=== PATIENT | female | born 1960 | race Caucasian/White ===

== ENCOUNTER 2016-02-22 19:58 | Emergency (ER) | payer MEDICARE, OTHER ==
[~2016-02-22] VITALS: Ht 165.1 cm; Wt 59.0 kg
[~2016-02-22 19:58] MED LIST: ALPR2TAB7 PO; HYDR-3652 PO; PARO30TA74 PO; RISP4TAB17 PO
[2016-02-23] MEDS ORDERED: FLUCONAZOLE (100 MG) 100 MG TABLET ONE ×2 (00:55→00:56)
[2016-02-23] MEDS: FLUCONAZOLE (100 MG) 100 MG TABLET PO ONE (01:10)
[2016-02-23 02:24] VITALS: BP 111/70
== END 2016-02-23 03:12 | disposition home or self-care (01) ==
LOC: ER 20:00
DX: F10.129 Alcohol abuse with intoxication, unspecified (principal); B37.89 Other sites of candidiasis; Z93.3 Colostomy status
CPT/HCPCS: A4362

== ENCOUNTER 2016-02-25 18:44 | Emergency (ER) | payer MEDICARE, OTHER ==
[~2016-02-25] VITALS: Ht 167.6 cm; Wt 65.8 kg
[2016-02-25] MEDS ORDERED: LORAZEPAM INJ 2 MG/ML VIAL ONE (19:19)
[2016-02-25] MEDS ORDERED: HALOPERIDOL LACTATE INJ 5 MG/ML VIAL ONE (19:19)
[2016-02-25] MEDS ORDERED: diphenhydrAMINE HCL 50 MG/ML VIAL ONE ×2 (19:19→19:20)
[2016-02-25] MEDS ORDERED: HALOPERIDOL LACTATE INJ 5 MG/ML VIAL IM ONE (19:30)
[2016-02-25] MEDS ORDERED: diphenhydrAMINE HCL 50 MG/ML VIAL IM ONE (19:30)
[2016-02-25] MEDS ORDERED: LORAZEPAM INJ 2 MG/ML VIAL IM ONE (19:30)
[2016-02-25 19:39] LABS: BASOPHILS # (AUTO) 0.1 /CMM (0.0-0.2); BASOPHILS % (AUTO) 0.9 % (0.0-2.0); DIFF TOTAL % 100 %; EOSINOPHILS % (AUTO) 0.3 % (0.0-6.0); HEMATOCRIT 40 % (33-45); LYMPHOCYTES # (AUTO) 2.6 /CMM (0.8-4.8); LYMPHOCYTES % (AUTO) 46.5 % (20.0-44.0); MEAN CORPUSCULAR HEMOGLOBIN 29 PG (26.0-33.0); MEAN CORPUSCULAR HGB CONC 32 g/dl (31.0-36.0); MEAN CORPUSCULAR VOLUME 89 fL (82-100); MONOCYTES # (AUTO) 0.5 /CMM (0.1-1.30); MONOCYTES % (AUTO) 8.2 % (2.0-12.0); NEUTROPHILS # (AUTO) 2.5 /CMM (1.8-8.9); NEUTROPHILS % (AUTO) 44.1 % (43.0-81.0); PLATELET COUNT (AUTO) 125 /CMM (150-450); RED BLOOD CELL COUNT(AUTO) 4.51 MIL/uL (4.0-5.2); WHITE BLOOD COUNT (AUTO) 5.7 K/uL (4.3-11.0)
[2016-02-25 19:46] LABS: ANION GAP 11 (5-14); CALCIUM, SERUM 8.1 mg/dL (8.5-10.1); CARBON DIOXIDE 29 mmol/L (21-32); CHLORIDE 102 mmol/L (98-107); CREATININE 0.6 mg/dL (0.6-1.3); GFR 104 mL/min (>60); GLUCOSE 104 mg/dL (74-106); SODIUM SERUM 138 mmol/L (136-145); UREA NITROGEN, BLOOD 7 mg/dL (7-18)
[2016-02-25 20:05] LABS: ACETAMINOPHEN < 1 ug/ml (10-30); SALICYLATE < 1.0 mg/dL (2.8-20.0)
[2016-02-26 06:07] VITALS: BP 136/66
== END 2016-02-26 06:08 | disposition home or self-care (01) ==
LOC: ER 18:55
DX: F10.129 Alcohol abuse with intoxication, unspecified (principal); R51 Headache; F29 Unspecified psychosis not due to a substance or known physiological condition; Z91.011 Allergy to milk products; Z93.3 Colostomy status
CPT/HCPCS: 36415; 70450; 80048; 85025; 96372 ×3; 99285; A4606; G0480; G0481; G0482; J1200 ×2; J1630; J2060; G6038-TC; G6039-TC; G6040-TC; Z7610

== ENCOUNTER 2016-02-27 09:45 | Emergency (ER) | payer MEDICARE, OTHER ==
[~2016-02-27] VITALS: Ht 167.6 cm; Wt 74.8 kg
[2016-02-27 09:54] VITALS: BP 133/81
== END 2016-02-27 11:36 | disposition home or self-care (01) ==
LOC: ER 09:47
DX: Z93.3 Colostomy status (principal); F29 Unspecified psychosis not due to a substance or known physiological condition; Z91.011 Allergy to milk products
CPT/HCPCS: 99284; A4606; Z7610

== ENCOUNTER → 2016-03-03 | Emergency (ER) | payer MEDICARE, OTHER ==
[~2016-03-03] VITALS: Ht 165.1 cm; Wt 54.4 kg
[2016-03-03 06:42] VITALS: BP 114/69
== END | disposition home or self-care (01) ==
LOC: ER 03:00
DX: F10.129 Alcohol abuse with intoxication, unspecified (principal); F29 Unspecified psychosis not due to a substance or known physiological condition; Z93.3 Colostomy status
CPT/HCPCS: 71020; 82962; 99284; A4606; Z7610

== ENCOUNTER 2016-03-05 10:55 | Emergency (ER) | payer MEDICARE, OTHER ==
[~2016-03-05] VITALS: Ht 160 cm; Wt 65.8 kg
[2016-03-05 18:49] VITALS: BP 141/84
== END 2016-03-05 18:52 | disposition home or self-care (01) ==
LOC: ER 11:05
DX: F10.129 Alcohol abuse with intoxication, unspecified (principal); Z93.3 Colostomy status; Z91.011 Allergy to milk products
CPT/HCPCS: A4606; Z7610

== ENCOUNTER 2016-03-06 19:42 | Emergency (ER) | payer MEDICARE, OTHER ==
[~2016-03-06] VITALS: Ht 160 cm; Wt 65.8 kg
[2016-03-06 20:29] VITALS: BP 122/84
== END 2016-03-06 20:30 | disposition home or self-care (01) ==
LOC: ER 19:43
DX: F10.129 Alcohol abuse with intoxication, unspecified (principal); F29 Unspecified psychosis not due to a substance or known physiological condition; Z93.3 Colostomy status; Z91.011 Allergy to milk products
CPT/HCPCS: 99283; A4606; Z7610

== ENCOUNTER 2016-03-11 22:43 | Emergency (ER) | payer MEDICARE, OTHER ==
[~2016-03-11] VITALS: Ht 165.1 cm; Wt 59.9 kg
[2016-03-12 05:51] VITALS: BP 141/76
== END 2016-03-12 05:53 | disposition home or self-care (01) ==
LOC: ER 22:44
DX: F10.129 Alcohol abuse with intoxication, unspecified (principal); F29 Unspecified psychosis not due to a substance or known physiological condition; Z93.3 Colostomy status; Z91.011 Allergy to milk products
CPT/HCPCS: 99283; A4606; Z7610

== ENCOUNTER 2016-03-13 14:28 | Emergency (ER) | payer MEDICARE, OTHER ==
[~2016-03-13] VITALS: Ht 165.1 cm; Wt 61.2 kg
[2016-03-13 14:28] VITALS: BP 128/75
== END 2016-03-13 14:49 | disposition home or self-care (01) ==
LOC: ER 14:30
DX: K94.03 Colostomy malfunction (principal); F10.10 Alcohol abuse, uncomplicated; Z93.3 Colostomy status; Z91.011 Allergy to milk products
CPT/HCPCS: 99284; A4606; Z7610

== ENCOUNTER 2016-03-13 23:06 | Emergency (ER) | payer MEDICARE, OTHER ==
[~2016-03-13] VITALS: Ht 167.6 cm; Wt 61.2 kg
[2016-03-14 07:12] VITALS: BP 112/72
== END 2016-03-14 07:12 | disposition home or self-care (01) ==
LOC: ER 23:08
DX: F10.129 Alcohol abuse with intoxication, unspecified (principal); R79.89 Other specified abnormal findings of blood chemistry; Z93.3 Colostomy status; Z91.011 Allergy to milk products
CPT/HCPCS: 82962-TC; A4606; Z7610

== ENCOUNTER 2016-03-14 16:53 | Emergency (ER) | payer MEDICARE, OTHER ==
[~2016-03-14] VITALS: Ht 167.6 cm; Wt 59.0 kg
[2016-03-14 16:56] VITALS: BP 128/69
== END 2016-03-14 17:08 | disposition left against medical advice (07) ==
LOC: ER 16:56
DX: Z53.21 Procedure and treatment not carried out due to patient leaving prior to being seen by health care provider (principal)
CPT/HCPCS: A4606; Z7610

== ENCOUNTER 2016-03-15 19:10 | Emergency (ER) | payer MEDICARE, OTHER ==
[~2016-03-15] VITALS: Ht 165.1 cm; Wt 59.0 kg
[2016-03-15 19:14] VITALS: BP 145/78
== END 2016-03-15 21:04 | disposition left against medical advice (07) ==
LOC: EDUNIT# 19:10 → ER 19:18
DX: Z53.21 Procedure and treatment not carried out due to patient leaving prior to being seen by health care provider (principal)
CPT/HCPCS: A4606; Z7610

== ENCOUNTER 2016-03-16 08:26 | Emergency (ER) | payer MEDICARE, OTHER ==
[~2016-03-16] VITALS: Ht 162.6 cm; Wt 59.0 kg
[2016-03-16 08:28] VITALS: BP 134/77
== END 2016-03-16 08:32 | disposition home or self-care (01) ==
LOC: ER 08:28
DX: F10.10 Alcohol abuse, uncomplicated (principal); K94.03 Colostomy malfunction; Z59.0 Homelessness; Z93.3 Colostomy status; Z91.011 Allergy to milk products
CPT/HCPCS: 99284; A4606; Z7610

== ENCOUNTER 2016-03-16 09:27 | Emergency (ER) | payer MEDICARE, OTHER ==
[~2016-03-16] VITALS: Ht 162.6 cm; Wt 61.2 kg
[2016-03-16 09:30] VITALS: BP 136/71
== END 2016-03-16 09:52 | disposition home or self-care (01) ==
LOC: ER 09:31
DX: F10.10 Alcohol abuse, uncomplicated (principal); K94.03 Colostomy malfunction; Z93.3 Colostomy status; Z91.011 Allergy to milk products
CPT/HCPCS: 99284; A4606; Z7610

== ENCOUNTER 2016-03-19 19:26 | Emergency (ER) | payer MEDICARE, OTHER ==
[~2016-03-19] VITALS: Ht 162.6 cm; Wt 61.2 kg
[2016-03-19 19:29] VITALS: BP 137/73
== END 2016-03-19 20:55 | disposition left against medical advice (07) ==
LOC: ER 19:31
DX: Z53.21 Procedure and treatment not carried out due to patient leaving prior to being seen by health care provider (principal)
CPT/HCPCS: A4362; A4606; Z7610

== ENCOUNTER 2016-03-20 08:13 | Emergency (ER) | payer MEDICARE, OTHER ==
[~2016-03-20] VITALS: Ht 167.6 cm; Wt 60.8 kg
[2016-03-20 08:21] VITALS: BP 116/71
== END 2016-03-20 08:51 | disposition home or self-care (01) ==
LOC: ER 08:16
DX: F10.129 Alcohol abuse with intoxication, unspecified (principal); F29 Unspecified psychosis not due to a substance or known physiological condition; Z93.3 Colostomy status; Z91.011 Allergy to milk products
CPT/HCPCS: 99283; A4606; Z7610

== ENCOUNTER 2016-03-20 23:37 | Emergency (ER) | payer MEDICARE, OTHER ==
[~2016-03-20] VITALS: Ht 165.1 cm; Wt 59.0 kg
[2016-03-20 23:40] VITALS: BP 139/72
== END 2016-03-21 00:42 | disposition home or self-care (01) ==
LOC: ER 23:39
DX: F10.129 Alcohol abuse with intoxication, unspecified (principal); Z93.3 Colostomy status; Z91.011 Allergy to milk products
CPT/HCPCS: 99284; A4362; A4606; Z7610

== ENCOUNTER → 2016-03-20 | Emergency (ER) | payer MEDICARE, OTHER ==
[~2016-03-20] VITALS: Ht 167.6 cm; Wt 74.8 kg
[2016-03-20 09:58] VITALS: BP 126/71
== END | disposition home or self-care (01) ==
LOC: ER 09:55
DX: F10.129 Alcohol abuse with intoxication, unspecified (principal); F29 Unspecified psychosis not due to a substance or known physiological condition; Z91.011 Allergy to milk products
CPT/HCPCS: 99283; A4606; Z7610

== ENCOUNTER → 2016-03-20 | Emergency (ER) | payer MEDICARE, OTHER ==
[~2016-03-20] VITALS: Ht 167.6 cm; Wt 72.6 kg
[2016-03-20 10:55] VITALS: BP 126/71
== END | disposition home or self-care (01) ==
LOC: ER 10:51
DX: F10.129 Alcohol abuse with intoxication, unspecified (principal); Z91.011 Allergy to milk products; Z59.0 Homelessness
CPT/HCPCS: 99283; A4606; Z7610

== ENCOUNTER 2016-03-21 12:45 | Emergency (ER) | payer MEDICARE, OTHER ==
[~2016-03-21] VITALS: Ht 167.6 cm; Wt 70.3 kg
[2016-03-21 13:03] VITALS: BP 133/81
== END 2016-03-21 16:30 | disposition home or self-care (01) ==
LOC: ER 12:51
DX: F10.129 Alcohol abuse with intoxication, unspecified (principal); Z93.3 Colostomy status; Z91.011 Allergy to milk products
CPT/HCPCS: 99284; A4606; Z7610

== ENCOUNTER 2016-03-25 16:33 | Emergency (ER) | payer MEDICARE, OTHER ==
[~2016-03-25] VITALS: Ht 160 cm; Wt 63.5 kg
[2016-03-25 17:14] LABS: BASOPHILS % (AUTO) 0.4 % (0.0-2.0); DIFF TOTAL % 100 %; EOSINOPHILS % (AUTO) 0.5 % (0.0-6.0); HEMATOCRIT 33 % (33-45); HEMOGLOBIN 11.4 g/dL (11.5-14.8); LYMPHOCYTES # (AUTO) 2.9 /CMM (0.8-4.8); LYMPHOCYTES % (AUTO) 41.4 % (20.0-44.0); MEAN CORPUSCULAR HEMOGLOBIN 31 PG (26.0-33.0); MEAN CORPUSCULAR HGB CONC 34 g/dl (31.0-36.0); MEAN CORPUSCULAR VOLUME 90 fL (82-100); MONOCYTES # (AUTO) 0.8 /CMM (0.1-1.30); MONOCYTES % (AUTO) 11.8 % (2.0-12.0); NEUTROPHILS # (AUTO) 3.2 /CMM (1.8-8.9); NEUTROPHILS % (AUTO) 45.9 % (43.0-81.0); PLATELET COUNT (AUTO) 143 /CMM (150-450); RED BLOOD CELL COUNT(AUTO) 3.69 MIL/uL (4.0-5.2)
[2016-03-25 17:17] LABS: INR 1.09 (0.87-1.13); PROTHROMBIN TIME 11.4 SECS (9.5-12.7)
[2016-03-25 17:20] LABS: CALCIUM, SERUM 8.5 mg/dL (8.5-10.1); CREATININE 0.6 mg/dL (0.6-1.3); POTASSIUM 3.1 mmol/L (3.5-5.1)
[2016-03-25 17:25] LABS: ALBUMIN 3.6 g/dL (3.4-5.0); BILIRUBIN,DIRECT 0.1 mg/dL (0.0-0.2); BILIRUBIN,TOTAL 0.5 mg/dL (0.2-1.0); TOTAL PROTEIN, SERUM 7.8 g/dL (6.4-8.2)
[2016-03-25 17:31] LABS: INDIRECT BILIRUBIN 0.4 mg/dL (0.0-1.1)
[2016-03-25 23:43] VITALS: BP 125/76
== END 2016-03-25 23:44 | disposition home or self-care (01) ==
LOC: ER 16:35
DX: F10.129 Alcohol abuse with intoxication, unspecified (principal); K70.10 Alcoholic hepatitis without ascites; Z93.3 Colostomy status; Z91.011 Allergy to milk products
CPT/HCPCS: 36415; 80048-TC; 80076-TC; 85025-TC; 85730-TC; A4606; G6040-TC; Z7610

== ENCOUNTER 2016-06-30 20:24 | Emergency (ER) | payer MEDICARE, OTHER | END 2016-06-30 21:23 | disposition left against medical advice (07) | LOC: ER 20:26 | DX: Z53.21 Procedure and treatment not carried out due to patient leaving prior to being seen by health care provider (principal) ==

== ENCOUNTER 2016-07-11 22:21 | Emergency (ER) | payer MEDICARE, OTHER ==
[~2016-07-11] VITALS: Ht 157.5 cm; Wt 54.4 kg
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
--- NOTE | 2016-07-12 05:15 | NUR ---
COLOSTOMY SITE CLEANED AND BAG CHANGED.
--- NOTE | 2016-07-12 05:45 | NUR ---
PT OK TO DISCHARGE PER DR MARINA. Patient discharged to home in stable condition. Written and verbal after care instructions given. Patient verbalizes understanding of instruction.Patient is awake and alert to self, day, and place. PT ambulatory with a steady gait
[2016-07-12 06:20] VITALS: BP 124/72
== END 2016-07-12 06:21 | disposition home or self-care (01) ==
LOC: ER 22:22
DX: F10.129 Alcohol abuse with intoxication, unspecified (principal); M54.2 Cervicalgia; Z93.3 Colostomy status
CPT/HCPCS: 82962; 99284; A4606; Z7610

== ENCOUNTER → 2016-07-15 | Emergency (ER) | payer MEDICARE, OTHER | END | disposition left against medical advice (07) | LOC: ER 03:59 | DX: Z53.21 Procedure and treatment not carried out due to patient leaving prior to being seen by health care provider (principal) ==

== ENCOUNTER 2016-08-22 22:28 | Emergency (ER) | payer MEDICARE, OTHER ==
[~2016-08-22] VITALS: Ht 165.1 cm; Wt 59.0 kg
[2016-08-23 08:16] VITALS: BP 112/70
== END 2016-08-23 08:17 | disposition home or self-care (01) ==
LOC: ER 22:29
DX: F10.129 Alcohol abuse with intoxication, unspecified (principal); R79.89 Other specified abnormal findings of blood chemistry; Z93.3 Colostomy status; Z91.011 Allergy to milk products
CPT/HCPCS: 82962-TC; A4606; Z7610

== ENCOUNTER 2016-09-19 12:29 | Emergency (ER) | payer MEDICARE, OTHER ==
[~2016-09-19] VITALS: Ht 162.6 cm; Wt 59.0 kg
--- NOTE | 2016-09-19 12:38 | NUR ---
HE RAINEY FROM STREET WITH ETOH NOTED ON BREATH. GOWNED PT . PLACED ON MONITOR . AWAITING MD ORDER
[2016-09-19] MEDS ORDERED: OLANZAPINE 10 MG VIAL IM ONE ×2 (12:43→13:00)
--- NOTE | 2016-09-19 13:33 | NUR ---
VERBAL ORDER FROM DR CAMILO TO GIVE ZYPREXA IM FOR AGITATION.
--- NOTE | 2016-09-19 15:15 | NUR ---
PT SLEEPING AROUSABLE TO CALL OF NAME GOES BACK TO SLEEP
[2016-09-19 20:17] VITALS: BP 120/75
--- NOTE | 2016-09-19 20:17 | NUR ---
Patient discharged to home in stable condition. Written and verbal after care instructions given. Patient verbalizes understanding of instruction.
== END 2016-09-19 20:17 | disposition home or self-care (01) ==
LOC: ER 12:30
DX: F10.129 Alcohol abuse with intoxication, unspecified (principal); Z93.3 Colostomy status; Z91.011 Allergy to milk products
CPT/HCPCS: A4606; J3490; Z7610

== ENCOUNTER 2016-09-23 20:49 | Emergency (ER) | payer MEDICARE, OTHER ==
[~2016-09-23] VITALS: Ht 165.1 cm; Wt 59.0 kg
--- NOTE | 2016-09-23 20:49 | NUR ---
BB RA78 FROM PARKING LOT. BYSTANDER CALLED 911 FOR PT SLEEPING BY CAR. PER EMS REPORT, PT FOUND W02/20 EMPTY BOTTLE OF VODKA. ETOH ODOR NOTED. PLACED ON MONITOR. AWAITING MD ORDER
--- NOTE | 2016-09-23 23:29 | NUR ---
GAVE REPORT TO FRANCES FOR SANTANA
--- NOTE | 2016-09-24 04:28 | NUR ---
patient sleeping comfortably at this time. nad noted. breathing even and unlabored. safety measures maintained.
[2016-09-24 05:56] VITALS: BP 132/74
--- NOTE | 2016-09-24 05:56 | NUR ---
Patient discharged to home in stable condition. Written and verbal after care instructions given. Patient verbalizes understanding of instruction. Patient is ambulatory with steady gait, no further complaints.
== END 2016-09-24 05:57 | disposition home or self-care (01) ==
LOC: ER 20:49
DX: F10.129 Alcohol abuse with intoxication, unspecified (principal); F17.200 Nicotine dependence, unspecified, uncomplicated; Z93.3 Colostomy status; Z91.011 Allergy to milk products
CPT/HCPCS: A4606; Z7610

== ENCOUNTER 2016-09-28 21:12 | Emergency (ER) | payer MEDICARE, OTHER ==
[~2016-09-28] VITALS: Ht 165.1 cm; Wt 65.8 kg
[2016-09-28 21:17] VITALS: BP 128/86
--- NOTE | 2016-09-28 22:17 | NUR ---
pt is medically cleared for booking. provided w/ new colostomy bag. d/c to pd in stable condition.
== END 2016-09-28 22:21 ==
LOC: ER 21:15
DX: Z00.8 Encounter for other general examination (principal); F19.10 Other psychoactive substance abuse, uncomplicated; F17.200 Nicotine dependence, unspecified, uncomplicated; Z93.3 Colostomy status; Z91.011 Allergy to milk products
CPT/HCPCS: 99283; A4606; Z7610

== ENCOUNTER 2016-10-04 21:10 | Emergency (ER) | payer MEDICARE, OTHER ==
[~2016-10-04] VITALS: Ht 165.1 cm; Wt 61.2 kg
[2016-10-04 21:22] VITALS: BP 121/75
--- NOTE | 2016-10-04 21:22 | NUR ---
pt ivana streets for etoh intoxication. ambulatory w/ steady gait to bed w/ resp even & unlabored, denies any pain, no sob, refusing to answer any questions w/ no acute distress noted. pt on continuous monitoring, bed low to ground side rails up for safety.
--- NOTE | 2016-10-04 22:08 | NUR ---
pt seen walking out of ER, ambulatory w/ steady gait, refusing to wait for any discharge instructions. pt eloped fr ER. notified.
== END 2016-10-04 22:08 | disposition left against medical advice (07) ==
LOC: ER 21:12
DX: Z53.21 Procedure and treatment not carried out due to patient leaving prior to being seen by health care provider (principal)
CPT/HCPCS: A4606; Z7610

== ENCOUNTER 2016-10-10 23:53 | Emergency (ER) | payer MEDICARE, OTHER ==
[~2016-10-10] VITALS: Ht 165.1 cm; Wt 61.2 kg
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
[2016-10-11] MEDS ORDERED: LORAZEPAM INJ 2 MG/ML VIAL ONE ×2 (00:14→00:46)
[2016-10-11] MEDS ORDERED: LORAZEPAM INJ 2 MG/ML VIAL IM ONE ×2 (00:30→01:00)
--- NOTE | 2016-10-11 01:22 | NUR ---
STILL YELLING AND USING AGGRESSIVE LANGUAGE. STRIPPED CLOTHES OFF AND WALKING AROUND NAKED. REDIRECTED AND PLACED BACK IN BED.
--- NOTE | 2016-10-11 02:40 | NUR ---
QUIET AND INTERMITTENTLY CLOSING EYES. ON MONITOR. NAD NOTED. RESP EVEN AND UNLABORED.
--- NOTE | 2016-10-11 03:10 | NUR ---
RESTING ON LT SIDE WITH EYES CLOSED BUT AROUSABLE. NO S/S OF DISTRESS NOTED. RESP EVEN AND UNLABORED. STILL ON MONITOR.
--- NOTE | 2016-10-11 04:44 | NUR ---
REMAINS RESTIGN WITH NO S/S OF DISTRESS. RESP EVEN AND UNLABORED.
--- NOTE | 2016-10-11 05:16 | NUR ---
RESTING ON RT SIDE WITH NO S/S OF DISTRESS. RESP EVEN AND UNLABORED. STILL ON MONITOR.
--- NOTE | 2016-10-11 06:56 | NUR ---
Patient discharged to home in stable condition. Written and verbal after care instructions given. Patient verbalizes understanding of instruction. Ambulatory with a steady gait
[2016-10-11 06:57] VITALS: BP 121/68
== END 2016-10-11 06:57 | disposition home or self-care (01) ==
LOC: ER 23:54
DX: F10.129 Alcohol abuse with intoxication, unspecified (principal); R45.1 Restlessness and agitation; F19.10 Other psychoactive substance abuse, uncomplicated; F17.200 Nicotine dependence, unspecified, uncomplicated; Z93.3 Colostomy status; Z91.011 Allergy to milk products
CPT/HCPCS: A4606; J2060; Z7610

== ENCOUNTER → 2016-10-10 | Emergency (ER) | payer MEDICARE, OTHER ==
[~2016-10-10] VITALS: Ht 165.1 cm; Wt 61.2 kg
--- NOTE | 2016-10-10 13:00 | NUR ---
PATIENT'S WANTS STO LEAVE ED. VERBALIZED UNDERSTANDING OF PLAN OF CARE. AWARE
== END | disposition left against medical advice (07) ==
LOC: ER 11:58
DX: Z53.21 Procedure and treatment not carried out due to patient leaving prior to being seen by health care provider (principal)
CPT/HCPCS: A4606; Z7610

== ENCOUNTER 2016-10-14 16:52 | Emergency (ER) | payer MEDICARE, OTHER ==
[~2016-10-14] VITALS: Ht 165.1 cm; Wt 65.8 kg
--- NOTE | 2016-10-14 18:15 | NUR ---
Patient is resting comfortably in bed with eyes closed. Easily aroused. VSS.
--- NOTE | 2016-10-14 19:30 | NUR ---
Patient is resting comfortably in bed with eyes closed. Easily aroused. VSS
--- NOTE | 2016-10-14 20:30 | NUR ---
PATIENT ATE [place]. CARMEN
--- NOTE | 2016-10-14 21:30 | NUR ---
Patient is resting comfortably in bed with eyes closed. Easily aroused. VSS
[2016-10-14 22:32] VITALS: BP 138/82
--- NOTE | 2016-10-14 22:32 | NUR ---
Patient is resting comfortably in bed with eyes closed. Easily aroused. VSS
--- NOTE | 2016-10-15 06:52 | NUR ---
pt ok to discharge per dr masterson. Patient discharged to home in stable condition. Written and verbal after care instructions given. Patient verbalizes understanding of instruction.Patient is awake and alert to self, day, and place. pt ambulatory with a steady gait
== END 2016-10-15 07:14 | disposition home or self-care (01) ==
LOC: ER 16:55
DX: F10.129 Alcohol abuse with intoxication, unspecified (principal); R41.82 Altered mental status, unspecified; Z93.3 Colostomy status; F17.200 Nicotine dependence, unspecified, uncomplicated
CPT/HCPCS: 99283; A4606 ×2; Z7610

== ENCOUNTER 2016-10-16 14:07 | Emergency (ER) | payer MEDICARE, OTHER ==
[~2016-10-16] VITALS: Ht 167.6 cm; Wt 65.8 kg
--- NOTE | 2016-10-16 14:14 | NUR ---
BBRA FROM STREETS: ETOH. PATIENT IS AWAKE AND ALERT. VSS
--- NOTE | 2016-10-16 14:50 | NUR ---
SHIRA TO ED FOR POSSIBLE PLACEMENT DISCUSSION
--- NOTE | 2016-10-16 15:27 | NUR ---
Social service consult for homelessness and placement. Pt. is a 56 year old female who was brought to ED for alcohol intoxication. SINDY is familiar with pt. from previous admissions. SINDY and pillowcase maker Cindy met with pt. bedside. Pt. is alert and oriented x2. Pt. has slurred speech and is intoxicated. SW offered pt. retirement placement, however pt. declined. SINDY gave pt. the following resources: Homeless [employer] Directory of resources which include emergency housing, hot meals and showers, transitional housing resources, sack lunches, health resources such as [facility], [facility], [facility]. SINDY also gave pt. list of substance abuse resources which include [facility] .
--- NOTE | 2016-10-16 15:40 | NUR ---
SINDY contacted Taylor Mcdonald at [facility] Whole Person Care-Intensive Service Recipient to inquire if she could provide any assistance to pt. Taylor informed SW she will look into it and follow up with SINDY.
--- NOTE | 2016-10-16 16:20 | NUR ---
Patient is resting comfortably in bed with eyes closed. Easily aroused. VSS
--- NOTE | 2016-10-16 17:00 | NUR ---
Patient is resting comfortably in bed with eyes closed. Easily aroused. VSS
[2016-10-16 19:27] VITALS: BP 122/78
--- NOTE | 2016-10-16 19:27 | NUR ---
Patient discharged to home in stable condition. Written and verbal after care instructions given. Patient verbalizes understanding of instruction.
--- NOTE | 2016-10-17 10:35 | NUR ---
SINDY received [facility] [address] Mobile Triage Referral form from Taylor CALLAHAN completed form and faxed to [facility] at .
== END 2016-10-16 19:28 | disposition home or self-care (01) ==
LOC: ER 14:13
DX: F10.10 Alcohol abuse, uncomplicated (principal); Z93.3 Colostomy status; Z91.011 Allergy to milk products; F17.200 Nicotine dependence, unspecified, uncomplicated
CPT/HCPCS: 99284; A4606; Z7610

== ENCOUNTER 2016-10-17 15:52 | Emergency (ER) | payer MEDICARE, OTHER ==
[~2016-10-17] VITALS: Ht 165.1 cm; Wt 65.8 kg
--- NOTE | 2016-10-17 15:57 | NUR ---
PT HAKAN FROM THE STREETS TO ER BED 12. HERE FOR ETOH. NO OBVIOUS TRAUMA NOTED. GOWNED AND PLACED ON MONITOR. NAD NOTED. AWAITING MD SALEH.
[2016-10-17 17:10] VITALS: BP 136/82
--- NOTE | 2016-10-17 17:10 | NUR ---
PT IS ROAD TESTED. AMBULATES W/ STEADY GAIT. LUANNE EASON AWARE.
--- NOTE | 2016-10-17 17:24 | NUR ---
Patient discharged to waiting room in stable condition. Written and verbal after care instructions given. Patient verbalizes understanding of instruction. Ambulatory,steady gait.
== END 2016-10-17 17:27 | disposition home or self-care (01) ==
LOC: ER 15:55
DX: F10.20 Alcohol dependence, uncomplicated (principal); F17.200 Nicotine dependence, unspecified, uncomplicated; Z91.040 Latex allergy status; Z93.3 Colostomy status
CPT/HCPCS: A4606; Z7610

== ENCOUNTER 2016-10-17 20:57 | Emergency (ER) | payer MEDICARE, OTHER ==
[~2016-10-17] VITALS: Ht 162.6 cm; Wt 54.4 kg
--- NOTE | 2016-10-17 21:00 | NUR ---
PT TO ER BB FROM STREET FOR ETOH. NO IMMEDIATE SIGNS OF DISTRESS NOTED UPON ARRIVAL. PT A/OX2. ADMITS TO DRINKING ALCOHOL. PT VITAL SIGNS NORMAL. PT CHANGED INTO GOWN AND CONNECTED TO MONITOR. WILL CONT TO MONITOR PT.
--- NOTE | 2016-10-18 00:10 | NUR ---
PT RESTING IN GURNEY. NO SIGNS OF DISTRESS NOTED. PT EASILY AROUSABLE. WILL CONT TO MONITOR PT.
--- NOTE | 2016-10-18 06:25 | NUR ---
PT OK TO DISCHARGE HOME PER DR PEACOCK. Patient discharged to home in stable condition. Written and verbal after care instructions given. Patient verbalizes understanding of instruction.Patient is awake and alert to self, day, and place. PT ambulatory with a steady gait
[2016-10-18 06:28] VITALS: BP 117/84
== END 2016-10-18 06:29 | disposition home or self-care (01) ==
LOC: ER 20:58
DX: F10.129 Alcohol abuse with intoxication, unspecified (principal); Z59.0 Homelessness; Z91.011 Allergy to milk products; F17.200 Nicotine dependence, unspecified, uncomplicated
CPT/HCPCS: 99284; A4606; Z7610

== ENCOUNTER 2016-10-18 10:40 | Emergency (ER) | payer MEDICARE, OTHER ==
[~2016-10-18] VITALS: Ht 170.2 cm; Wt 65.8 kg
[2016-10-18 10:44] VITALS: BP 133/75
--- NOTE | 2016-10-18 11:05 | NUR ---
PT BIBA FOR ETOH. NOTED AGITATED. REFUSED TO HAVE VS TAKE. SEEN BY MD FOR EVAL. SAFETY AND COMFORT MEASURES PROVIDED. WILL MONITOR.
--- NOTE | 2016-10-18 11:20 | NUR ---
PT WALKED NAKED IN THE HALLWAY, NOTED WITH STEADY GAIT. ASSISTED SAFELY TO THE BATHROOM TO SHOWER. PROVIDED, TOWELS, CLEAN TOP AND PANTS AND NEW COLOSTOMY BAG.
--- NOTE | 2016-10-18 11:30 | NUR ---
PT WANTS TO GO HOME. MD MADE AWARE. Patient discharged to home in stable condition. Written and verbal after care instructions given. Patient verbalizes understanding of instruction. Pt ambulatory with a steady gait. Provided with extra set of colostomy bag as requested.
== END 2016-10-18 12:02 | disposition home or self-care (01) ==
LOC: ER 10:43
DX: F10.129 Alcohol abuse with intoxication, unspecified (principal); Z93.3 Colostomy status; Z91.011 Allergy to milk products; F17.200 Nicotine dependence, unspecified, uncomplicated
CPT/HCPCS: 99284; A4606; Z7610

== ENCOUNTER 2016-10-18 12:43 | Emergency (ER) | payer MEDICARE, OTHER ==
[~2016-10-18] VITALS: Ht 170.2 cm; Wt 65.8 kg
--- NOTE | 2016-10-18 12:54 | NUR ---
HAKAN FROM STREET FOR ETOH. PATIENT RECEIVED AGITATED,. AGGRESSIVE, SCREAMING, YELLING AND CURSING TOWARDS STAFF. PATIENT IS AAAO4. AWARE
[2016-10-18] MEDS ORDERED: HALOPERIDOL LACTATE INJ 5 MG/ML VIAL ONE (12:59)
[2016-10-18] MEDS ORDERED: HALOPERIDOL LACTATE INJ 5 MG/ML VIAL IM ONE (13:00)
[2016-10-18] MEDS ORDERED: diphenhydrAMINE HCL 50 MG/ML VIAL IM ONE (13:30)
[2016-10-18] MEDS ORDERED: diphenhydrAMINE HCL 50 MG/ML VIAL ONE (13:33)
[2016-10-18 18:23] VITALS: BP 130/75
--- NOTE | 2016-10-18 18:23 | NUR ---
Patient discharged to home in stable condition. Written and verbal after care instructions given. Patient verbalizes understanding of instruction.
== END 2016-10-18 18:24 | disposition home or self-care (01) ==
LOC: ER 12:44
DX: F10.129 Alcohol abuse with intoxication, unspecified (principal); Z98.890 Other specified postprocedural states; Z91.011 Allergy to milk products; F17.200 Nicotine dependence, unspecified, uncomplicated
CPT/HCPCS: A4606; J1200; J1630; Z7610

== ENCOUNTER 2016-10-18 18:32 | Emergency (ER) | payer MEDICARE, OTHER ==
[~2016-10-18] VITALS: Ht 170.2 cm; Wt 65.8 kg
[2016-10-18 18:39] VITALS: BP 143/75
[2016-10-18] MEDS ORDERED: diphenhydrAMINE HCL 50 MG/ML VIAL IM ONE (19:30)
[2016-10-18] MEDS ORDERED: HALOPERIDOL LACTATE INJ 5 MG/ML VIAL IM ONE (19:30)
[2016-10-18] MEDS ORDERED: diphenhydrAMINE HCL 50 MG/ML VIAL ONE (19:38)
[2016-10-18] MEDS ORDERED: HALOPERIDOL LACTATE INJ 5 MG/ML VIAL ONE (19:38)
[2016-10-18] MEDS ORDERED: LORAZEPAM INJ 2 MG/ML VIAL ONE ×2 (20:44→21:37)
[2016-10-18] MEDS: LORAZEPAM INJ 2 MG/ML VIAL IM ONE ×2 (20:47→21:40)
--- NOTE | 2016-10-18 20:47 | NUR ---
ativan 2mg im l deltoid as ordered by dr vazquez
== END 2016-10-18 21:48 | disposition home or self-care (01) ==
LOC: ER 18:33
DX: F10.129 Alcohol abuse with intoxication, unspecified (principal); Z93.3 Colostomy status; Z91.011 Allergy to milk products; F17.200 Nicotine dependence, unspecified, uncomplicated
CPT/HCPCS: 96372 ×3; 99284; A4606; J1200; J1630; J2060 ×2; Z7610

== ENCOUNTER 2016-10-19 00:37 | Emergency (ER) | payer MEDICARE, OTHER ==
[~2016-10-19] VITALS: Ht 167.6 cm; Wt 54.4 kg
--- NOTE | 2016-10-19 00:46 | NUR ---
pt to er bb ra from street for etoh. pt sleeping upon arrival however arousable to painful stimuli. heavy smell of alcohol on pts breath. pt to er bed, changed into gown and connected to monitor. pt vital signs normal. breaths equal and unlabored. will cont to monitor pt.
--- NOTE | 2016-10-19 06:10 | NUR ---
pt ok to discharge per dr rich. Patient discharged to home in stable condition. Written and verbal after care instructions given. Patient verbalizes understanding of instruction.Patient is awake and alert to self, day, and place. pt ambulatory with a steady gait
[2016-10-19 06:30] VITALS: BP 128/74
--- NOTE | 2016-10-19 08:08 | NUR ---
SINDY received a call from Aroldo from [facility] [address] Mobile Triage team referral unit stating he received SINDY's referral and inquired where the pt. usually hangs out. SINDY informed him that pt. is usually around the [facility] area in [place]. Aroldo informed SINDY he will send a unit out to find pt. around the [facility].
== END 2016-10-19 06:31 | disposition home or self-care (01) ==
LOC: ER 00:39
DX: F10.129 Alcohol abuse with intoxication, unspecified (principal); Z93.3 Colostomy status; F17.200 Nicotine dependence, unspecified, uncomplicated; Z91.011 Allergy to milk products
CPT/HCPCS: 82962; 99283; A4606; Z7610

== ENCOUNTER → 2016-10-30 | Emergency (ER) | payer MEDICARE, OTHER | END | disposition home or self-care (01) | LOC: ER 18:49 | DX: F10.129 Alcohol abuse with intoxication, unspecified (principal); Z76.5 Malingerer [conscious simulation]; Z93.3 Colostomy status; Z91.011 Allergy to milk products ==

== ENCOUNTER 2016-11-13 09:01 | Emergency (ER) | payer MEDICARE, OTHER ==
[~2016-11-13] VITALS: Ht 157.5 cm; Wt 54.4 kg
--- NOTE | 2016-11-13 09:05 | NUR ---
HAKAN FROM STREET-- ETOH- FOUND VODKA ON HER LAP. PATIENT RECEIVED AAO3 WITH VSS.
--- NOTE | 2016-11-13 10:44 | NUR ---
SINDY contacted Dedrick Hill at [facility] informing him that pt. is currently in ED for intoxication. Dedrick informed SINDY he is on his way to [facility] ED to assess pt. for services. Addendum: 11/13/16 at 1046 by SHIRA CALLAHAN SINDY informed DANIE Tse from [facility]- Homeless Outreach coming to assess pt.
[2016-11-13 13:46] VITALS: BP 124/80
--- NOTE | 2016-11-13 13:47 | NUR ---
Patient discharged to home in stable condition. Written and verbal after care instructions given. Patient verbalizes understanding of instruction.
--- NOTE | 2016-11-13 14:16 | NUR ---
SINDY met with Dedrick from [facility] program and pt. bedside. Dedrick inquired with pt. if she wanted to go to detox and pt. stated "yes". Dedrick informed SINDY to refer patient to [facility] program and speak with Renuka Alejandro in intake. SINDY contacted Renuka Alejandro at [facility] who informed SW to fax clinicals to her at . SINDY faxed clinicals to Renuka at [facility]. Renuka informed SINDY that they do accept pt's with colostomy and will follow up with their nursing felt finishing supervisor.
== END 2016-11-13 13:48 | disposition home or self-care (01) ==
LOC: ER 09:02
DX: F10.229 Alcohol dependence with intoxication, unspecified (principal); F17.200 Nicotine dependence, unspecified, uncomplicated; Z93.3 Colostomy status; Z91.011 Allergy to milk products
CPT/HCPCS: 99283; A4606; Z7610

== ENCOUNTER 2016-11-18 23:38 | Emergency (ER) | payer MEDICARE, OTHER ==
[~2016-11-18] VITALS: Ht 157.5 cm; Wt 55.8 kg
--- NOTE | 2016-11-19 04:37 | NUR ---
Patient discharged in stable condition. Written and verbal after care instructions given. Patient verbalizes understanding of instruction. Refused to long-term placement at this time. Refused to receive a list of long-term around the area.
[2016-11-19 04:38] VITALS: BP 129/76
== END 2016-11-19 04:39 | disposition home or self-care (01) ==
LOC: ER 23:41
DX: F10.129 Alcohol abuse with intoxication, unspecified (principal); Z91.011 Allergy to milk products; Z93.3 Colostomy status; R41.82 Altered mental status, unspecified
CPT/HCPCS: 70450-TC; A4606; Z7610

== ENCOUNTER 2016-11-19 12:04 | Emergency (ER) | payer MEDICARE, OTHER ==
[~2016-11-19] VITALS: Ht 170.2 cm; Wt 65.8 kg
--- NOTE | 2016-11-19 12:06 | NUR ---
PT HAKAN FROM THE STREETS TO ER BED 16. HERE FOR ETOH. MULTIPLE ER VISITS FOR SAME REASON. NO OBVIOUS TRAUMA NOTED. AWAITING MD SALEH.
--- NOTE | 2016-11-19 12:17 | NUR ---
MATILDA EASON AT BEDSIDE FOR EVAL.
--- NOTE | 2016-11-19 22:20 | NUR ---
PT AWAKE, AMBULATORY W/ STEADY GAIT. PROVIDED W/ NEW COLOSTOMY BAG. D/C IN STABLE CONDITION.
[2016-11-19 22:29] VITALS: BP 128/64
== END 2016-11-19 22:30 | disposition home or self-care (01) ==
LOC: ER 12:07
DX: F10.129 Alcohol abuse with intoxication, unspecified (principal); Z98.890 Other specified postprocedural states; Z72.821 Inadequate sleep hygiene; R73.09 Other abnormal glucose; F17.200 Nicotine dependence, unspecified, uncomplicated
CPT/HCPCS: 82962; 99283; A4606; Z7610

== ENCOUNTER 2016-11-21 20:09 | Emergency (ER) | payer MEDICARE, OTHER ==
[~2016-11-21] VITALS: Ht 170.2 cm; Wt 65.8 kg
--- NOTE | 2016-11-21 20:10 | NUR ---
MICHAEL RA78 FROM [employer]. ETOH INTOXICATION PER EMS REPORT, BYSTANDER CALLED 911 DUE TO PT "PLAYING WITH COLOSTOMY." NAD NOTED, VSS, RESP EVEN AND UNLABORED, WAITING FOR MD SALEH.
--- NOTE | 2016-11-21 23:04 | NUR ---
Patient is resting comfortably in bed with eyes closed. Easily aroused. VSS
[2016-11-22 00:51] LABS: BASOPHILS % (AUTO) 0.6 % (0.0-2.0); EOSINOPHILS # (AUTO) 0.1 /CMM (0.0-0.7); EOSINOPHILS % (AUTO) 1.3 % (0.0-6.0); HEMATOCRIT 37 % (33-45); HEMOGLOBIN 12.5 g/dL (11.5-14.8); LYMPHOCYTES # (AUTO) 3.5 /CMM (0.8-4.8); LYMPHOCYTES % (AUTO) 69.5 % (20.0-44.0); MEAN CORPUSCULAR HEMOGLOBIN 33 PG (26.0-33.0); MEAN CORPUSCULAR HGB CONC 34 g/dl (31.0-36.0); MEAN CORPUSCULAR VOLUME 96 fL (82-100); MONOCYTES # (AUTO) 0.4 /CMM (0.1-1.30); MONOCYTES % (AUTO) 8.8 % (2.0-12.0); NEUTROPHILS % (AUTO) 19.8 % (43.0-81.0); PLATELET COUNT (AUTO) 147 /CMM (150-450); RDW COEFFICIENT OF VARIATION 14.2 (11.5-15.0); RED BLOOD CELL COUNT(AUTO) 3.82 MIL/uL (4.0-5.2)
--- NOTE | 2016-11-22 00:51 | NUR ---
PT REFUSED IV. RISK AND BENEFITS EXPLAINED X3. PT STRONGLY REFUSED.
--- NOTE | 2016-11-22 00:55 | NUR ---
PT TO CT.
[2016-11-22 00:59] LABS: CALCIUM, SERUM 8.2 mg/dL (8.5-10.1); CREATININE 0.7 mg/dL (0.6-1.3); POTASSIUM 3.6 mmol/L (3.5-5.1)
--- NOTE | 2016-11-22 01:00 | NUR ---
RETURNED FROM CT.
[2016-11-22 01:06] LABS: ALBUMIN 3.3 g/dL (3.4-5.0); BILIRUBIN,DIRECT 0.1 mg/dL (0.0-0.2); BILIRUBIN,TOTAL 0.2 mg/dL (0.2-1.0); SALICYLATE 0.6 mg/dL (2.8-20.0)
[2016-11-22 01:13] LABS: EOSINOPHILS % (MANUAL) 1 % (0-4); LYMPHOCYTES % (MANUAL) 69 % (16-48); MONOCYTES % (MANUAL) 7 % (0-11.0); NEUTROPHILS % (MANUAL) 23 (42-76)
--- NOTE | 2016-11-22 05:43 | NUR ---
Patient discharged to home in stable condition. Written and verbal after care instructions given. Patient verbalizes understanding of instruction. ambulatory with a steady gait. pt instructed not to drive. verbalize understanding.
[2016-11-22 05:48] VITALS: BP 126/55
== END 2016-11-22 06:01 | disposition home or self-care (01) ==
LOC: ER 20:11
DX: F10.229 Alcohol dependence with intoxication, unspecified (principal); R41.82 Altered mental status, unspecified
CPT/HCPCS: 36415; 70450; 71010; 72125; 80048; 80076; 80329; 85025; 93005; 99285; A4606; G0480 ×2; Z7610

== ENCOUNTER 2016-11-25 16:32 | Emergency (ER) | payer MEDICARE, OTHER ==
[~2016-11-25] VITALS: Ht 162.6 cm; Wt 65.8 kg
[2016-11-25 16:38] VITALS: BP 135/75
== END 2016-11-25 17:03 | disposition left against medical advice (07) ==
LOC: ER 16:34
DX: Z53.21 Procedure and treatment not carried out due to patient leaving prior to being seen by health care provider (principal)
CPT/HCPCS: A4606; Z7610

== ENCOUNTER 2016-11-26 21:10 | Emergency (ER) | payer MEDICARE, OTHER ==
[~2016-11-26] VITALS: Ht 157.5 cm; Wt 55.8 kg
--- NOTE | 2016-11-26 21:10 | NUR ---
PT HAKAN FROM THE STREETS TO ER BED 15. FOUND NAKED. ETOH. PT C/O R SHOULDER PAIN. VERBALLY RESPONSIVE, COOPERATIVE TO STAFF. NAD NOTED. AWAITING MD SALEH.
--- NOTE | 2016-11-26 23:29 | NUR ---
REPORT TO CHARGE NURSE LATRICE FOR SANTANA.
[2016-11-27 06:40] VITALS: BP 115/70
--- NOTE | 2016-11-27 06:42 | NUR ---
Patient discharged to home in stable condition. Written and verbal after care instructions given. Patient verbalizes understanding of instruction. pt ambulatory with a steady gait VITAL SIGNS WITHIN NORMAL LIMITS.
== END 2016-11-27 06:41 | disposition home or self-care (01) ==
LOC: ER 21:11
DX: F10.129 Alcohol abuse with intoxication, unspecified (principal); F17.200 Nicotine dependence, unspecified, uncomplicated; Z93.3 Colostomy status; Z91.040 Latex allergy status
CPT/HCPCS: 99283; A4606; Z7610

== ENCOUNTER 2016-12-28 14:47 | Emergency (ER) | payer MEDICARE, OTHER ==
[~2016-12-28] VITALS: Ht 165.1 cm; Wt 59.0 kg
[2016-12-28 14:47] VITALS: BP 132/71
== END 2016-12-28 14:56 | disposition home or self-care (01) ==
LOC: ER 14:48
DX: Z00.8 Encounter for other general examination (principal); Z93.3 Colostomy status; Z91.040 Latex allergy status; F17.200 Nicotine dependence, unspecified, uncomplicated; F10.10 Alcohol abuse, uncomplicated
CPT/HCPCS: A4362; A4606; Z7610

== ENCOUNTER 2016-12-28 18:08 | Emergency (ER) | payer MEDICARE, OTHER ==
[~2016-12-28] VITALS: Ht 167.6 cm; Wt 68.0 kg
[2016-12-28 18:08] VITALS: BP 130/75
--- NOTE | 2016-12-28 18:37 | NUR ---
Patient eloped from facility. ER notified. ANY WHEELER
== END 2016-12-28 18:39 | disposition left against medical advice (07) ==
LOC: ER 18:17
DX: F10.129 Alcohol abuse with intoxication, unspecified (principal); F10.10 Alcohol abuse, uncomplicated; F17.200 Nicotine dependence, unspecified, uncomplicated; K50.90 Crohn's disease, unspecified, without complications; Z59.0 Homelessness; Z93.3 Colostomy status; Z91.011 Allergy to milk products
CPT/HCPCS: A4606; Z7610

== ENCOUNTER 2016-12-30 16:17 | Emergency (ER) | payer MEDICARE, OTHER ==
[~2016-12-30] VITALS: Ht 162.6 cm; Wt 65.8 kg
--- NOTE | 2016-12-30 16:22 | NUR ---
PT BIBRA TO ER BED 15. HERE FOR ETOH. GOWNED AND PLACED ON MONITOR. STABLE VITALS. NAD NOTED AWAITING MD SALEH.
--- NOTE | 2016-12-30 17:46 | NUR ---
PT WANTS TO LEAVE ED. AMBULATORY W/ STEADY GAIT. D/C IN STABLE CONDITION.
[2016-12-30 17:48] VITALS: BP 132/70
== END 2016-12-30 17:49 | disposition home or self-care (01) ==
LOC: ER 16:21
DX: F10.129 Alcohol abuse with intoxication, unspecified (principal); F17.200 Nicotine dependence, unspecified, uncomplicated; Z93.3 Colostomy status; Z91.011 Allergy to milk products
CPT/HCPCS: 99283; A4606; Z7610

== ENCOUNTER 2016-12-30 19:03 | Emergency (ER) | payer MEDICARE, OTHER ==
[~2016-12-30] VITALS: Ht 162.6 cm; Wt 54.4 kg
--- NOTE | 2016-12-30 19:06 | NUR ---
PT BIBRA FROM THE STREETS TO ER BED 15. FOUND LYING IN THE STREETS. HERE FOR ETOH. HEHRE MULTIPLE TIMES FOR ETOH. PLACED ON MONITOR. NAD NOTED. AWAITING MD SALEH.
--- NOTE | 2016-12-30 19:46 | NUR ---
ECHO ODONNELL AT BEDSIDE FOR EVAL.
--- NOTE | 2016-12-30 23:00 | NUR ---
AMBULATORY W/ STEADY GAIT. D/C IN STABLE CONDITION
[2016-12-30 23:01] VITALS: BP 122/64
== END 2016-12-30 23:02 | disposition home or self-care (01) ==
LOC: ER 19:05
DX: F10.129 Alcohol abuse with intoxication, unspecified (principal); F17.200 Nicotine dependence, unspecified, uncomplicated; R79.9 Abnormal finding of blood chemistry, unspecified; Z91.011 Allergy to milk products; Z93.3 Colostomy status
CPT/HCPCS: 82962; 99283; A4606; Z7610

== ENCOUNTER 2017-01-01 13:00 | Emergency (ER) | payer MEDICARE, OTHER ==
[~2017-01-01] VITALS: Ht 157.5 cm; Wt 58.1 kg
[2017-01-01 16:45] VITALS: BP 127/71
== END 2017-01-01 17:06 | disposition home or self-care (01) ==
LOC: ER 13:02
DX: Z93.3 Colostomy status (principal); F10.10 Alcohol abuse, uncomplicated; F17.200 Nicotine dependence, unspecified, uncomplicated; Z91.040 Latex allergy status
CPT/HCPCS: 99284; A4606; Z7610

== ENCOUNTER 2017-01-05 10:50 | Emergency (ER) | payer MEDICARE, OTHER ==
[~2017-01-05] VITALS: Ht 167.6 cm; Wt 68.0 kg
--- NOTE | 2017-01-05 11:15 | NUR ---
BB ENGINE [address] ETOH INTOXICATION, NAD NOTED, VSS, RESP EVEN AND UNLABORED, AAO X2, WAITING FOR MD SALEH.
--- NOTE | 2017-01-05 14:05 | NUR ---
Patient is resting comfortably in bed with eyes closed. Easily aroused. VSS
[2017-01-05 17:07] VITALS: BP 127/85
--- NOTE | 2017-01-05 17:07 | NUR ---
Patient discharged to home in stable condition. Written and verbal after care instructions given. Patient verbalizes understanding of instruction.
== END 2017-01-05 17:08 | disposition home or self-care (01) ==
LOC: ER 10:51
DX: Z93.3 Colostomy status (principal); F10.129 Alcohol abuse with intoxication, unspecified; F17.200 Nicotine dependence, unspecified, uncomplicated; Z91.011 Allergy to milk products
CPT/HCPCS: 99284; A4606; Z7610

== ENCOUNTER 2017-01-06 14:03 | Emergency (ER) | payer MEDICARE, OTHER ==
[~2017-01-06] VITALS: Ht 162.6 cm; Wt 63.5 kg
--- NOTE | 2017-01-06 14:10 | NUR ---
BBRA [address] :ETOH INTOXICATION, NAD NOTED, VSS, RESP EVEN AND UNLABORED, WAITING FOR MD SALEH.
--- NOTE | 2017-01-06 15:11 | NUR ---
Patient is resting comfortably in bed with eyes closed. Easily aroused. VSS
--- NOTE | 2017-01-06 15:16 | NUR ---
ACCUCHECK DONE BS- 130mg/dl
--- NOTE | 2017-01-06 17:08 | NUR ---
Patient is resting comfortably in bed with eyes closed. Easily aroused. VSS
[2017-01-06 19:41] VITALS: BP 113/75
== END 2017-01-06 19:42 | disposition home or self-care (01) ==
LOC: ER 14:06
DX: F10.129 Alcohol abuse with intoxication, unspecified (principal); G93.40 Encephalopathy, unspecified; F17.200 Nicotine dependence, unspecified, uncomplicated; Z93.3 Colostomy status; Z91.011 Allergy to milk products; R73.09 Other abnormal glucose
CPT/HCPCS: 82962; 99283; A4362; A4606; Z7610

== ENCOUNTER 2017-01-07 02:18 | Emergency (ER) | payer MEDICARE, OTHER ==
[~2017-01-07] VITALS: Ht 165.1 cm; Wt 56.7 kg
--- NOTE | 2017-01-07 02:28 | NUR ---
HAKAN 878 FROM [facility] FOR ETOH. PT AOX3 RR EVEN AND UNLABORED. NO SOB NOTED. NAD NOTED. NO NVD. PT NOT DIAPHORETIC. PT PLACED ON MONITOR WAITING FOR MD SALEH. COLOSTOMY BAG INTACT.
--- NOTE | 2017-01-07 02:31 | NUR ---
ACCUCHECK = 139, DR. MARINA AWARE
--- NOTE | 2017-01-07 05:35 | NUR ---
DR. MARINA SPOKE TO PT REGARDING RESULTS
--- NOTE | 2017-01-07 05:41 | NUR ---
Patient discharged to home in stable condition. Written and verbal after care instructions given. pt refused to sign d/c paper. pt with steady gait
[2017-01-07 05:45] VITALS: BP 118/78
== END 2017-01-07 05:47 | disposition home or self-care (01) ==
LOC: ER 02:25
DX: F10.129 Alcohol abuse with intoxication, unspecified (principal); F17.200 Nicotine dependence, unspecified, uncomplicated; Z93.3 Colostomy status; Z91.011 Allergy to milk products; R73.09 Other abnormal glucose
CPT/HCPCS: 82962; 99283; A4606; Z7610

== ENCOUNTER 2017-01-08 12:24 | Emergency (ER) | payer MEDICARE, OTHER ==
[~2017-01-08] VITALS: Ht 162.6 cm; Wt 54.4 kg
--- NOTE | 2017-01-08 12:40 | NUR ---
BIB FROM STREET FOR POSSIBLE ETOH. PATIENT IS AWAKE AND ALERT. VSS
[2017-01-08 13:09] VITALS: BP 132/80
--- NOTE | 2017-01-08 13:09 | NUR ---
Patient discharged to home in stable condition. Written and verbal after care instructions given. Patient verbalizes understanding of instruction.
== END 2017-01-08 13:14 | disposition home or self-care (01) ==
LOC: ER 12:27
DX: F10.129 Alcohol abuse with intoxication, unspecified (principal); F17.200 Nicotine dependence, unspecified, uncomplicated; Z91.011 Allergy to milk products; Z93.3 Colostomy status
CPT/HCPCS: 99283; A4606; Z7610

== ENCOUNTER 2017-01-09 16:55 | Emergency (ER) | payer MEDICARE, OTHER ==
[~2017-01-09] VITALS: Ht 162.6 cm; Wt 56.7 kg
--- NOTE | 2017-01-09 16:55 | NUR ---
Patient was rustam RA from the street for etoh, pt is requesting colostomy bag change. Pt was seen here in the ER multipe times for same complaints. Pt denies any other complaints. Ambulatory to bed. vss nad rr even and unlabored. pending er md evaluation Addendum: 01/09/17 at 1739 by KATHIE patient is a/jennifer
--- NOTE | 2017-01-09 17:15 | NUR ---
pt provided w/ colostomy bag. on monitor. will cont to monitor.
--- NOTE | 2017-01-09 20:53 | NUR ---
sleeping in bed. on monitor. stable vitals. will ciont to monitor.
--- NOTE | 2017-01-09 21:44 | NUR ---
pt is aaox3. ambulatory w/ steady gait. wants to leave ed. d/c in stable condition.
[2017-01-09 21:46] VITALS: BP 125/65
== END 2017-01-09 21:48 | disposition home or self-care (01) ==
LOC: ER 16:58
DX: F10.129 Alcohol abuse with intoxication, unspecified (principal); Z43.3 Encounter for attention to colostomy; F17.200 Nicotine dependence, unspecified, uncomplicated; Z91.011 Allergy to milk products
CPT/HCPCS: 99284; A4606; Z7610

== ENCOUNTER 2017-01-10 23:12 | Emergency (ER) | payer MEDICARE, OTHER ==
[~2017-01-10] VITALS: Ht 165.1 cm; Wt 56.7 kg
--- NOTE | 2017-01-10 23:44 | NUR ---
ALEKSANDRA FROM THE [facility] FOR ETOH. PT AOX3 RR EVEN AND UNLABORED. NO SOB NOTED. NAD NOTE.D NO NVD AT THIS TIME. PT NOT DIAPHORETIC. PT PLACED ON MONITOR WAITING FOR MD SALEH.
--- NOTE | 2017-01-11 01:23 | NUR ---
PT SLEEPING IN BED IN NAD, PT ON MONITOR, MD LAURI MADE AWARE WILL CONTINUE TO MONITOR.
--- NOTE | 2017-01-11 04:53 | NUR ---
Patient given written and verbal discharge instructions. Patient verbalizes understanding of instructions. Patient is ambulatory with steady gait. Refuses offer of custodial placement. Patient given list of available shelters in surrounding area.
[2017-01-11 04:55] VITALS: BP 115/71
== END 2017-01-11 04:55 | disposition home or self-care (01) ==
LOC: ER 23:13
DX: F10.129 Alcohol abuse with intoxication, unspecified (principal); F17.200 Nicotine dependence, unspecified, uncomplicated; Z93.3 Colostomy status; Z91.011 Allergy to milk products; R73.09 Other abnormal glucose
CPT/HCPCS: 82962; 99283; A4606; Z7610

== ENCOUNTER 2017-01-11 10:41 | Emergency (ER) | payer MEDICARE, OTHER ==
[~2017-01-11] VITALS: Ht 167.6 cm; Wt 65.8 kg
[2017-01-11 10:46] VITALS: BP 136/88
== END 2017-01-11 11:45 | disposition home or self-care (01) ==
LOC: ER 10:43
DX: Z43.3 Encounter for attention to colostomy (principal); F17.200 Nicotine dependence, unspecified, uncomplicated; F10.10 Alcohol abuse, uncomplicated
CPT/HCPCS: 99284; A4606; Z7610

== ENCOUNTER 2017-01-26 09:52 | Emergency (ER) | payer MEDICARE, OTHER ==
[~2017-01-26] VITALS: Ht 165.1 cm; Wt 55.8 kg
--- NOTE | 2017-01-26 10:00 | NUR ---
BIB FROM STREET FOR POSSIBLE ETOH. NO APPARENT DISTRESS. AFEBRILE. VSS. CONNECTED PT TO TELE MONITOR. PENDING MD SALEH
[2017-01-26 11:15] LABS: BASOPHILS % (AUTO) 0.7 % (0.0-2.0); HEMATOCRIT 49 % (33-45); HEMOGLOBIN 15.9 g/dL (11.5-14.8); LYMPHOCYTES % (AUTO) 57.3 % (20.0-44.0); MEAN CORPUSCULAR HEMOGLOBIN 32 PG (26.0-33.0); MEAN CORPUSCULAR HGB CONC 33 g/dl (31.0-36.0); MEAN CORPUSCULAR VOLUME 96 fL (82-100); MONOCYTES # (AUTO) 0.3 /CMM (0.1-1.30); NEUTROPHILS # (AUTO) 2.6 /CMM (1.8-8.9); PLATELET COUNT (AUTO) 210 /CMM (150-450); RED BLOOD CELL COUNT(AUTO) 5.05 MIL/uL (4.0-5.2); WHITE BLOOD COUNT (AUTO) 6.9 K/uL (4.3-11.0)
--- NOTE | 2017-01-26 11:20 | NUR ---
PROVIDED BED BATH AT AND CHANGED THE COLOSTOMY BAG. PATIENT TOLERATED THE PROCEDURE.
--- NOTE | 2017-01-26 11:24 | NUR ---
PROVIDED WATER AND WARM BLANKET FOR COMFORT.
[2017-01-26 11:26] LABS: CALCIUM, SERUM 9.1 mg/dL (8.5-10.1); CARBON DIOXIDE 15 mmol/L (21-32); CHLORIDE 98 mmol/L (98-107); CREATININE 0.6 mg/dL (0.6-1.3); GLUCOSE 62 mg/dL (74-106); POTASSIUM 3.6 mmol/L (3.5-5.1); SODIUM SERUM 138 mmol/L (136-145); UREA NITROGEN, BLOOD 13 mg/dL (7-18)
[2017-01-26 11:34] LABS: ALANINE AMINOTRANSFERASE 313 U/L (12-78); ALBUMIN 4.3 g/dL (3.4-5.0); ALCOHOL, BLOOD 347 mg/dL (0-0); ALKALINE PHOSPHATASE 156 U/L (46-116); ASPARTATE AMINOTRANSFERASE 643 U/L (15-37); BILIRUBIN,DIRECT 0.4 mg/dL (0.0-0.2); BILIRUBIN,TOTAL 0.8 mg/dL (0.2-1.0); TOTAL PROTEIN, SERUM 9.1 g/dL (6.4-8.2)
[2017-01-26 11:36] LABS: ACETAMINOPHEN < 10 ug/ml (10-30); SALICYLATE 1.3 mg/dL (2.8-20.0)
[2017-01-26 11:36] LABS: APPEARANCE,URINE Slightly Cloudy (CLEAR); BILIRUBIN,URINE SMALL (NEGATIVE); BLOOD, URINE Moderate Ery/uL (NEGATIVE); COLOR,URINE Yellow (YELLOW); KETONES,URINE 15 (NEGATIVE); LEUKOCYTE ESTERASE ,URINE Negative (NEGATIVE); NITRITE, URINE Negative (NEGATIVE); PH,URINE 5.5 (5.0-8.0); PROTEIN,URINE 100 mg/dl (NEGATIVE); UGLUCOSE Negative (NEGATIVE); UROBILINOGEN,URINE 0.2 EU/dL (0.2)
[2017-01-26 11:53] LABS: BACTERIA,URINE 3+ /HPF (None Seen); HYALINE CASTS, URINE Moderate /LPF (None Seen); SQUAMOUS EPITHELIAL CELL,UR Rare /HPF (None Seen)
--- NOTE | 2017-01-26 14:15 | NUR ---
WEAVING TEACHER AT TALKING TO PATIENT.
--- NOTE | 2017-01-26 14:20 | NUR ---
Social Work Consult requested due to substance use and homelessness. call worker person met with the patient beside. Patient is alert and oriented x3. Per report, patient presented as intoxicated, covered with stool, found walking around the [employer] parking lot half clothed. Patient reports that she does not remember how she came to the emergency room. She notes that she has been living on the streets for some time now (over one year). She states that she gets SSI ($900/month) that is enough for her to make ends meet. She does admit to ETOH abuse and states "I drink too frequently, everyday." She denies drug use. Patient states she does not have an emergency contact. SW talked to the patient about her ETOH use and patient admitted to drinking everyday and feeling like she has an ETOH problem. Patient denied placement in a substance abuse treatment program at this time. SW talked to the patient about [facility] programs and she reported that she was interested in this. SW informed her that there are currently pear picker locations that will take her to the correction. Patient agreed to go to [address] [address] with pickup location located at [address] [place] [address]. Nursing Assistant Store Manager Operations to provide a bus token for the patient. Patient states she is okay with a bus token being provided. She was given bus directions from this social media marketer and patient stated that she understood the directions and is agreeing to go to the pickup location. SW informed patient that pickup times are every hour starting at 5:30PM to 8:30PM. Patient signed homeless patient waiver form and original was placed in the patient's chart. Patient was also given homeless resources (food [place], alternative correction information, low cost/free medical resources, substance abuse treatment information) and patient appreciated the information given to her. ER charge nurse Jeremy and her nurse Junior were informed of the plan to discharge patient to the pickup location ([address] [place] [address]) with a bus token. call worker person provided patient with pants and a t-shirt. Patient will be provided with shoes prior to her departure. Addendum: 01/26/17 at 1545 by AYAH CALLAHAN Per nursing last model department supervisor, patient will be given a taxi voucher. Informed that patient must be at pickup location at least 30-45 mins prior as pickup times are 5:30pm, 6:30Pm, 7:30PM, 8:30PM
--- NOTE | 2017-01-26 14:41 | NUR ---
Patient is resting comfortably in bed with eyes closed. Easily aroused. VSS
--- NOTE | 2017-01-26 16:10 | NUR ---
Patient discharged to home in stable condition. Written and verbal after care instructions given. Patient verbalizes understanding of instruction.
[2017-01-26 16:11] VITALS: BP 123/78
== END 2017-01-26 16:13 | disposition home or self-care (01) ==
LOC: ER 09:54
DX: F10.129 Alcohol abuse with intoxication, unspecified (principal); F17.200 Nicotine dependence, unspecified, uncomplicated; Z91.011 Allergy to milk products
CPT/HCPCS: 36415; 80048; 80076; 80305; 80329; 81001; 85025; 87086; 99284; A4362; A4606; G0480 ×2; 81000-TC; Z7610

== ENCOUNTER 2017-02-13 16:50 | Emergency (ER) | payer MEDICARE, OTHER ==
[~2017-02-13] VITALS: Ht 170.2 cm; Wt 61.2 kg
--- NOTE | 2017-02-13 17:05 | NUR ---
NO ACUTE DISTRESS; THE PATIENT WAS PLACED ON ER 15
--- NOTE | 2017-02-13 17:13 | NUR ---
COLOSTOMY BAG - CHANGED BY AYUSH FAY AND JIGAR EMT
--- NOTE | 2017-02-13 17:52 | NUR ---
THE PATIENT WALKED 30 FEET TOLEATED WELL - THE PATIENT REQUEST'S THAT SHE STAYS AND SLEEP BECUASE " ITS COLD OUTSIDE".
--- NOTE | 2017-02-13 18:00 | NUR ---
Patient discharged to home in stable condition. Written and verbal after care instructions given. Patient verbalizes understanding of instruction.
[2017-02-13 19:22] VITALS: BP 138/80
== END 2017-02-13 18:00 | disposition home or self-care (01) ==
LOC: ER 16:53
DX: F10.129 Alcohol abuse with intoxication, unspecified (principal); F17.200 Nicotine dependence, unspecified, uncomplicated; Z93.3 Colostomy status; Z91.011 Allergy to milk products
CPT/HCPCS: 99284; A4606; Z7610

== ENCOUNTER 2017-03-05 12:55 | Emergency (ER) | payer MEDICARE, OTHER ==
[~2017-03-05] VITALS: Ht 177.8 cm; Wt 68.0 kg
[~2017-03-05 12:55] MED LIST changes: -HYDR-3652 PO; +HYDR-3972 PO
[2017-03-05 12:58] VITALS: BP 134/77
== END 2017-03-08 13:15 | disposition home or self-care (01) ==
LOC: ER 12:58
DX: F10.129 Alcohol abuse with intoxication, unspecified (principal); Z93.3 Colostomy status; Z91.011 Allergy to milk products
CPT/HCPCS: A4606; Z7610

== ENCOUNTER 2017-03-08 12:52 | Emergency (ER) | payer MEDICARE, OTHER ==
[~2017-03-08] VITALS: Ht 162.6 cm; Wt 65.8 kg
[~2017-03-08 12:52] MED LIST changes: +HYDR-3652 PO; -HYDR-3972 PO
[2017-03-08 13:30] LABS: BASOPHILS % (AUTO) 0.5 % (0.0-2.0); EOSINOPHILS % (AUTO) 0.4 % (0.0-6.0); HEMATOCRIT 39 % (33-45); HEMOGLOBIN 13.2 g/dL (11.5-14.8); LYMPHOCYTES # (AUTO) 2.4 /CMM (0.8-4.8); LYMPHOCYTES % (AUTO) 43.6 % (20.0-44.0); MEAN CORPUSCULAR HEMOGLOBIN 32 PG (26.0-33.0); MEAN CORPUSCULAR HGB CONC 34 g/dl (31.0-36.0); MEAN CORPUSCULAR VOLUME 95 fL (82-100); MONOCYTES # (AUTO) 0.4 /CMM (0.1-1.30); MONOCYTES % (AUTO) 6.8 % (2.0-12.0); NEUTROPHILS # (AUTO) 2.8 /CMM (1.8-8.9); NEUTROPHILS % (AUTO) 48.7 % (43.0-81.0); PLATELET COUNT (AUTO) 114 /CMM (150-450); RDW COEFFICIENT OF VARIATION 12.4 (11.5-15.0); RED BLOOD CELL COUNT(AUTO) 4.09 MIL/uL (4.0-5.2); WHITE BLOOD COUNT (AUTO) 5.6 K/uL (4.3-11.0)
[2017-03-08 13:56] LABS: CALCIUM, SERUM 8.6 mg/dL (8.5-10.1); CREATININE 0.5 mg/dL (0.6-1.3); POTASSIUM 2.9 mmol/L (3.5-5.1)
[2017-03-08 14:04] LABS: BILIRUBIN,DIRECT 0.2 mg/dL (0.0-0.2); BILIRUBIN,TOTAL 0.7 mg/dL (0.2-1.0); TOTAL PROTEIN, SERUM 8.1 g/dL (6.4-8.2)
[2017-03-08 14:05] LABS: SALICYLATE 0.2 mg/dL (2.8-20.0)
--- NOTE | 2017-03-08 14:25 | NUR ---
56 yo female bb ra from [employer]. patient is a/o x 3, admits to ETOH drinking. patient assisted to er bed, skin warm and dry, resp even and unlabored.awaiting orders from provider, will continue to monitor
[2017-03-08] MEDS ORDERED: IV PREMIX 0.45% NS + KCL 1,000 ML IV ONE (14:36)
--- NOTE | 2017-03-08 14:54 | NUR ---
22G RIGHT WRIST IV STARTED. MEDICATED PT ORDERED. CALLED PHARMACY FOR 1/2NS WITH 20 MEQ K IN 1000ML.
[2017-03-08] MEDS ORDERED: IV NS 0.9% 1,000 ML BAG IV ONE (15:00)
[2017-03-08 18:56] VITALS: BP 121/68
--- NOTE | 2017-03-08 18:57 | NUR ---
Patient discharged to home in stable condition. Written and verbal after care instructions given. Patient verbalizes understanding of instruction.IV removed. Catheter intact and site benign. Pressure and 4x4 applied to site. No bleeding noted. pt ambulatory with a steady gait
== END 2017-03-08 18:58 | disposition home or self-care (01) ==
LOC: ER 12:57
DX: F10.129 Alcohol abuse with intoxication, unspecified (principal); F17.200 Nicotine dependence, unspecified, uncomplicated; Z93.3 Colostomy status; Z91.011 Allergy to milk products
CPT/HCPCS: 36415; 80048; 80076; 80329; 85025; 96360; 96361; 99285; A4606; G0480 ×2; Z7610

== ENCOUNTER 2017-03-12 23:45 | Emergency (ER) | payer MEDICARE, OTHER ==
[~2017-03-12] VITALS: Ht 162.6 cm; Wt 59.0 kg
--- NOTE | 2017-03-12 23:55 | NUR ---
BB RA78 FROM STORE. PER EMS "ETOH UNABLE TO LEAVE STORE" DUE TO UNSTEADY GAIT. PT IS AAOX3 WITH WARM AND PINK SKIN. RESP ARE EVEN AND UNLABORED. PT HAS BEEN GIVEN WARM BLANKETS AND SLEEPING. AWAITING MD SALEH.
--- NOTE | 2017-03-13 01:33 | NUR ---
PT APPEARS TO BE RESTING COMFORTABLY WITH NO S/S OF PAIN OR DISTRESS. RESP EVEN AND UNLABORED. WILL CONTINUE TO MONITOR THE PT.
--- NOTE | 2017-03-13 03:08 | NUR ---
Patient is resting comfortably in bed with eyes closed. Easily aroused. VSS
--- NOTE | 2017-03-13 04:45 | NUR ---
Patient is resting comfortably in bed with eyes closed. Easily aroused. VSS
--- NOTE | 2017-03-13 05:41 | NUR ---
Patient discharged to home in stable condition. Pt ambulated with steady gait. Written and verbal after care instructions given. Patient verbalizes understanding of instruction. VSS
[2017-03-13 05:43] VITALS: BP 116/86
== END 2017-03-13 05:44 | disposition home or self-care (01) ==
LOC: ER 23:46
DX: F10.129 Alcohol abuse with intoxication, unspecified (principal); F17.200 Nicotine dependence, unspecified, uncomplicated; Z93.3 Colostomy status; Z91.011 Allergy to milk products
CPT/HCPCS: 82962-TC; A4606; Z7610

== ENCOUNTER 2017-03-13 12:29 | Emergency (ER) | payer MEDICARE, OTHER ==
[~2017-03-13] VITALS: Ht 162.6 cm; Wt 54.4 kg
[2017-03-13 12:29] VITALS: BP 106/64
--- NOTE | 2017-03-13 12:44 | NUR ---
COLOSTOMY BAG PROVIDED.
--- NOTE | 2017-03-13 12:44 | NUR ---
MEAL TRAY AT
== END 2017-03-13 15:09 | disposition home or self-care (01) ==
LOC: ER 12:32
DX: F10.129 Alcohol abuse with intoxication, unspecified (principal); F17.200 Nicotine dependence, unspecified, uncomplicated; Z93.3 Colostomy status; Z91.011 Allergy to milk products
CPT/HCPCS: A4606; Z7610

== ENCOUNTER 2017-03-13 19:32 | Emergency (ER) | payer MEDICARE, OTHER ==
[~2017-03-13] VITALS: Ht 165.1 cm; Wt 59.0 kg
--- NOTE | 2017-03-13 19:55 | NUR ---
BB RA; ALCOHOL INTOXICATION, NAD NOTED, VSS, RESP EVEN AND UNLABORED. PT PUT ON MONITOR. WAITING FOR MD.
--- NOTE | 2017-03-13 21:54 | NUR ---
Patient is resting comfortably in bed with eyes closed. Easily aroused. VSS
--- NOTE | 2017-03-13 23:36 | NUR ---
PT WAS PUT ON MONITOR, ENDORSED TO THE CHARGE NURSE.
--- NOTE | 2017-03-13 23:37 | NUR ---
Patient is resting comfortably in bed with eyes closed. Easily aroused. VSS
[2017-03-14 00:42] VITALS: BP 110/72
== END 2017-03-14 00:43 | disposition home or self-care (01) ==
LOC: ER 19:34
DX: F10.129 Alcohol abuse with intoxication, unspecified (principal); F17.200 Nicotine dependence, unspecified, uncomplicated; Z91.011 Allergy to milk products; Z93.3 Colostomy status
CPT/HCPCS: A4606; Z7610

== ENCOUNTER 2017-03-14 08:37 | Emergency (ER) | payer MEDICARE, OTHER ==
[~2017-03-14] VITALS: Ht 162.6 cm; Wt 65.8 kg
--- NOTE | 2017-03-14 12:00 | NUR ---
Patient is resting comfortably in bed with eyes closed. Easily aroused. VSS
[2017-03-14 13:40] VITALS: BP 108/51
--- NOTE | 2017-03-14 14:24 | NUR ---
Pt ambulatory with a steady gait.
--- NOTE | 2017-03-14 14:28 | NUR ---
Patient discharged to home in stable condition. Written and verbal after care instructions given. Patient verbalizes understanding of instruction. Pt walked out in a steady gait.
== END 2017-03-14 15:27 | disposition left against medical advice (07) ==
LOC: ER 08:37
DX: F10.129 Alcohol abuse with intoxication, unspecified (principal); R40.4 Transient alteration of awareness; F17.200 Nicotine dependence, unspecified, uncomplicated; Z93.3 Colostomy status; Z98.890 Other specified postprocedural states; Z91.011 Allergy to milk products
CPT/HCPCS: A4606; Z7610

== ENCOUNTER 2017-03-14 20:06 | Emergency (ER) | payer MEDICARE, OTHER ==
[~2017-03-14] VITALS: Ht 157.5 cm; Wt 59.0 kg
[2017-03-14 20:06] VITALS: BP 148/89
--- NOTE | 2017-03-14 20:30 | NUR ---
PT PROVIDED WITH NEW COLOSTOMY BAG, TOWELS, [place] TO WIPE HERSLEF WIT AND PANTS REQUESTED.
--- NOTE | 2017-03-15 03:18 | NUR ---
PT ELOPED FROM FACILITY.
== END 2017-03-15 03:20 | disposition left against medical advice (07) ==
LOC: ER 20:08
DX: Z00.8 Encounter for other general examination (principal); F10.20 Alcohol dependence, uncomplicated; F17.200 Nicotine dependence, unspecified, uncomplicated; Z93.3 Colostomy status; Z91.011 Allergy to milk products
CPT/HCPCS: A4606; Z7610

== ENCOUNTER 2017-04-04 22:31 | Emergency (ER) | payer MEDICARE, OTHER ==
[~2017-04-04] VITALS: Ht 157.5 cm; Wt 59.0 kg
[2017-04-04 22:31] VITALS: BP 142/96
[~2017-04-04 22:31] MED LIST changes: -HYDR-3652 PO; +HYDR-3972 PO
--- NOTE | 2017-04-05 00:39 | NUR ---
STATED "GIVE ME A SANDWICH, BLANKET AND COLOSTOMY BAG AND I WILL LEAVE HERE". DENEIS ANY MEDICAL OR PSYCH PROBLEMS. NON DIAPHROETIC. RESP EVEN AND UNLABORED. DR. GAMBOA NOTIFIED
== END 2017-04-05 00:41 | disposition home or self-care (01) ==
LOC: ER 22:37
DX: Z53.21 Procedure and treatment not carried out due to patient leaving prior to being seen by health care provider (principal)
CPT/HCPCS: A4606; Z7610

== ENCOUNTER 2017-04-08 23:32 | Emergency (ER) | payer MEDICARE, OTHER ==
[~2017-04-08] VITALS: Ht 162.6 cm; Wt 59.0 kg
[2017-04-08 23:32] VITALS: BP 130/76
[2017-04-09 00:08] LABS: BASOPHILS % (AUTO) 0.4 % (0.0-2.0); EOSINOPHILS # (AUTO) 0.1 /CMM (0.0-0.7); HEMATOCRIT 36 % (33-45); HEMOGLOBIN 12.5 g/dL (11.5-14.8); LYMPHOCYTES # (AUTO) 2.6 /CMM (0.8-4.8); LYMPHOCYTES % (AUTO) 41.2 % (20.0-44.0); MEAN CORPUSCULAR HEMOGLOBIN 33 PG (26.0-33.0); MEAN CORPUSCULAR HGB CONC 35 g/dl (31.0-36.0); MEAN CORPUSCULAR VOLUME 93 fL (82-100); MONOCYTES # (AUTO) 0.5 /CMM (0.1-1.30); MONOCYTES % (AUTO) 8.2 % (2.0-12.0); NEUTROPHILS # (AUTO) 3.2 /CMM (1.8-8.9); NEUTROPHILS % (AUTO) 49.2 % (43.0-81.0); PLATELET COUNT (AUTO) 116 /CMM (150-450); RDW COEFFICIENT OF VARIATION 12.9 (11.5-15.0); RED BLOOD CELL COUNT(AUTO) 3.83 MIL/uL (4.0-5.2); WHITE BLOOD COUNT (AUTO) 6.4 K/uL (4.3-11.0)
[2017-04-09 00:38] LABS: CALCIUM, SERUM 8.6 mg/dL (8.5-10.1); CREATININE 0.5 mg/dL (0.6-1.3)
[2017-04-09 00:39] LABS: ALBUMIN 3.8 g/dL (3.4-5.0); BILIRUBIN,DIRECT 0.4 mg/dL (0.0-0.2); BILIRUBIN,TOTAL 1.1 mg/dL (0.2-1.0); TOTAL PROTEIN, SERUM 7.9 g/dL (6.4-8.2)
== END 2017-04-09 01:15 | disposition home or self-care (01) ==
LOC: ER 23:33
DX: F10.129 Alcohol abuse with intoxication, unspecified (principal); F17.200 Nicotine dependence, unspecified, uncomplicated; Z59.0 Homelessness; Z76.5 Malingerer [conscious simulation]; Z93.3 Colostomy status; Z91.011 Allergy to milk products
CPT/HCPCS: 36415 ×2; 80048; 80076; 83690; 85025; 99284; A4606; G0480; Z7610

== ENCOUNTER 2017-04-13 12:36 | Emergency (ER) | payer MEDICARE, OTHER ==
[~2017-04-13] VITALS: Ht 162.6 cm; Wt 65.8 kg
--- NOTE | 2017-04-13 19:49 | NUR ---
PT OK TO DISCHARGE PER DR RINALDI. Patient discharged to home in stable condition. Written and verbal after care instructions given. Patient verbalizes understanding of instruction.Patient is awake and alert to self, day, and place. PT ambulatory with a steady gait
[2017-04-13 19:52] VITALS: BP 142/80
== END 2017-04-13 19:53 | disposition home or self-care (01) ==
LOC: ER 12:37
DX: F10.129 Alcohol abuse with intoxication, unspecified (principal); R51 Headache; F17.200 Nicotine dependence, unspecified, uncomplicated; Z91.011 Allergy to milk products; Z93.3 Colostomy status; Z98.890 Other specified postprocedural states
CPT/HCPCS: 70450; 99284; A4362; A4606; Z7610

== ENCOUNTER 2017-04-20 07:13 | Emergency (ER) | payer MEDICARE, OTHER ==
[~2017-04-20] VITALS: Ht 162.6 cm; Wt 65.8 kg
[2017-04-20 07:19] VITALS: BP 143/75
== END 2017-04-20 12:45 | disposition home or self-care (01) ==
LOC: ER 07:14
DX: Z93.3 Colostomy status (principal); Z59.0 Homelessness; F10.10 Alcohol abuse, uncomplicated; F17.200 Nicotine dependence, unspecified, uncomplicated
CPT/HCPCS: 99283; A4606 ×2; Z7610

== ENCOUNTER 2017-04-20 22:56 | Emergency (ER) | payer MEDICARE, OTHER ==
--- NOTE | 2017-04-20 23:05 | NUR ---
PT AWOLED FROM FLIGHT SERVICE SPECIALIST KRISTAL, PT WALKED OUT WITH A STEADY GAIT
== END 2017-04-20 23:07 | disposition left against medical advice (07) ==
LOC: ER 22:57
DX: Z53.21 Procedure and treatment not carried out due to patient leaving prior to being seen by health care provider (principal)

== ENCOUNTER 2017-04-23 18:58 | Emergency (ER) | payer MEDICARE, OTHER ==
[~2017-04-23] VITALS: Ht 167.6 cm; Wt 63.5 kg
[2017-04-23 19:00] VITALS: BP 124/84
--- NOTE | 2017-04-23 19:29 | NUR ---
ALCON FUENTES FROM DIRECTOR OF CASINO MARKETING KRISTAL
== END 2017-04-23 19:30 | disposition left against medical advice (07) ==
LOC: ER 19:04
DX: Z53.21 Procedure and treatment not carried out due to patient leaving prior to being seen by health care provider (principal)
CPT/HCPCS: A4606; Z7610

== ENCOUNTER 2017-05-04 04:28 | Emergency (ER) | payer MEDICARE, OTHER ==
[~2017-05-04] VITALS: Ht 157.5 cm; Wt 56.2 kg
[2017-05-04 04:30] VITALS: BP 158/73
== END 2017-05-04 04:39 | disposition home or self-care (01) ==
LOC: ER 04:36
DX: Z93.3 Colostomy status (principal); F10.10 Alcohol abuse, uncomplicated; F17.200 Nicotine dependence, unspecified, uncomplicated; Z91.011 Allergy to milk products
CPT/HCPCS: A4606; Z7610

== ENCOUNTER 2017-05-05 14:59 | Emergency (ER) | payer MEDICARE, OTHER ==
--- NOTE | 2017-05-05 15:39 | NUR ---
Patient left without being seen by ER Physician
== END 2017-05-05 15:41 | disposition left against medical advice (07) ==
LOC: ER 15:01
DX: Z53.21 Procedure and treatment not carried out due to patient leaving prior to being seen by health care provider (principal)

== ENCOUNTER 2017-05-19 19:51 | Emergency (ER) | payer MEDICARE, OTHER ==
[~2017-05-19] VITALS: Ht 165.1 cm; Wt 59.0 kg
[2017-05-19 19:55] VITALS: BP 122/86
--- NOTE | 2017-05-19 20:02 | NUR ---
57 YO FEMALE BB RA. PATIENT IS ALERT AND ORIENT X 3, C/O ABD DISCOMFORT AND COLONOSTOMY CHANGE. PATIENT AMBULATED TO ER BED WITH STEADY GAIT, SKIN WARM AND DRY, RESP EVEN AND UNLABORED. AWAITING ORDERS FROM PROVIDER, WILL CONTINUE TO MONITOR.
== END 2017-05-19 21:24 | disposition home or self-care (01) ==
LOC: ER 19:52
DX: Z43.3 Encounter for attention to colostomy (principal); F10.10 Alcohol abuse, uncomplicated; F17.290 Nicotine dependence, other tobacco product, uncomplicated; Z91.011 Allergy to milk products
CPT/HCPCS: A4606; Z7610

== ENCOUNTER 2017-06-07 18:38 | Emergency (ER) | payer MEDICARE, OTHER ==
[~2017-06-07] VITALS: Ht 170.2 cm; Wt 61.2 kg
[2017-06-07] MEDS ORDERED: IV NS 0.9% 1,000 ML BAG IV ONE (19:00)
[2017-06-07] MEDS ORDERED: ONDANSETRON HCL/PF 4 MG/2 ML VIAL IVP ONE (19:00)
--- NOTE | 2017-06-07 19:05 | NUR ---
TO BED 15 A 57 YO FEMALE BBRA [address]: ETOH. PATIENT IS ALERT AND RESPONSIVE. HX CHRONIC ETOH DRINKER. VSS. NAD NOTED. SKIN WARM AND DRY.
[2017-06-07] MEDS ORDERED: ONDANSETRON HCL/PF 4 MG/2 ML VIAL ONE (19:06)
[2017-06-07 19:07] LABS: BASOPHILS % (AUTO) 0.6 % (0.0-2.0); EOSINOPHILS % (AUTO) 0.7 % (0.0-6.0); HEMATOCRIT 40 % (33-45); HEMOGLOBIN 13.6 g/dL (11.5-14.8); LYMPHOCYTES # (AUTO) 3.4 /CMM (0.8-4.8); LYMPHOCYTES % (AUTO) 69.8 % (20.0-44.0); MEAN CORPUSCULAR HGB CONC 34 g/dl (31.0-36.0); MEAN CORPUSCULAR VOLUME 94 fL (82-100); MONOCYTES # (AUTO) 0.4 /CMM (0.1-1.30); MONOCYTES % (AUTO) 8.2 % (2.0-12.0); NEUTROPHILS % (AUTO) 20.7 % (43.0-81.0); PLATELET COUNT (AUTO) 157 /CMM (150-450); RED BLOOD CELL COUNT(AUTO) 4.29 MIL/uL (4.0-5.2); WHITE BLOOD COUNT (AUTO) 4.8 K/uL (4.3-11.0)
[2017-06-07 19:45] LABS: CALCIUM, SERUM 8.3 mg/dL (8.5-10.1); CREATININE 0.6 mg/dL (0.6-1.3); POTASSIUM 2.9 mmol/L (3.5-5.1)
[2017-06-07 20:10] LABS: BILIRUBIN,DIRECT 0.3 mg/dL (0.0-0.2); BILIRUBIN,TOTAL 0.4 mg/dL (0.2-1.0)
[2017-06-07 20:11] LABS: ALBUMIN 3.4 g/dL (3.4-5.0); SALICYLATE 0.6 mg/dL (2.8-20.0); TOTAL PROTEIN, SERUM 7.5 g/dL (6.4-8.2)
--- NOTE | 2017-06-07 23:23 | NUR ---
PATIENT IS AWAKE, SEEN WALKING TO THE BATHROOM WITH STEADY GAIT.
--- NOTE | 2017-06-08 00:20 | NUR ---
PROVIDED PATIENT WITH NEW COLOSTOMY BAG. PLACED COLOSTOMY BAG OVER STOMA.
--- NOTE | 2017-06-08 03:35 | NUR ---
PATIENT IS SLEEPING COMFORTABLY AT THIS TIME.
--- NOTE | 2017-06-08 05:57 | NUR ---
Patient discharged in stable condition. Written and verbal after care instructions given. Patient verbalizes understanding of instruction. Patient is ambulatory with steady gait, vss. nad noted. no further complaints.
[2017-06-08 05:58] VITALS: BP 127/78
== END 2017-06-08 05:59 | disposition home or self-care (01) ==
LOC: ER 18:44
DX: F10.129 Alcohol abuse with intoxication, unspecified (principal); F17.200 Nicotine dependence, unspecified, uncomplicated; Z93.3 Colostomy status; Z91.011 Allergy to milk products
CPT/HCPCS: 36415; 80048-TC; 80076-TC; 85025-TC; A4606; G0480; J2405; J7030; Z7610

== ENCOUNTER 2017-06-10 21:07 | Emergency (ER) | payer MEDICARE, OTHER ==
[~2017-06-10] VITALS: Ht 165.1 cm; Wt 56.7 kg
[2017-06-10 21:13] VITALS: BP 127/90
--- NOTE | 2017-06-10 21:13 | NUR ---
pt to er bb ra from street for etoh. no immediate signs of distress noted. pt vital signs stable. no signs of trauma noted. pt to er bed, changed into gown and connected to monitor.
--- NOTE | 2017-06-11 03:15 | NUR ---
pt began yelling throughout er, threw her colostomy bag at staff. colosomy site cleaned and new bag placed.
--- NOTE | 2017-06-11 03:18 | NUR ---
new clean clothes provided to pt,.
--- NOTE | 2017-06-11 03:20 | NUR ---
pt eloped from er
== END 2017-06-11 03:36 | disposition left against medical advice (07) ==
LOC: ER 21:08
DX: F10.129 Alcohol abuse with intoxication, unspecified (principal); F17.290 Nicotine dependence, other tobacco product, uncomplicated; Z91.011 Allergy to milk products
CPT/HCPCS: A4606; Z7610

== ENCOUNTER 2017-06-12 19:11 | Emergency (ER) | payer MEDICARE, OTHER ==
[~2017-06-12] VITALS: Ht 172.7 cm; Wt 64.9 kg
--- NOTE | 2017-06-12 19:15 | NUR ---
PT BIB RA WITH A C/O ETOH. PT APPEARS TO BE SLEEPING SOUNDLY. COLOSTOMY BAG IN PLACE. PT IS ON THE MONITOR AND CONTINUOUS PULSE OX. RESP EVEN AND UNLABORED. VSS.
--- NOTE | 2017-06-12 21:32 | NUR ---
PT APPEARS TO SLEEPING SOUNDLY WITH NO S/S OF PAIN OR DISTRESS.
--- NOTE | 2017-06-12 23:04 | NUR ---
PT APPEARS TO BE SLEEPING COMFORTABLY WITH NO S/S OF PAIN OR DISTRESS.
--- NOTE | 2017-06-13 01:00 | NUR ---
PT LEFT WITHOUT DISCHARGE PAPERWORK. Patient discharged to home in stable condition. Patient verbalizes understanding of instruction. PT AMBULATED OUT WITH A STEADY GAIT.
[2017-06-13 01:24] VITALS: BP 113/82
== END 2017-06-13 01:00 | disposition home or self-care (01) ==
LOC: ER 19:12
DX: F10.10 Alcohol abuse, uncomplicated (principal); Z93.3 Colostomy status; F17.200 Nicotine dependence, unspecified, uncomplicated; Z91.011 Allergy to milk products
CPT/HCPCS: 82962; 99283; A4606; Z7610

== ENCOUNTER 2017-06-13 13:24 | Emergency (ER) | payer MEDICARE, OTHER ==
[~2017-06-13] VITALS: Ht 165.1 cm; Wt 65.8 kg
[2017-06-13 13:25] VITALS: BP 143/75
== END 2017-06-13 15:06 | disposition left against medical advice (07) ==
LOC: ER 13:27
DX: F10.129 Alcohol abuse with intoxication, unspecified (principal); Z43.3 Encounter for attention to colostomy; Z91.011 Allergy to milk products; F17.210 Nicotine dependence, cigarettes, uncomplicated
CPT/HCPCS: A4606; Z7610

== ENCOUNTER 2017-06-14 05:01 | Emergency (ER) | payer MEDICARE, OTHER ==
[~2017-06-14] VITALS: Ht 167.6 cm; Wt 60.8 kg
--- NOTE | 2017-06-14 07:10 | NUR ---
Received patient in bed. asleep arousable to call of name. alert oriented goes back to sleep.
[2017-06-14 12:02] VITALS: BP 130/72
--- NOTE | 2017-06-14 12:02 | NUR ---
Patient discharged to home in stable condition. Written and verbal after care instructions given. Patient verbalizes understanding of instruction. Ambulatory in steady gait. Alert oriented .
== END 2017-06-14 12:05 | disposition home or self-care (01) ==
LOC: ER 05:04
DX: F10.129 Alcohol abuse with intoxication, unspecified (principal); F17.200 Nicotine dependence, unspecified, uncomplicated; Z93.3 Colostomy status; Z91.011 Allergy to milk products
CPT/HCPCS: A4606; Z7610

== ENCOUNTER 2017-06-15 21:39 | Emergency (ER) | payer MEDICARE, OTHER ==
[~2017-06-15] VITALS: Ht 167.6 cm; Wt 63.5 kg
[2017-06-15 21:47] VITALS: BP 132/88
== END 2017-06-15 22:27 | disposition left against medical advice (07) ==
LOC: ER 21:43
DX: Z93.3 Colostomy status (principal); F10.10 Alcohol abuse, uncomplicated; F17.200 Nicotine dependence, unspecified, uncomplicated; Z91.011 Allergy to milk products
CPT/HCPCS: A4606; Z7610

== ENCOUNTER 2017-06-22 15:49 | Emergency (ER) | payer MEDICARE, OTHER ==
[~2017-06-22] VITALS: Ht 162.6 cm; Wt 63.5 kg
[2017-06-22 16:06] VITALS: BP 134/77
--- NOTE | 2017-06-22 16:23 | NUR ---
PT PROVIDED WITH SHOWER, SOCKS, AND COLOSTOMY BAG
== END 2017-06-22 17:36 | disposition home or self-care (01) ==
LOC: ER 16:37
DX: Z43.5 Encounter for attention to cystostomy (principal); F10.10 Alcohol abuse, uncomplicated; Z91.011 Allergy to milk products; F17.200 Nicotine dependence, unspecified, uncomplicated
CPT/HCPCS: 99284; A4606; Z7610

== ENCOUNTER 2017-06-23 22:02 | Emergency (ER) | payer MEDICARE, OTHER ==
[~2017-06-23] VITALS: Ht 170.2 cm; Wt 62.6 kg
--- NOTE | 2017-06-23 22:15 | NUR ---
CA HAKAN FROM [facility] FOR COLOSTOMY BAG. PT AOX3 RR EVEN AND UNLABORED. NO SOB NOTED. NAD NOTED. NO NVD AT THIS TIME. PT GOWNED AND PLACED ON MONITOR WAITING FOR MD SALEH.
--- NOTE | 2017-06-23 23:00 | NUR ---
PT PROVIDED WITH NEW COLOSTOMY BAG.
--- NOTE | 2017-06-24 02:35 | NUR ---
PT REMOVED BP CUFF AND PULSE OX. RISK AND BENEFITS EXPLAINED X3. PT STRONGLY REFUSED AT THIS TIME.
--- NOTE | 2017-06-24 05:48 | NUR ---
Patient discharged to home in stable condition. Written and verbal after care instructions given. Patient verbalizes understanding of instruction. ambulatory with a steady gait.
[2017-06-24 05:49] VITALS: BP 114/78
== END 2017-06-24 05:50 | disposition home or self-care (01) ==
LOC: ER 22:06
DX: Z43.3 Encounter for attention to colostomy (principal); F17.200 Nicotine dependence, unspecified, uncomplicated; F10.10 Alcohol abuse, uncomplicated; Z59.0 Homelessness; Z91.011 Allergy to milk products
CPT/HCPCS: A4606; Z7610

== ENCOUNTER 2017-06-24 17:44 | Emergency (ER) | payer MEDICARE, OTHER ==
[~2017-06-24] VITALS: Ht 162.6 cm; Wt 61.2 kg
[2017-06-24 17:49] VITALS: BP 149/74
== END 2017-06-24 18:36 | disposition home or self-care (01) ==
LOC: ER 17:45
DX: Z00.8 Encounter for other general examination (principal); Z93.3 Colostomy status; F10.10 Alcohol abuse, uncomplicated; F17.200 Nicotine dependence, unspecified, uncomplicated; Z98.890 Other specified postprocedural states; Z91.011 Allergy to milk products
CPT/HCPCS: A4606; Z7610

== ENCOUNTER 2017-06-25 03:46 | Emergency (ER) | payer MEDICARE, OTHER ==
[~2017-06-25] VITALS: Ht 160 cm; Wt 56.7 kg
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
--- NOTE | 2017-06-25 05:59 | NUR ---
PT RESTING QUIETLY, AROUSES TO VOICE. VSS. RN TO CONTINUE MONITORING AND PROVIDING SAFETY/COMFORT MEASURES.
--- NOTE | 2017-06-25 07:00 | NUR ---
RECIEVED REPORT FROM DENISE FAY. PT IS SLEEPING IN BED. NAD. RR EVEN AND UNLABORED. WILL CONTINUE TO MONITOR.
--- NOTE | 2017-06-25 07:14 | NUR ---
ENDORSED TO SUMEET BECK FOR SANTANA.
--- NOTE | 2017-06-25 07:21 | NUR ---
Patient is resting comfortably in bed with eyes closed. Easily aroused. VSS
--- NOTE | 2017-06-25 08:35 | NUR ---
FOOD TRAY PROVIDED AT
--- NOTE | 2017-06-25 10:10 | NUR ---
CHANGED THE COLOSTOMY BAG.
--- NOTE | 2017-06-25 10:18 | NUR ---
PATIENT IS THROWING STUFF EVERYWHERE. DR JIANG MADE AWARE.
--- NOTE | 2017-06-25 10:24 | NUR ---
PROVIDED NEW SHIRT AND PANTS.
[2017-06-25 10:25] VITALS: BP 129/68
--- NOTE | 2017-06-25 10:25 | NUR ---
Patient discharged to home in stable condition. Written and verbal after care instructions given. Patient verbalizes understanding of instruction.
== END 2017-06-25 10:32 | disposition home or self-care (01) ==
LOC: ER 03:48
DX: F10.10 Alcohol abuse, uncomplicated (principal); R45.1 Restlessness and agitation; F17.200 Nicotine dependence, unspecified, uncomplicated; Z91.011 Allergy to milk products; Z98.890 Other specified postprocedural states; Z93.3 Colostomy status
CPT/HCPCS: A4606; Z7610

== ENCOUNTER 2017-06-25 19:27 | Emergency (ER) | payer MEDICARE, OTHER ==
--- NOTE | 2017-06-25 19:30 | NUR ---
REFUSED TO BE TRIAGED. STATES "I ONLY WANT A NEW BAG FOR MY STOMA. NOTIFIED
== END 2017-06-25 19:48 | disposition left against medical advice (07) ==
LOC: ER 19:28
DX: Z53.21 Procedure and treatment not carried out due to patient leaving prior to being seen by health care provider (principal)

== ENCOUNTER 2017-06-25 20:38 | Emergency (ER) | payer MEDICARE, OTHER ==
[~2017-06-25] VITALS: Ht 167.6 cm; Wt 56.7 kg
--- NOTE | 2017-06-25 21:14 | NUR ---
PT BIBRA "FOUND LYING DOWN AT [facility]"; NO TRAUMA NOTED. PT AOX3 RR EVEN AND UNLABORED. NAD NOTED. NO NVD AT THIS TIME. PT GOWNED AND PLACED ON MONITOR. PT NOTED WITH COLOSTOMY BAG INTACT.
--- NOTE | 2017-06-25 21:27 | NUR ---
Patient is resting comfortably in bed with eyes closed. Easily aroused.
--- NOTE | 2017-06-25 21:53 | NUR ---
LAB AT BEDSIDE FOR BLOOD DRAW
[2017-06-25 22:36] LABS: CALCIUM, SERUM 8.2 mg/dL (8.5-10.1); CREATININE 0.7 mg/dL (0.6-1.3); POTASSIUM 3.1 mmol/L (3.5-5.1)
[2017-06-25 22:42] LABS: ALBUMIN 3.2 g/dL (3.4-5.0); BILIRUBIN,DIRECT 0.2 mg/dL (0.0-0.2); BILIRUBIN,TOTAL 0.4 mg/dL (0.2-1.0)
[2017-06-25 23:01] LABS: BASOPHILS % (AUTO) 0.7 % (0.0-2.0); EOSINOPHILS % (AUTO) 0.8 % (0.0-6.0); HEMATOCRIT 33 % (33-45); HEMOGLOBIN 11.3 g/dL (11.5-14.8); LYMPHOCYTES # (AUTO) 2.5 /CMM (0.8-4.8); LYMPHOCYTES % (AUTO) 61.4 % (20.0-44.0); MEAN CORPUSCULAR HGB CONC 35 g/dl (31.0-36.0); MEAN CORPUSCULAR VOLUME 94 fL (82-100); MONOCYTES # (AUTO) 0.4 /CMM (0.1-1.30); MONOCYTES % (AUTO) 9.4 % (2.0-12.0); NEUTROPHILS # (AUTO) 1.1 /CMM (1.8-8.9); NEUTROPHILS % (AUTO) 27.7 % (43.0-81.0); PLATELET COUNT (AUTO) 83 /CMM (150-450); RDW COEFFICIENT OF VARIATION 13.6 (11.5-15.0); RED BLOOD CELL COUNT(AUTO) 3.47 MIL/uL (4.0-5.2); WHITE BLOOD COUNT (AUTO) 4.1 K/uL (4.3-11.0)
[2017-06-25 23:59] LABS: BAND % (MANUAL) 1 % (0.0-5.0); LYMPHOCYTES % (MANUAL) 64 % (16-48); MONOCYTES % (MANUAL) 7 % (0-11.0); NEUTROPHILS % (MANUAL) 28 (42-76)
[2017-06-26] MEDS ORDERED: POTASSIUM CHLORIDE 20 MEQ TAB.PRT.SR PO ONE ×2 (01:00→02:18)
--- NOTE | 2017-06-26 02:23 | NUR ---
PT REC'D A NEW COLOSTOMY BAG AND A NEW TOP.
[2017-06-26 02:25] VITALS: BP 137/89
--- NOTE | 2017-06-26 02:25 | NUR ---
Note marilyn in EDM - 06/26/17 at 0250 by NIRMALA Patient discharged to home in stable condition. Written and verbal after care instructions given. Patient verbalizes understanding of instruction. PT AMBULATED OUT WITH A STEADY GAIT. VSS.
--- NOTE | 2017-06-26 02:25 | NUR ---
Patient discharged to home in stable condition. Written and verbal after care instructions given. Patient verbalizes understanding of instruction. VSS. PT SIGNED ALL ACI, BUT REFUSED TO LEAVE. PT RETURNED TO BED #15. DR. PEACOCK NOTIFIED.
--- NOTE | 2017-06-26 02:51 | NUR ---
PT IS DRESSED AND AMBULATING OUT WITH A STEADY GAIT.
== END 2017-06-26 02:26 | disposition home or self-care (01) ==
LOC: ER 20:39
DX: F10.129 Alcohol abuse with intoxication, unspecified (principal); K70.10 Alcoholic hepatitis without ascites; E87.6 Hypokalemia; F17.200 Nicotine dependence, unspecified, uncomplicated; Z93.3 Colostomy status; Z91.011 Allergy to milk products
CPT/HCPCS: 36415; 80048-TC; 80076-TC; 85025-TC; A4606; Z7610

== ENCOUNTER 2017-06-27 14:46 | Emergency (ER) | payer MEDICARE, OTHER ==
[~2017-06-27] VITALS: Ht 160 cm; Wt 59.0 kg
[2017-06-27 15:08] VITALS: BP 145/87
--- NOTE | 2017-06-27 15:40 | NUR ---
Colostomy bag replaced
--- NOTE | 2017-06-27 15:43 | NUR ---
Pt ambulatory with steady gait
--- NOTE | 2017-06-27 15:43 | NUR ---
PT. VERBALIZED UNDERSTANDING OF AFTERCARE INSTRUCTIONS.Patient discharged to home in stable condition. Written and verbal after care instructions given. Patient verbalizes understanding of instruction.
== END 2017-06-27 15:52 | disposition home or self-care (01) ==
LOC: ER 14:47
DX: Z43.3 Encounter for attention to colostomy (principal); F10.129 Alcohol abuse with intoxication, unspecified; F17.200 Nicotine dependence, unspecified, uncomplicated; Z91.011 Allergy to milk products
CPT/HCPCS: A4606; Z7610

== ENCOUNTER 2017-06-27 18:06 | Emergency (ER) | payer MEDICARE, OTHER ==
[~2017-06-27] VITALS: Ht 170.2 cm; Wt 68.0 kg
--- NOTE | 2017-06-27 18:31 | NUR ---
BIB RA, PT WAS FOUND WALKING ON STREET, NAD NOTED, VSS, RESP EVEN AND UNLABORED, PT WAS PUT ON MONITOR, WAITING FOR MD SALEH.
[2017-06-27 21:28] VITALS: BP 127/79
--- NOTE | 2017-06-27 21:30 | NUR ---
Patient discharged to home in stable condition. Written and verbal after care instructions given. Patient verbalizes understanding of instruction.
== END 2017-06-27 21:29 | disposition home or self-care (01) ==
LOC: ER 18:08
DX: F10.129 Alcohol abuse with intoxication, unspecified (principal); R41.82 Altered mental status, unspecified; Z93.3 Colostomy status; Z91.011 Allergy to milk products; F17.200 Nicotine dependence, unspecified, uncomplicated
CPT/HCPCS: 99283; A4606; Z7610

== ENCOUNTER 2017-07-16 13:55 | Emergency (ER) | payer MEDICARE, OTHER ==
[~2017-07-16] VITALS: Ht 162.6 cm; Wt 59.4 kg
--- NOTE | 2017-07-16 13:55 | NUR ---
[id number] FROM [employer],FOUND ALTERED AND LYING IN THE FLOOR BY STAFF. NARCAN 4 GIVEN BY EMS W LITTLE RESPONSE. [id number]. PATIENT ALTERED AT THIS TIME, BUT RESPONDING VERBALLY. BREATHING EVEN AND UNLABORED. NOSE TRUMPET IN PLACE MATERIAL ASSISTANT. NO DISTRESS NOTED, SAFETY AND COMFORT MEASURES IN PLACE. AWAITING MD ORDERS.
[2017-07-16 14:20] LABS: BASOPHILS # (AUTO) 0.1 /CMM (0.0-0.2); BASOPHILS % (AUTO) 0.9 % (0.0-2.0); EOSINOPHILS % (AUTO) 1.2 % (0.0-6.0); HEMATOCRIT 39 % (33-45); HEMOGLOBIN 13.4 g/dL (11.5-14.8); LYMPHOCYTES # (AUTO) 5.6 /CMM (0.8-4.8); LYMPHOCYTES % (AUTO) 74.5 % (20.0-44.0); MEAN CORPUSCULAR HGB CONC 34 g/dl (31.0-36.0); MEAN CORPUSCULAR VOLUME 94 fL (82-100); MONOCYTES # (AUTO) 0.6 /CMM (0.1-1.30); NEUTROPHILS # (AUTO) 1.1 /CMM (1.8-8.9); NEUTROPHILS % (AUTO) 15.4 % (43.0-81.0); PLATELET COUNT (AUTO) 190 /CMM (150-450); RDW COEFFICIENT OF VARIATION 11.7 (11.5-15.0); RED BLOOD CELL COUNT(AUTO) 4.21 MIL/uL (4.0-5.2); WHITE BLOOD COUNT (AUTO) 7.5 K/uL (4.3-11.0)
--- NOTE | 2017-07-16 14:25 | NUR ---
PATIENT TAKEN TO CT VIA STRETCHER.
[2017-07-16 14:30] LABS: CALCIUM, SERUM 8.2 mg/dL (8.5-10.1); CREATININE 0.5 mg/dL (0.6-1.3); POTASSIUM 3.3 mmol/L (3.5-5.1)
[2017-07-16 14:36] LABS: ALBUMIN 3.8 g/dL (3.4-5.0); BILIRUBIN,DIRECT 0.2 mg/dL (0.0-0.2); BILIRUBIN,TOTAL 0.5 mg/dL (0.2-1.0); SALICYLATE 0.4 mg/dL (2.8-20.0)
--- NOTE | 2017-07-16 14:40 | NUR ---
PATIENT RETURNED FROM CT IN STABLE CONDITION.
--- NOTE | 2017-07-16 19:59 | NUR ---
PT ASLEEP, EASILY AROUSABLE. NO ACUTE DISTRES SNOTED, RESP EVEN AND UNLABORED. CALL LIGHT WIHTIN REACH. WILL CONTINUE TO MONITOR PT CLOSELY.
--- NOTE | 2017-07-16 22:04 | NUR ---
PT AAOX4 NO ACUTE DISTRESS NOTED, RESP EVEN AND UNLABORED. PT AMBULATORY WITH STEADY GAIT NOTED. Noted pt removed SL. Catheter intact and site benign. Pressure and 4x4 applied to site. No bleeding noted. Pt refuse to wait gfor ACI, pt left the department.
[2017-07-16 22:06] VITALS: BP 121/67
== END 2017-07-16 22:09 | disposition home or self-care (01) ==
LOC: ER 13:57
DX: F10.129 Alcohol abuse with intoxication, unspecified (principal); F17.200 Nicotine dependence, unspecified, uncomplicated; R40.4 Transient alteration of awareness; Z93.3 Colostomy status; Z91.011 Allergy to milk products
CPT/HCPCS: 36415; 70450-TC; 80048-TC; 80076-TC; 85025-TC; A4606; G0480; Z7610

== ENCOUNTER 2017-07-17 18:00 | Emergency (ER) | payer MEDICARE, OTHER ==
[~2017-07-17] VITALS: Ht 162.6 cm; Wt 70.8 kg
[2017-07-17 18:07] VITALS: BP 145/74
--- NOTE | 2017-07-17 19:00 | NUR ---
Patient discharged to home in stable condition. Written and verbal after care instructions given. Patient verbalizes understanding of instruction.
--- NOTE | 2017-07-17 19:01 | NUR ---
steady gait noted; dc back to the street;refused placement
== END 2017-07-17 19:02 | disposition home or self-care (01) ==
LOC: ER 18:03
DX: F10.129 Alcohol abuse with intoxication, unspecified (principal); R41.82 Altered mental status, unspecified; F17.200 Nicotine dependence, unspecified, uncomplicated; Z93.3 Colostomy status; Z91.011 Allergy to milk products
CPT/HCPCS: A4606; Z7610

== ENCOUNTER 2017-07-17 22:33 | Emergency (ER) | payer MEDICARE, OTHER ==
[~2017-07-17] VITALS: Ht 165.1 cm; Wt 59.0 kg
--- NOTE | 2017-07-17 22:40 | NUR ---
AT [facility]
--- NOTE | 2017-07-17 22:55 | NUR ---
NICKING MACHINE OPERATOR AT FOR BLOOD DRAW.
[2017-07-17 23:10] LABS: BASOPHILS # (AUTO) 0.1 /CMM (0.0-0.2); BASOPHILS % (AUTO) 0.8 % (0.0-2.0); EOSINOPHILS % (AUTO) 1.1 % (0.0-6.0); HEMATOCRIT 38 % (33-45); HEMOGLOBIN 13.1 g/dL (11.5-14.8); LYMPHOCYTES # (AUTO) 6.7 /CMM (0.8-4.8); MEAN CORPUSCULAR HGB CONC 35 g/dl (31.0-36.0); MEAN CORPUSCULAR VOLUME 94 fL (82-100); MONOCYTES # (AUTO) 0.8 /CMM (0.1-1.30); NEUTROPHILS # (AUTO) 1.3 /CMM (1.8-8.9); NEUTROPHILS % (AUTO) 14.1 % (43.0-81.0); PLATELET COUNT (AUTO) 200 /CMM (150-450); RDW COEFFICIENT OF VARIATION 11.8 (11.5-15.0); RED BLOOD CELL COUNT(AUTO) 4.03 MIL/uL (4.0-5.2)
--- NOTE | 2017-07-17 23:23 | NUR ---
PT CLEANED AND CHANGED PER MD ORDER. COLOSTOMY BAG CHANGED WELL.
--- NOTE | 2017-07-17 23:24 | NUR ---
PT TAKEN TO CT.
[2017-07-17 23:27] LABS: CALCIUM, SERUM 8.4 mg/dL (8.5-10.1); CREATININE 0.7 mg/dL (0.6-1.3); POTASSIUM 3.5 mmol/L (3.5-5.1)
[2017-07-17 23:36] LABS: ALBUMIN 3.8 g/dL (3.4-5.0); BILIRUBIN,DIRECT 0.1 mg/dL (0.0-0.2); BILIRUBIN,TOTAL 0.3 mg/dL (0.2-1.0); SALICYLATE 1.5 mg/dL (2.8-20.0); TOTAL PROTEIN, SERUM 7.9 g/dL (6.4-8.2)
--- NOTE | 2017-07-18 00:45 | NUR ---
RESTING WITH EYES CLOSED WITH NO S/S OF DISTRESS. RESP EVEN AND UNLABORED. LAYING SUPINE AND ON MONITOR.
--- NOTE | 2017-07-18 01:49 | NUR ---
REMAINS RESTING WITH NO S/S OF DISTRESS. STILL SUPINE AND MONITORED
--- NOTE | 2017-07-18 02:17 | NUR ---
REASSESSED AND IN NO S/S OF ANY DISTRESS. RESP EVEN AND UNLABORED.
--- NOTE | 2017-07-18 03:20 | NUR ---
PT CLEARED OF C SPINE PRECS BY DR. SOLITARIO.
--- NOTE | 2017-07-18 04:12 | NUR ---
REPOSITIONED FOR COMFORT. NO S/S OF DISTRESS NOTED. RESP EVEN AND UNLABORED.
--- NOTE | 2017-07-18 06:05 | NUR ---
AROUSABLE BUT STILL APPEARS SLEEPY.
--- NOTE | 2017-07-18 07:02 | NUR ---
REPORT GIVEN TO DIPTI/RN FOR SANTANA.
--- NOTE | 2017-07-18 07:13 | NUR ---
BREAKFAST TRAY ORDERED FROM [facility]
[2017-07-18 09:40] VITALS: BP 114/68
== END 2017-07-18 09:43 | disposition home or self-care (01) ==
LOC: ER 22:35
DX: F10.229 Alcohol dependence with intoxication, unspecified (principal); F17.200 Nicotine dependence, unspecified, uncomplicated; R40.4 Transient alteration of awareness; Z93.3 Colostomy status; Z91.040 Latex allergy status
CPT/HCPCS: 36415; 70450; 72125; 80048; 80076; 80329; 85025; 93005; 99285; A4606; G0480 ×2; L0172; Z7610

== ENCOUNTER 2017-07-20 21:21 | Emergency (ER) | payer MEDICARE, OTHER ==
[~2017-07-20] VITALS: Ht 170.2 cm; Wt 64.4 kg
[2017-07-20 21:28] VITALS: BP 140/68
== END 2017-07-21 06:36 | disposition home or self-care (01) ==
LOC: ER 21:24
DX: F10.129 Alcohol abuse with intoxication, unspecified (principal); F10.10 Alcohol abuse, uncomplicated; F17.200 Nicotine dependence, unspecified, uncomplicated; R79.89 Other specified abnormal findings of blood chemistry; Z93.3 Colostomy status; Z91.011 Allergy to milk products
CPT/HCPCS: 82962-TC; A4606; Z7610

== ENCOUNTER 2017-07-24 01:02 | Emergency (ER) | payer MEDICARE, OTHER ==
--- NOTE | 2017-07-24 01:05 | NUR ---
REFUSES TO BE TRIAGED OR SEE THE ER DOCTOR. STATES "I ONLY WANT A SANDWICH, JUICE AND A NEW COLOSTOMY BAG". DENIES ANY MEDICAL C/O AT THIS TIME.
== END 2017-07-24 01:34 | disposition left against medical advice (07) ==
LOC: ER 01:03
DX: F10.10 Alcohol abuse, uncomplicated (principal); F17.200 Nicotine dependence, unspecified, uncomplicated; Z93.3 Colostomy status; Z91.011 Allergy to milk products
CPT/HCPCS: A4606; Z7610

== ENCOUNTER 2017-07-24 08:41 | Emergency (ER) | payer MEDICARE, OTHER ==
[~2017-07-24] VITALS: Ht 162.6 cm; Wt 61.2 kg
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
[2017-07-24] MEDS ORDERED: KETOROLAC TROMETHAMINE INJ 60 MG/2 ML VIAL IM ONE (09:30)
[2017-07-24] MEDS ORDERED: KETOROLAC TROMETHAMINE INJ 30 MG/ML VIAL ONE (09:45)
[2017-07-24 10:05] VITALS: BP 122/71
--- NOTE | 2017-07-24 10:05 | NUR ---
Patient discharged to home in stable condition. Written and verbal after care instructions given. Patient verbalizes understanding of instruction.
== END 2017-07-24 10:10 | disposition home or self-care (01) ==
LOC: ER 08:43
DX: S90.32XA Contusion of left foot, initial encounter (principal); S90.31XA Contusion of right foot, initial encounter; F17.200 Nicotine dependence, unspecified, uncomplicated; F10.10 Alcohol abuse, uncomplicated; Z93.3 Colostomy status; V03.90XA Pedestrian on foot injured in collision with car, pick-up truck or van, unspecified whether traffic or nontraffic accident, initial encounter; Y93.89 Activity, other specified; Y92.413 State road as the place of occurrence of the external cause; Y99.8 Other external cause status
CPT/HCPCS: 96372; 99283; A4606; J1885; Z7610

== ENCOUNTER 2017-07-24 15:36 | Emergency (ER) | payer MEDICARE, OTHER ==
[~2017-07-24] VITALS: Ht 167.6 cm; Wt 61.2 kg
--- NOTE | 2017-07-24 19:20 | NUR ---
RECEIVED REPORT FROM SUMEET MOREL FOR SANTANA. PT LAYING IN BED WITH NO S/S OF DISTRESS NOTED. VSS
--- NOTE | 2017-07-24 20:16 | NUR ---
Patient discharged to home in stable condition. Written and verbal after care instructions given. Patient verbalizes understanding of instruction. VSS UPON DISCHARGE. PT AMBULATED WITH STEADY GAIT NOTED.
[2017-07-24 20:18] VITALS: BP 125/86
== END 2017-07-24 20:20 | disposition home or self-care (01) ==
LOC: ER 15:39
DX: F10.129 Alcohol abuse with intoxication, unspecified (principal); F17.200 Nicotine dependence, unspecified, uncomplicated; Z93.3 Colostomy status; Z91.011 Allergy to milk products
CPT/HCPCS: 99283; A4606; Z7610

== ENCOUNTER 2017-07-26 14:32 | Emergency (ER) | payer MEDICARE, OTHER ==
[~2017-07-26] VITALS: Ht 165.1 cm; Wt 65.8 kg
[2017-07-26 14:37] VITALS: BP 131/75
== END 2017-07-26 18:27 | disposition home or self-care (01) ==
LOC: ER 14:33
DX: F10.129 Alcohol abuse with intoxication, unspecified (principal); F17.200 Nicotine dependence, unspecified, uncomplicated; Z59.0 Homelessness; Z93.3 Colostomy status; Z91.011 Allergy to milk products
CPT/HCPCS: 99284; A4606; Z7610

== ENCOUNTER 2017-07-27 00:07 | Emergency (ER) | payer MEDICARE, OTHER ==
[~2017-07-27] VITALS: Ht 165.1 cm; Wt 65.8 kg
--- NOTE | 2017-07-27 00:25 | NUR ---
NO S/S OF ACUTE DISTRESS NOTED. PT SAFETY AND COMFORT MEASURES IN PLACE. PT PLACED ON JEWELRY SALES AND POX. PT SAFETY AND COMFORT MEASURES IN PLACE. MD BEDSIDE FOR EVAL. WILL CONTINUE TO MONITOR PT. PT NOTED TO BE AAOX3.
--- NOTE | 2017-07-27 01:55 | NUR ---
Patient is resting comfortably in bed with eyes closed. Easily aroused. VSS
--- NOTE | 2017-07-27 06:31 | NUR ---
Patient discharged to home in stable condition. Written and verbal after care instructions given. Patient verbalizes understanding of instruction. Ambulatory with a steady gait
[2017-07-27 06:32] VITALS: BP 122/70
== END 2017-07-27 06:33 | disposition home or self-care (01) ==
LOC: ER 00:10
DX: F10.129 Alcohol abuse with intoxication, unspecified (principal); R79.89 Other specified abnormal findings of blood chemistry; Z93.3 Colostomy status; Z91.011 Allergy to milk products
CPT/HCPCS: 82962-TC; A4606; Z7610

== ENCOUNTER 2017-07-27 10:18 | Emergency (ER) | payer MEDICARE, OTHER ==
[~2017-07-27] VITALS: Ht 165.1 cm; Wt 65.8 kg
[2017-07-27 10:18] VITALS: BP 139/80
--- NOTE | 2017-07-27 11:15 | NUR ---
COLOSTOMY BAG PROVIDED. COLOSTOMY BAG HOLE CUT TO FIT STOMA.
== END 2017-07-27 11:22 | disposition home or self-care (01) ==
LOC: ER 10:19
DX: Z59.0 Homelessness (principal); Z53.21 Procedure and treatment not carried out due to patient leaving prior to being seen by health care provider
CPT/HCPCS: A4606; Z7610

== ENCOUNTER 2017-07-28 23:27 | Emergency (ER) | payer MEDICARE, OTHER ==
[~2017-07-28] VITALS: Ht 170.2 cm; Wt 61.2 kg
--- NOTE | 2017-07-28 23:40 | NUR ---
PT FOUND AT [facility] [address], ETOH INTOXICATION, AOX3 NON COMPLIANT VS STABLE , AFEBRILE, LABS ORDERED
--- NOTE | 2017-07-29 00:07 | NUR ---
Patient eloped from facility. ER MD notified.
[2017-07-29 00:10] VITALS: BP 110/70
== END 2017-07-29 00:11 | disposition left against medical advice (07) ==
LOC: ER 23:33
DX: F10.10 Alcohol abuse, uncomplicated (principal); F17.200 Nicotine dependence, unspecified, uncomplicated; Z59.0 Homelessness; Z53.20 Procedure and treatment not carried out because of patient's decision for unspecified reasons; Z93.3 Colostomy status; Z91.011 Allergy to milk products; Z79.899 Other long term (current) drug therapy
CPT/HCPCS: 36415; A4606; G0480; Z7610

== ENCOUNTER 2017-07-29 17:49 | Emergency (ER) | payer MEDICARE, OTHER ==
[~2017-07-29] VITALS: Ht 160 cm; Wt 63.0 kg
--- NOTE | 2017-07-29 17:54 | NUR ---
DR FLORENCE AT BS FOR EVAL.
--- NOTE | 2017-07-29 17:56 | NUR ---
BIBRA FOUND INSIDE [facility] C/O ETOH, NO TRAUMA REPORTED. SKIN IS WARM AND DRY. RR IS EVEN AND UNLABORED WITH NAD NOTED. PLACED ON THE MONITOR. TE=274OH/DL. WILL CONTINUOUSLY MONITOR THE PATIENT.
--- NOTE | 2017-07-29 18:05 | NUR ---
REPLACED THE COLOSTOMY BAG.
--- NOTE | 2017-07-29 19:02 | NUR ---
REPORT GIVEN TO SUMEET BARBER FOR SANTANA.
--- NOTE | 2017-07-29 19:10 | NUR ---
PT APPEARS TO BE SLEEPING SOUNDLY WITH 2L O2 VIA NC ON. PT'S O2 SAT IS 100%. NO S/S OF PAIN OR DISTRESS.
--- NOTE | 2017-07-29 21:44 | NUR ---
PT APPEARS TO BE SLEEPING SOUNDLY WITH NO S/S OF PAIN OR DISTRESS.
--- NOTE | 2017-07-29 22:41 | NUR ---
Patient is resting comfortably in bed with eyes closed. Easily aroused. VSS
--- NOTE | 2017-07-29 23:02 | NUR ---
PT WOKE UP AND REQUESTED WATER. PT REC'D ICE WATER AND WARM BLANKETS. PT APPEARS TO BE RESTING COMFORTABLY.
--- NOTE | 2017-07-29 23:45 | NUR ---
PT AMBULATED TO THE BATHROOM AND URINATED ON HERSELF AND THE FLOOR. PT AMBULATED BACK TO BED.
--- NOTE | 2017-07-30 00:03 | NUR ---
PT APPEARS TO BE SLEEPING SOUNDLY WITH NO S/S OF PAIN OR DISTRESS.
--- NOTE | 2017-07-30 05:17 | NUR ---
PT WOKE UP AND WAS READY TO LEAVE. PT REC'D A PAIR OF PANTS, A SANDWICH, WATER, AND 2 COLOSTOMY BAGS. PT REC'D GRIPPER SOCKS. Patient discharged to home in stable condition. Written and verbal after care instructions given. Patient verbalizes understanding of instruction. PT AMBULATED OUT WITH A STEADY GAIT. VSS.
[2017-07-30 05:21] VITALS: BP 111/68
== END 2017-07-30 05:23 | disposition home or self-care (01) ==
LOC: ER 17:50
DX: F10.129 Alcohol abuse with intoxication, unspecified (principal); F17.200 Nicotine dependence, unspecified, uncomplicated; F10.10 Alcohol abuse, uncomplicated; Z98.890 Other specified postprocedural states; Z91.011 Allergy to milk products; Z93.3 Colostomy status
CPT/HCPCS: A4606; Z7610

== ENCOUNTER 2017-07-30 19:07 | Emergency (ER) | payer MEDICARE, OTHER ==
[~2017-07-30] VITALS: Ht 167.6 cm; Wt 59.9 kg
--- NOTE | 2017-07-30 19:45 | NUR ---
ASSUMED CARE OF PT AT THIS TIME. HERE FOR "ALCOHOL INTOXICATION". NO S/S OF TRAUMA NOTED. RESPONDS TO VOICE. PLACED ON MONITOR. RESP EVEN AND UNLABORED. WILL CONTINUE TO MONITOR PT.
--- NOTE | 2017-07-30 21:58 | NUR ---
REASSESSED AND IN NO DISTRESS AT THIS TIME. RESP EVEN AND UNLABORED. STILL MONITORED CLOSELY.
--- NOTE | 2017-07-30 22:24 | NUR ---
RESTING WITH NO S/S OF DISTRESS. RESP EVEN AND UNLABORED. ON O2 AT 2L/MIN BNC AND ON MONITOR.
--- NOTE | 2017-07-30 23:18 | NUR ---
STILL RESPONDS TO VOICE. GOES TO BACK TO SLEEP. NO S/S OF DISTRESS NOTED.
--- NOTE | 2017-07-31 00:55 | NUR ---
LYING SUPINE AT THIS TIME. NO S/S OF DISTRESS NOTED. RESP EVEN AND UNLABORED AND STILL MONITORED.
--- NOTE | 2017-07-31 01:53 | NUR ---
REMAINS RESTING WITH EYES CLOSED; SLOWLY AROUSABLE. RESP EVEN AND UNLABORED.
--- NOTE | 2017-07-31 03:13 | NUR ---
LYING RT SIDE AT THIS TIME WITH NO S/S OF DISTRESS. RESP EVEN AND UNLABORED.
--- NOTE | 2017-07-31 04:15 | NUR ---
REPOSITIONED FOR COMFORT. STILL ON OXYGEN AND PLACED BACK ON MONITOR AFTER LEADS NOTED OFF.
--- NOTE | 2017-07-31 05:15 | NUR ---
AWAKE WALKING AROUND IN DIFFERENT PT ROOMS SCREAMING "HELP ME AND CLEAN THIS SHIT OFF ME". CLEANED AND GIVEN 2 COLOSTOMY BAGS.
[2017-07-31 05:17] VITALS: BP 115/68
== END 2017-07-31 05:40 | disposition home or self-care (01) ==
LOC: ER 19:09
DX: F10.129 Alcohol abuse with intoxication, unspecified (principal); F17.200 Nicotine dependence, unspecified, uncomplicated; Z93.3 Colostomy status; Z91.011 Allergy to milk products
CPT/HCPCS: 99283; A4606; J7030; Z7610

== ENCOUNTER 2017-07-31 15:32 | Emergency (ER) | payer MEDICARE, OTHER ==
[~2017-07-31] VITALS: Ht 162.6 cm; Wt 63.0 kg
--- NOTE | 2017-07-31 15:43 | NUR ---
BBRA[address] FROM [address] STREET FOR ETOH INTOXICATION. VSS. NEG ACUTE DISTRESS. WILL CONTINUE TO MONITOR. SAFETY MEASURES IN PLACE. CALL LIGHT WITHIN REACH.
--- NOTE | 2017-07-31 17:25 | NUR ---
PT RESTING COMFORTABLY IN BED. NAD NOTED. WILL CONTINUE TO MONITOR.
--- NOTE | 2017-07-31 19:10 | NUR ---
ENDORSED PT TO HOV RN. PT STABLE CONDITION
[2017-08-01 05:46] VITALS: BP 119/70
== END 2017-08-01 05:46 | disposition home or self-care (01) ==
LOC: ER 15:33
DX: F10.229 Alcohol dependence with intoxication, unspecified (principal); F17.200 Nicotine dependence, unspecified, uncomplicated; Z91.011 Allergy to milk products; Z93.3 Colostomy status
CPT/HCPCS: 82962-TC; A4606; Z7610

== ENCOUNTER 2017-08-01 20:25 | Emergency (ER) | payer MEDICARE, OTHER ==
[~2017-08-01] VITALS: Ht 170.2 cm; Wt 70.8 kg
[2017-08-01 20:25] VITALS: BP 135/68
--- NOTE | 2017-08-01 20:35 | NUR ---
EPatient eloped from facility. AMELIE MERRITT notified.
== END 2017-08-01 20:37 | disposition left against medical advice (07) ==
LOC: ER 20:30
DX: Z53.21 Procedure and treatment not carried out due to patient leaving prior to being seen by health care provider (principal); F10.129 Alcohol abuse with intoxication, unspecified
CPT/HCPCS: A4606; Z7610

== ENCOUNTER 2017-08-02 08:28 | Emergency (ER) | payer MEDICARE, OTHER ==
[~2017-08-02] VITALS: Ht 162.6 cm; Wt 65.8 kg
[2017-08-02 08:34] VITALS: BP 119/70
== END 2017-08-02 13:13 | disposition home or self-care (01) ==
LOC: ER 08:30
DX: F10.129 Alcohol abuse with intoxication, unspecified (principal); F17.200 Nicotine dependence, unspecified, uncomplicated; Z98.890 Other specified postprocedural states; Z93.3 Colostomy status; Z91.011 Allergy to milk products
CPT/HCPCS: A4606; Z7610

== ENCOUNTER 2017-08-03 14:42 | Emergency (ER) | payer MEDICARE, OTHER ==
[~2017-08-03] VITALS: Ht 165.1 cm; Wt 54.4 kg
[2017-08-03 14:42] VITALS: BP 122/75
--- NOTE | 2017-08-03 14:58 | NUR ---
aaox3, bibra from the street c/o etoh. rr is even and unlabored with nad noted. spo2=92% on RA. placed on NC at 2L/min now spo2=97%. Placed on the monitor. Awaiting MD for eval.
== END 2017-08-03 15:39 | disposition left against medical advice (07) ==
LOC: ER 14:45
DX: F10.129 Alcohol abuse with intoxication, unspecified (principal); R79.89 Other specified abnormal findings of blood chemistry; F17.200 Nicotine dependence, unspecified, uncomplicated; Z93.3 Colostomy status; Z91.011 Allergy to milk products
CPT/HCPCS: 82962-TC; A4606; Z7610

== ENCOUNTER 2017-08-04 21:47 | Emergency (ER) | payer MEDICARE, OTHER ==
[~2017-08-04] VITALS: Ht 165.1 cm; Wt 61.2 kg
[2017-08-04 23:05] LABS: BILIRUBIN,DIRECT 0.1 mg/dL (0.0-0.2); BILIRUBIN,TOTAL 0.4 mg/dL (0.2-1.0); CALCIUM, SERUM 7.7 mg/dL (8.5-10.1); CREATININE 0.5 mg/dL (0.6-1.3); TOTAL PROTEIN, SERUM 7.5 g/dL (6.4-8.2)
[2017-08-04 23:13] LABS: SALICYLATE 0.3 mg/dL (2.8-20.0)
[2017-08-04 23:15] LABS: POTASSIUM 4.1 mmol/L (3.5-5.1)
[2017-08-04 23:30] LABS: ALBUMIN 3.3 g/dL (3.4-5.0)
[2017-08-04 23:39] LABS: BASOPHILS % (AUTO) 0.6 % (0.0-2.0); EOSINOPHILS % (AUTO) 0.8 % (0.0-6.0); HEMATOCRIT 39 % (33-45); HEMOGLOBIN 13.1 g/dL (11.5-14.8); LYMPHOCYTES # (AUTO) 5.1 /CMM (0.8-4.8); LYMPHOCYTES % (AUTO) 75.2 % (20.0-44.0); MEAN CORPUSCULAR HGB CONC 34 g/dl (31.0-36.0); MEAN CORPUSCULAR VOLUME 98 fL (82-100); MONOCYTES # (AUTO) 0.6 /CMM (0.1-1.30); MONOCYTES % (AUTO) 8.4 % (2.0-12.0); PLATELET COUNT (AUTO) 102 /CMM (150-450); RDW COEFFICIENT OF VARIATION 13.8 (11.5-15.0); WHITE BLOOD COUNT (AUTO) 6.8 K/uL (4.3-11.0)
[2017-08-05 05:05] LABS: TROPONIN I < 0.017 ng/mL (0.00-0.056)
[2017-08-05 05:10] LABS: B-TYPE NATRIURETIC PEPTIDE 138 PG/ML (0-125)
--- NOTE | 2017-08-05 08:42 | NUR ---
COLOSTOMY CARE PERFORMED, PT ENCOURAGED TO PARTICIPATE IN CARE ACTIVITY PT PROVIDED WITH CLOTHING AND SOCKS
--- NOTE | 2017-08-05 08:43 | NUR ---
PT. VERBALIZED UNDERSTANDING OF AFTERCARE INSTRUCTIONS.Patient discharged to STREET in stable condition. Written and verbal after care instructions given. Patient verbalizes understanding of instruction. Pt declines placement into homeless retirement or resources
[2017-08-05 08:51] VITALS: BP 121/68
== END 2017-08-05 08:54 | disposition home or self-care (01) ==
LOC: ER 21:49
DX: F10.129 Alcohol abuse with intoxication, unspecified (principal); F17.200 Nicotine dependence, unspecified, uncomplicated; Z93.3 Colostomy status; Z91.011 Allergy to milk products; R09.02 Hypoxemia; R41.82 Altered mental status, unspecified
CPT/HCPCS: 36415; 70450-TC; 71045-TC; 72125-TC; 80048-TC; 80076-TC; 82140-TC; 83880; 84484-TC; 85025-TC; A4606; G0480; Z7610

== ENCOUNTER 2017-08-05 16:52 | Emergency (ER) | payer MEDICARE, OTHER ==
[~2017-08-05] VITALS: Ht 162.6 cm; Wt 65.8 kg
--- NOTE | 2017-08-05 18:03 | NUR ---
Pt provided with colostomy care and new pants
--- NOTE | 2017-08-05 18:05 | NUR ---
(pt. ambulatory with a steady gait. PT. VERBALIZED UNDERSTANDING OF AFTERCARE INSTRUCTIONS.Patient discharged to street in stable condition. Written and verbal after care instructions given. Patient verbalizes understanding of instruction.
[2017-08-05 18:08] VITALS: BP 139/85
== END 2017-08-05 18:11 | disposition home or self-care (01) ==
LOC: ER 17:02
DX: F10.10 Alcohol abuse, uncomplicated (principal); F17.200 Nicotine dependence, unspecified, uncomplicated; Z93.3 Colostomy status; Z91.011 Allergy to milk products; Z98.890 Other specified postprocedural states
CPT/HCPCS: 99283; A4606; Z7610

== ENCOUNTER 2017-08-07 23:46 | Emergency (ER) | payer MEDICARE, OTHER ==
[~2017-08-07] VITALS: Ht 162.6 cm; Wt 59.0 kg
--- NOTE | 2017-08-08 00:05 | NUR ---
ASSUMED CARE OF PT AT THIS TIME. HERE FOR "ALCOHOL INTOXICATION". PT HEARD YELLING FOR WATER. GIVEN WATER REQUESTED. PLACED ON MONITOR. AAO X4. DENIES ANY SX'S AT THIS TIME. RESP EVEN AND UNLABORED. WILL CONTINUE TO MONITOR.
--- NOTE | 2017-08-08 01:12 | NUR ---
RESTING SUPINE WITH NO S/S OF DISTRESS. ERSP EVEN AND UNLABORED. STILL MONITORED.
--- NOTE | 2017-08-08 03:15 | NUR ---
REMAINS RESTING WITH NO S/S OF DISTRESS. LYING RT SIDE AT THIS TIME AND STILL ON MONITOR. RESP EVEN AND UNALBORED.
--- NOTE | 2017-08-08 04:27 | NUR ---
APPEARS RESTING COMFORTABLY WITH EYES CLOSED BUT SLOWLY AROUSABLE AND WITHOUT ANY S/S OF DISTRESS. RESP EVEN AND UNLABORED.
--- NOTE | 2017-08-08 05:32 | NUR ---
ATTEMPTED TO AWAKE PT BUT STILL APPEARS SLEEPY. PLACED BACK ON MONITOR AND WILL F/U. RESP EVEN AND UNLABORED.
--- NOTE | 2017-08-08 06:03 | NUR ---
LYING LT SIDE AT THIS TIME DELA CRUZ WELL. WILL REASSESS LATER.
--- NOTE | 2017-08-08 07:10 | NUR ---
Patient is resting comfortably in bed with eyes closed. Easily aroused. VSS
--- NOTE | 2017-08-08 07:10 | NUR ---
REPORT GIVEN TO VIVEK/CHG NURSE.
[2017-08-08 10:45] VITALS: BP 113/68
== END 2017-08-08 10:46 | disposition home or self-care (01) ==
LOC: ER 23:49
DX: F10.129 Alcohol abuse with intoxication, unspecified (principal); F17.200 Nicotine dependence, unspecified, uncomplicated; Z90.49 Acquired absence of other specified parts of digestive tract; Z91.011 Allergy to milk products
CPT/HCPCS: 82962; 99283; A4606; Z7610

== ENCOUNTER 2017-08-08 17:19 | Emergency (ER) | payer MEDICARE, OTHER ==
[~2017-08-08] VITALS: Ht 160 cm; Wt 56.7 kg
--- NOTE | 2017-08-08 17:20 | NUR ---
bibra 878 c/o chronic back pain, no recent fall or injury. Etoh intoxication, breathing even and unlabored. no sob, nad, vitals stable. safety and comfort measures in place. awaiting md orders.
[2017-08-08] MEDS ORDERED: IBUPROFEN 400 MG TABLET PO ONE (18:00)
[2017-08-08] MEDS ORDERED: IBUPROFEN 400 MG TABLET ONE (18:07)
--- NOTE | 2017-08-08 22:05 | NUR ---
ASSUMED CARE OF PT AT THIS TIME FROM PRIMARY NURSE ALISHA. PT RESTING WITH EYES CLOSED SNORING. PLACED ON MONITOR. RESP EVEN AND UNLABORED. NO S/S OF TRAUMA NOTED AT THIS TIME. WILL CONTINUE TO MONITOR PT.
--- NOTE | 2017-08-08 22:09 | NUR ---
FOOD STILL AT BEDSIDE. PT STATES "AM STILL SLEEPY AND WILL EAT LATER".
--- NOTE | 2017-08-08 23:57 | NUR ---
REPOSITIONED FOR COMFORT. NO S/S OF DISTRESS NOTED. RESP EVEN AND UNLABORED.
--- NOTE | 2017-08-09 01:18 | NUR ---
HEARD YELLING "HELP". GIVEN ICE WATER REQUESTED. DENIES ANY OTHER SX'S AT THIS TIME.
--- NOTE | 2017-08-09 02:55 | NUR ---
NO CHANGES FROM PREVIOUS ASSESSMENT. RESP EVEN AND UNLABORED.
--- NOTE | 2017-08-09 04:34 | NUR ---
AWAKE UPON ARRIVAL TO ROOM. DENIES ANY NEW OR WORSENING SX'S AT THIS TIME. STATES "GIVEN ME 30 MORE MINUTES AND I WILL BE OUT OF HERE". INFORMED OK.
[2017-08-09 05:11] VITALS: BP 126/72
--- NOTE | 2017-08-09 05:12 | NUR ---
Patient discharged to home in stable condition. Written and verbal after care instructions given. Patient verbalizes understanding of instruction. Ambulatory with a steady gait. Colostomy bag provided and a set of new clothes.
== END 2017-08-09 05:14 | disposition home or self-care (01) ==
LOC: ER 17:21
DX: F10.129 Alcohol abuse with intoxication, unspecified (principal); F17.200 Nicotine dependence, unspecified, uncomplicated; R52 Pain, unspecified; Z91.011 Allergy to milk products; Z90.49 Acquired absence of other specified parts of digestive tract; Y08.89XA Assault by other specified means, initial encounter; Y93.89 Activity, other specified; Y92.89 Other specified places as the place of occurrence of the external cause; Y99.8 Other external cause status
CPT/HCPCS: A4606; Z7610

== ENCOUNTER 2017-08-09 14:40 | Emergency (ER) | payer MEDICARE, OTHER ==
[~2017-08-09] VITALS: Ht 167.6 cm; Wt 61.2 kg
[2017-08-10 05:20] VITALS: BP 145/75
--- NOTE | 2017-08-10 05:21 | NUR ---
Patient discharged to home in stable condition. Written and verbal after care instructions given. Patient verbalizes understanding of instruction. PT ambulatory with a steady gait VITAL SIGNS WITHIN NORMAL LIMITS.
== END 2017-08-10 05:21 | disposition home or self-care (01) ==
LOC: ER 14:43
DX: G93.40 Encephalopathy, unspecified (principal); F10.10 Alcohol abuse, uncomplicated; Z93.3 Colostomy status; Z91.011 Allergy to milk products; F17.200 Nicotine dependence, unspecified, uncomplicated; Y90.9 Presence of alcohol in blood, level not specified
CPT/HCPCS: A4606; Z7610

== ENCOUNTER 2017-08-13 04:09 | Emergency (ER) | payer MEDICARE, OTHER ==
[~2017-08-13] VITALS: Ht 167.6 cm; Wt 65.8 kg
--- NOTE | 2017-08-13 04:20 | NUR ---
BIB [facility]. PT UNCOOPERATIVE. SMELLS OF ETOH. NEG ACUTE DISTRESS. VSS. STABLE CONDITION. SAFETY MEASURES IN PLACE.
--- NOTE | 2017-08-13 05:01 | NUR ---
ACCUCHECK 128, DR. PEACOCK MADE AWARE
--- NOTE | 2017-08-13 06:13 | NUR ---
CALLED [facility] 82; [phone]. LEFT, WAITING FOR CALL BACK.
--- NOTE | 2017-08-13 07:54 | NUR ---
PT REC'D BREAKFAST TRAY. PT APPEARS TO BE SLEEPING SOUNDLY. WILL LEAVE TRAY AT BEDSIDE FOR PT.
--- NOTE | 2017-08-13 09:04 | NUR ---
CALLED [facility] 82; [phone]. NOTIFIED THAT MARCELO IS IN OUR ED. INSTRUCTED TO CALL BACK @ 1100AM AND SPEAK TO LUKE GARCIA (ASSIGNED TO CHRISTIANOSydnie'S CASE).
--- NOTE | 2017-08-13 09:34 | NUR ---
PT. VERBALIZED UNDERSTANDING OF AFTERCARE INSTRUCTIONS.Patient discharged to street in stable condition. Written and verbal after care instructions given. Patient verbalizes understanding of instruction.
[2017-08-13 09:35] VITALS: BP 121/67
== END 2017-08-13 09:36 | disposition home or self-care (01) ==
LOC: ER 04:11
DX: F10.129 Alcohol abuse with intoxication, unspecified (principal); R79.89 Other specified abnormal findings of blood chemistry; F17.200 Nicotine dependence, unspecified, uncomplicated; Z93.3 Colostomy status; Z98.890 Other specified postprocedural states; Z91.011 Allergy to milk products; Y90.9 Presence of alcohol in blood, level not specified
CPT/HCPCS: 82962; 99283; A4606; Z7610

== ENCOUNTER 2018-01-13 12:17 | Emergency (ER) | payer MEDICARE, OTHER ==
[2018-01-13 12:40] VITALS: BP 112/65
--- NOTE | 2018-01-13 12:40 | NUR ---
ASSUME PT CARE. HAKAN FROM THE STREETS. HERE FOR ETOH W/ MULTIPLE ER VISITS FOR THE SAME REASON. PLACED ON MONITOR. STABLE VITALS. AWAITING MD SALEH.
== END 2018-01-13 13:44 | disposition left against medical advice (07) ==
LOC: ER 12:24
DX: F10.229 Alcohol dependence with intoxication, unspecified (principal); K50.90 Crohn's disease, unspecified, without complications; F17.200 Nicotine dependence, unspecified, uncomplicated; Y90.9 Presence of alcohol in blood, level not specified; Z93.3 Colostomy status; Z88.0 Allergy status to penicillin; Z88.2 Allergy status to sulfonamides; Z91.011 Allergy to milk products; Z59.0 Homelessness

== ENCOUNTER 2018-01-13 18:34 | Emergency (ER) | payer MEDICARE, OTHER ==
[~2018-01-13] VITALS: Ht 165.1 cm; Wt 56.7 kg
--- NOTE | 2018-01-13 20:00 | NUR ---
PT BIBRA ADMITTED FOR INTOXICATION, FOUND ON STREET ALTERED. VSS, RESP EVEN NON LABORED. WILL CONTINUE TO MONITOR
--- NOTE | 2018-01-14 02:03 | NUR ---
ASSUMED CARE OF PT AT THIS TIME ON BEHALF OF PRIMARY NURSE CHRISTIANO. PT AROUSABLE UPON NAME CALLING. DENIES ANY S/S OF DISTRESS AT THIS TIME. NON DIAPHOERTIC. RESP EVEN AND UNLABORED. LYING SUPINE. ON MONITOR. RESP EVEN AND UNLABORED. WILL CONTINUE TO MONITOR.
--- NOTE | 2018-01-14 03:16 | NUR ---
HEARD SCREAMIMG "HELP". WHEN APPROACHED PT'S EYES CLOSED. WOKE PT UP BUT STATES "AM OK".
--- NOTE | 2018-01-14 04:17 | NUR ---
AMBULATED TO RESTROOM WITH STEADY GAIT TO CLEAN UP HERSELF.
--- NOTE | 2018-01-14 05:41 | NUR ---
Patient discharged to home in stable condition. Written and verbal after care instructions given. Patient verbalizes understanding of instruction. Given clothes and shoes and sandwichjuice. Denies any medical/si c/o at this time.
[2018-01-14 05:42] VITALS: BP 112/64
== END 2018-01-14 05:43 | disposition home or self-care (01) ==
LOC: ER 18:36
DX: F10.229 Alcohol dependence with intoxication, unspecified (principal); K50.90 Crohn's disease, unspecified, without complications; F17.200 Nicotine dependence, unspecified, uncomplicated; Y90.9 Presence of alcohol in blood, level not specified; Z93.3 Colostomy status; Z88.0 Allergy status to penicillin; Z88.2 Allergy status to sulfonamides; Z91.011 Allergy to milk products; Z59.0 Homelessness
CPT/HCPCS: A4606; Z7610

== ENCOUNTER 2018-01-14 09:37 | Emergency (ER) | payer MEDICARE, OTHER ==
[~2018-01-14] VITALS: Ht 162.6 cm; Wt 56.7 kg
--- NOTE | 2018-01-14 10:43 | NUR ---
57 Y/O FEMALE PLACED IN BED 15 C/O EXCESS ALCOHOL CONSUMPTION.
[2018-01-14 10:57] VITALS: BP 116/74
--- NOTE | 2018-01-14 12:33 | NUR ---
PT RESTING COMFORTABLY WITH NO S/S OF DISTRESS.
--- NOTE | 2018-01-14 13:50 | NUR ---
SINDY received a call from Bronwyn in ED stating that pt. Karol is back in the ED and the doctor would like SINDY to see the pt. SINDY met with the pt. bedside. SINDY is very familiar with the pt. Pt. was recently admitted on 01/09 to [facility] and was scheduled to be discharged to [facility], however declined and decided to be discharged back to the streets. commercial finance manager Cindy was assisting pt. with the discharge plan when pt. was admitted. Pt. was lying down on the bed with her eyes closed. SINDY attempted to wake pt up. Pt. responded by saying, " go away, I don't want to talk right now." SINDY attempted again, however pt. refused to speak with the SW. SINDY informed Bronwyn and ED DANIE Cruz regarding pt. refusing to speak with the SW. SINDY to consult with social food service counter clerk Jessica Armenta.
[2018-01-14 14:01] LABS: BASOPHILS % (AUTO) 0.4 % (0.0-2.0); EOSINOPHILS % (AUTO) 0.1 % (0.0-6.0); HEMATOCRIT 45 % (33-45); HEMOGLOBIN 15.1 g/dL (11.5-14.8); LYMPHOCYTES # (AUTO) 3.5 /CMM (0.8-4.8); LYMPHOCYTES % (AUTO) 53.5 % (20.0-44.0); MEAN CORPUSCULAR HGB CONC 34 g/dl (31.0-36.0); MEAN CORPUSCULAR VOLUME 92 fL (82-100); MONOCYTES # (AUTO) 0.6 /CMM (0.1-1.30); MONOCYTES % (AUTO) 9.1 % (2.0-12.0); NEUTROPHILS # (AUTO) 2.4 /CMM (1.8-8.9); NEUTROPHILS % (AUTO) 36.9 % (43.0-81.0); PLATELET COUNT (AUTO) 134 /CMM (150-450); RED BLOOD CELL COUNT(AUTO) 4.86 MIL/uL (4.0-5.2); WHITE BLOOD COUNT (AUTO) 6.6 K/uL (4.3-11.0)
[2018-01-14 14:17] LABS: ALBUMIN 3.6 g/dL (3.4-5.0); BILIRUBIN,DIRECT 0.3 mg/dL (0.0-0.2); BILIRUBIN,TOTAL 0.3 mg/dL (0.2-1.0); TOTAL PROTEIN, SERUM 8.4 g/dL (6.4-8.2)
[2018-01-14 14:25] LABS: CALCIUM, SERUM 8.7 mg/dL (8.5-10.1); CREATININE 0.5 mg/dL (0.6-1.3); POTASSIUM 3.5 mmol/L (3.5-5.1)
--- NOTE | 2018-01-14 15:38 | NUR ---
ARRANGING PLACEMENT FOR PT IN A CUSTODIAL.
--- NOTE | 2018-01-14 15:45 | NUR ---
SINDY met with pt. again bedside with Bronwyn to discuss if she would be interested to going to a usp facility. Pt. stated, she will go and said, " It's better than being in the hospital." SINDY contacted mattress spring encaser Wanda who informed SINDY she will call [facility] and confirm that pt. can go to their facility. research manager Wanda contacted [phone] and spoke to [facility] who confirmed they will accept the pt. ER to arrange transportation to the facility. SINDY updated Social service center assistant Jessica Armenta and [facility] regarding pt's discharge plan.
--- NOTE | 2018-01-14 15:45 | NUR ---
PT TO BE TRANSFERRED [facility]. DR. NAVARRO ADMITTING PHYSICIAN. PT GOING TO THIS FACILITY FOR REHAB. ATTEMPTING TOBTAIN AMBULANCE TRANSPORT.
--- NOTE | 2018-01-14 15:47 | NUR ---
NUMBER TO CALL REPORT IS [phone].
--- NOTE | 2018-01-14 15:49 | NUR ---
CORRECTION: PT TO GO TO [facility] IN [place].
--- NOTE | 2018-01-14 16:01 | NUR ---
PT MELODY. NO NEED TO OBTAIN AN AMBULANCE.
--- NOTE | 2018-01-14 16:11 | NUR ---
SINDY contacted ER to see if pt. had left. SINDY was informed by Bronwyn that pt. eloped from the emergency exit in the back in ER.
== END 2018-01-14 16:05 | disposition left against medical advice (07) ==
LOC: ER 09:38
DX: F10.129 Alcohol abuse with intoxication, unspecified (principal); K50.90 Crohn's disease, unspecified, without complications; F17.200 Nicotine dependence, unspecified, uncomplicated; Y90.7 Blood alcohol level of 200-239 mg/100 ml; Z93.3 Colostomy status; Z90.49 Acquired absence of other specified parts of digestive tract; Z88.0 Allergy status to penicillin; Z88.2 Allergy status to sulfonamides; Z91.011 Allergy to milk products; Z59.0 Homelessness
CPT/HCPCS: 36415; 80048-TC; 80076-TC; 85025-TC; A4606; G0480; Z7610

== ENCOUNTER 2018-01-28 21:23 | Emergency (ER) | payer MEDICARE, OTHER ==
[~2018-01-28] VITALS: Ht 165.1 cm; Wt 54.4 kg
[2018-01-28 21:30] VITALS: BP 146/96
--- NOTE | 2018-01-28 21:35 | NUR ---
FOUND LOITERING AT [facility], STATED "I'VE ONLY HAD ONE BEER TODAY, I NEED MORE OR I WILL ". PT COVERED IN FECES, HAS COLOSTOMY BAG. AOX3, VSS, RESPIRATIONS EVEN AND UNLABORED. NO ACUTE DISTRESS NOTED. READY FOR EVAL.
--- NOTE | 2018-01-28 22:07 | NUR ---
PT GIVEN SANDWICH
[2018-01-28 22:09] LABS: BASOPHILS % (AUTO) 0.8 % (0.0-2.0); EOSINOPHILS % (AUTO) 0.6 % (0.0-6.0); HEMATOCRIT 36 % (33-45); HEMOGLOBIN 12.2 g/dL (11.5-14.8); LYMPHOCYTES # (AUTO) 3.6 /CMM (0.8-4.8); LYMPHOCYTES % (AUTO) 60.7 % (20.0-44.0); MEAN CORPUSCULAR HGB CONC 34 g/dl (31.0-36.0); MEAN CORPUSCULAR VOLUME 91 fL (82-100); MONOCYTES # (AUTO) 0.5 /CMM (0.1-1.30); MONOCYTES % (AUTO) 8.4 % (2.0-12.0); NEUTROPHILS # (AUTO) 1.7 /CMM (1.8-8.9); NEUTROPHILS % (AUTO) 29.5 % (43.0-81.0); PLATELET COUNT (AUTO) 180 /CMM (150-450); RED BLOOD CELL COUNT(AUTO) 3.92 MIL/uL (4.0-5.2); WHITE BLOOD COUNT (AUTO) 5.9 K/uL (4.3-11.0)
[2018-01-28 22:20] LABS: CALCIUM, SERUM 8.2 mg/dL (8.5-10.1); CARBON DIOXIDE 28 mmol/L (21-32); CHLORIDE 102 mmol/L (98-107); CREATININE 0.5 mg/dL (0.6-1.3); GLUCOSE 106 mg/dL (74-106); POTASSIUM 3.2 mmol/L (3.5-5.1); SODIUM SERUM 138 mmol/L (136-145); UREA NITROGEN, BLOOD 18 mg/dL (7-18)
[2018-01-28 22:26] LABS: ALANINE AMINOTRANSFERASE 91 U/L (12-78); ALBUMIN 3.3 g/dL (3.4-5.0); ALCOHOL, BLOOD 249 mg/dL (0-0); ALKALINE PHOSPHATASE 190 U/L (46-116); ASPARTATE AMINOTRANSFERASE 137 U/L (15-37); BILIRUBIN,DIRECT 0.1 mg/dL (0.0-0.2); BILIRUBIN,TOTAL 0.2 mg/dL (0.2-1.0); TOTAL PROTEIN, SERUM 7.2 g/dL (6.4-8.2)
[2018-01-28 22:31] LABS: ACETAMINOPHEN < 0 ug/ml (10-30); SALICYLATE 0.5 mg/dL (2.8-20.0)
--- NOTE | 2018-01-28 22:50 | NUR ---
PT PROVIDED WITH CLEAN CLOTHES
--- NOTE | 2018-01-28 23:14 | NUR ---
ALCON OLIVER. AWARE.
== END 2018-01-28 23:19 | disposition left against medical advice (07) ==
LOC: ER 21:30
DX: F10.129 Alcohol abuse with intoxication, unspecified (principal); E87.6 Hypokalemia; E83.42 Hypomagnesemia; K50.90 Crohn's disease, unspecified, without complications; F32.9 Major depressive disorder, single episode, unspecified; F17.200 Nicotine dependence, unspecified, uncomplicated; Y90.8 Blood alcohol level of 240 mg/100 ml or more; Z59.0 Homelessness; Z93.3 Colostomy status; Z88.0 Allergy status to penicillin; Z88.2 Allergy status to sulfonamides; Z91.011 Allergy to milk products; Z90.49 Acquired absence of other specified parts of digestive tract; Z86.19 Personal history of other infectious and parasitic diseases
CPT/HCPCS: 36415; 80048; 80076; 80329; 83735; 85025; 99283; A4606; G0480 ×2; Z7610

== ENCOUNTER 2018-01-29 02:28 | Emergency (ER) | payer MEDICARE, OTHER ==
[~2018-01-29] VITALS: Ht 165.1 cm; Wt 54.4 kg
--- NOTE | 2018-01-29 02:31 | NUR ---
pt bibra fr [facility], bystander called 911, pt was seen lying on street in front of [employer], was seen here in ER earlier last night for ETOH. pt requesting food and colostomy bag to be changed. pt resp even & unlabored, colostomy bag leaking brown liquid stool all over pt pants, llq abd stoma beefy red. Dr. Cabrera at bedside for further eval.
--- NOTE | 2018-01-29 02:48 | NUR ---
pt given sandwich and juice. pt sitting up in bed eating w/ no aspiration of food noted.
--- NOTE | 2018-01-29 02:57 | NUR ---
Pt asleep on lt side w/ resp even & unlabored, nad noted. side rails up w/ bed low to ground for safety.
--- NOTE | 2018-01-29 03:33 | NUR ---
pt cleaned w/ soap and water, perineal care provided, linens changed, colostomy bag changed, pt kept clean & dry.
--- NOTE | 2018-01-29 04:19 | NUR ---
pt continues to sleep in bed w/ resp even & unlabored, nad noted. bed low to ground w/ side rails up. Will continue to monitor.
[2018-01-29 06:34] VITALS: BP 140/86
--- NOTE | 2018-01-29 06:34 | NUR ---
pt ambulatory w/ steady gait, resp even & unlabored w/ nad noted. Patient discharged to home in stable condition. Written and verbal after care instructions given. Patient verbalizes understanding of instruction.
== END 2018-01-29 06:35 | disposition home or self-care (01) ==
LOC: ER 02:29
DX: Z76.5 Malingerer [conscious simulation] (principal); F10.129 Alcohol abuse with intoxication, unspecified; F17.200 Nicotine dependence, unspecified, uncomplicated; Y90.9 Presence of alcohol in blood, level not specified; Z93.3 Colostomy status; Z86.19 Personal history of other infectious and parasitic diseases; Z98.890 Other specified postprocedural states; Z88.0 Allergy status to penicillin; Z88.2 Allergy status to sulfonamides; Z91.011 Allergy to milk products
CPT/HCPCS: 99283; A4606; Z7610

== ENCOUNTER 2018-02-05 12:42 | Emergency (ER) | payer MEDICARE, OTHER ==
[~2018-02-05] VITALS: Ht 165.1 cm; Wt 57.2 kg
[2018-02-05 12:42] VITALS: BP 106/64
--- NOTE | 2018-02-05 13:08 | NUR ---
PT BIB RA FOR ETOH INTOX. PT SMELLS OF ETOH AND ADMITS TO DRINKING TODAY. PT CALM, COOPERATIVE, A/OX2 AT THIS TIME. NO ACUTE COMPLAINTS. RESP EVEN UNLABORED. IN ER BED 15.
[2018-02-05 13:35] LABS: BASOPHILS % (AUTO) 0.4 % (0.0-2.0); EOSINOPHILS % (AUTO) 0.9 % (0.0-6.0); HEMATOCRIT 37 % (33-45); HEMOGLOBIN 12.4 g/dL (11.5-14.8); LYMPHOCYTES # (AUTO) 3.2 /CMM (0.8-4.8); LYMPHOCYTES % (AUTO) 59.4 % (20.0-44.0); MEAN CORPUSCULAR HGB CONC 34 g/dl (31.0-36.0); MEAN CORPUSCULAR VOLUME 93 fL (82-100); MONOCYTES # (AUTO) 0.6 /CMM (0.1-1.30); MONOCYTES % (AUTO) 10.2 % (2.0-12.0); NEUTROPHILS # (AUTO) 1.6 /CMM (1.8-8.9); NEUTROPHILS % (AUTO) 29.1 % (43.0-81.0); PLATELET COUNT (AUTO) 100 /CMM (150-450); RED BLOOD CELL COUNT(AUTO) 3.96 MIL/uL (4.0-5.2); WHITE BLOOD COUNT (AUTO) 5.4 K/uL (4.3-11.0)
--- NOTE | 2018-02-05 13:44 | NUR ---
PT NOW A/OX3, DENIES COMPLAINTS. ALL NEEDS ATTENDED TO. Addendum: 02/05/18 at 1355 by HFOX AMBULATED TO RESTROOM WITH STEADY GAIT.
[2018-02-05 13:46] LABS: CALCIUM, SERUM 7.8 mg/dL (8.5-10.1); CARBON DIOXIDE 25 mmol/L (21-32); CHLORIDE 102 mmol/L (98-107); CREATININE 0.6 mg/dL (0.6-1.3); GLUCOSE 107 mg/dL (74-106); POTASSIUM 3.2 mmol/L (3.5-5.1); SODIUM SERUM 140 mmol/L (136-145); UREA NITROGEN, BLOOD 10 mg/dL (7-18)
--- NOTE | 2018-02-05 13:52 | NUR ---
PT ELOPED FROM FACILITY AT THIS TIME. CRISSY EASON NOTIFIED.
[2018-02-05 13:53] LABS: ALANINE AMINOTRANSFERASE 155 U/L (12-78); ALBUMIN 3.2 g/dL (3.4-5.0); ALCOHOL, BLOOD 324 mg/dL (0-0); ALKALINE PHOSPHATASE 127 U/L (46-116); ASPARTATE AMINOTRANSFERASE 221 U/L (15-37); BILIRUBIN,DIRECT 0.1 mg/dL (0.0-0.2); BILIRUBIN,TOTAL 0.3 mg/dL (0.2-1.0); SALICYLATE 0.4 mg/dL (2.8-20.0); TOTAL PROTEIN, SERUM 6.8 g/dL (6.4-8.2)
[2018-02-05 13:54] LABS: ACETAMINOPHEN 0 ug/ml (10-30)
[2018-02-05 14:07] LABS: BAND % (MANUAL) 2 % (0.0-5.0); EOSINOPHILS % (MANUAL) 1 % (0-4); LYMPHOCYTES % (MANUAL) 57 % (16-48); MONOCYTES % (MANUAL) 6 % (0-11.0); NEUTROPHILS % (MANUAL) 31 (42-76); REACTIVE LYMPHOCYTES 3 % (0-0)
== END 2018-02-05 13:58 | disposition left against medical advice (07) ==
LOC: ER 12:44
DX: S00.81XA Abrasion of other part of head, initial encounter (principal); F10.129 Alcohol abuse with intoxication, unspecified; K50.90 Crohn's disease, unspecified, without complications; F17.200 Nicotine dependence, unspecified, uncomplicated; Y90.8 Blood alcohol level of 240 mg/100 ml or more; Z86.19 Personal history of other infectious and parasitic diseases; Z90.49 Acquired absence of other specified parts of digestive tract; Z93.3 Colostomy status; Z88.0 Allergy status to penicillin; Z88.2 Allergy status to sulfonamides; Z91.011 Allergy to milk products; W18.39XA Other fall on same level, initial encounter; Y93.89 Activity, other specified; Y92.89 Other specified places as the place of occurrence of the external cause; Y99.8 Other external cause status
CPT/HCPCS: 36415; 80048; 80076; 80329; 84484; 85025; 99283; A4606; G0480 ×2; Z7610

== ENCOUNTER 2018-02-05 21:02 | Emergency (ER) | payer MEDICARE, OTHER ==
[~2018-02-05] VITALS: Ht 170.2 cm; Wt 59.0 kg
--- NOTE | 2018-02-06 04:00 | NUR ---
PATIENT IN ER NOTED SCREAMING FOR COLOSTOMY BAG WITH FECAL MATERIAL ON HER ABDOMEN. COLOSTOMY CARE DONE, CLEAN PATIENT AND KEPT ON BED COMFORTABLE. PATIENT NOTED UNDER THE INFLUENCE OF ALCOHOL.
--- NOTE | 2018-02-06 05:00 | NUR ---
PATIENT COMPLAINT OF THIRST. ASSISTED TO DRINK WATER. KEPT ON BED COMFORTABLY. WILL CONTINUE TO MONITOR ACCORDINGLY.
[2018-02-06 05:25] VITALS: BP 121/73
--- NOTE | 2018-02-06 05:25 | NUR ---
PATIENT IN STABLE CONDITION. DISCHARGE TO HOME, AMBULATORY. WALKED HERSELF OFF THE HOSPITAL. ALL BELONGINGS ACCOUNTED FOR AND COMPLETE. PATIENT LEFT THE UNIT [id number].
== END 2018-02-06 05:25 | disposition home or self-care (01) ==
LOC: ER 21:03
DX: S00.81XA Abrasion of other part of head, initial encounter (principal); F10.129 Alcohol abuse with intoxication, unspecified; F19.10 Other psychoactive substance abuse, uncomplicated; K50.90 Crohn's disease, unspecified, without complications; F17.200 Nicotine dependence, unspecified, uncomplicated; G89.29 Other chronic pain; Y90.9 Presence of alcohol in blood, level not specified; Z88.0 Allergy status to penicillin; Z88.2 Allergy status to sulfonamides; Z91.011 Allergy to milk products; Z86.19 Personal history of other infectious and parasitic diseases; Z59.0 Homelessness; Z90.49 Acquired absence of other specified parts of digestive tract; X58.XXXA Exposure to other specified factors, initial encounter; Y93.89 Activity, other specified; Y92.89 Other specified places as the place of occurrence of the external cause; Y99.8 Other external cause status
CPT/HCPCS: A4606; Z7610

== ENCOUNTER 2018-02-20 00:02 | Emergency (ER) | payer MEDICARE, OTHER ==
[~2018-02-20] VITALS: Ht 170.2 cm; Wt 59.0 kg
[2018-02-20 00:09] VITALS: BP 156/96
--- NOTE | 2018-02-20 01:42 | NUR ---
AAO X4. AMBULATED TO NURSES' STATION AND STATED "COME I HAVE A SANDWICH AND THEN I CAN GO HOME". PT GIVEN SANDWICH AND JUICE.
== END 2018-02-20 01:45 | disposition home or self-care (01) ==
LOC: ER 00:05
DX: F10.129 Alcohol abuse with intoxication, unspecified (principal); F17.200 Nicotine dependence, unspecified, uncomplicated; K50.90 Crohn's disease, unspecified, without complications; Y90.9 Presence of alcohol in blood, level not specified; Z90.49 Acquired absence of other specified parts of digestive tract; Z88.0 Allergy status to penicillin; Z88.2 Allergy status to sulfonamides; Z86.19 Personal history of other infectious and parasitic diseases; Z93.3 Colostomy status; Z91.011 Allergy to milk products

== ENCOUNTER 2018-02-20 12:34 | Emergency (ER) | payer MEDICARE, OTHER ==
[~2018-02-20] VITALS: Ht 162.6 cm; Wt 61.2 kg
--- NOTE | 2018-02-20 12:52 | NUR ---
[id number], FOUND ON THE STREET POSSIBLE ETOH, OPENS EYES. PT IS AOX3, AMBULATORY, VSS, RR EVEN AND UNLABORED. SKIN WARM TO TOUCH, DRY, INTACT. NO ACUTE DISTRESS NOTED. READY FOR EVAL.
--- NOTE | 2018-02-20 14:03 | NUR ---
Patient is resting comfortably in bed with eyes closed. Easily aroused. VSS
--- NOTE | 2018-02-20 14:47 | NUR ---
SHIRA, STRIP TANK TENDER AT BEDSIDE TO DISCUSS SENIOR CARE OPTIONS AND REHABILITATION
--- NOTE | 2018-02-20 15:21 | NUR ---
Social service consult requested by Dr. Cabrera for homelessness. Pt. is a 57 year old female who was admitted to [facility] for ETOH. SINDY is familiar with pt. from multiple ER visits. SINDY alongside SUMEET Finley met with pt. bedside. Pt. was lying down with her eyes closed. Pt. is alert and oriented x 3. Pt. appears disheveled and unkempt. Pt's speech is somewhat slurred at times. SINDY offered pt. the [facility] placement and pt. agreed to go. Since pt. has a colostomy bag, SINDY called [facility] to confirm if they accept homeless patients with colostomy bag. SINDY spoke to Buster at the [facility] who informed SW that as long as pt. is ambulatory and able to independently change her colostomy bag, they can accept the pt. SINDY informed pt. she will arrange for a taxi to transport pt. to the strip picker location for [facility]. cloth mercerizing supervisor location is at [address] [place] [address] and strip picker times are every 30 minutes starting from 5:15PM to 8:15PM as the last strip picker time. Pt. agreed. SINDY also encouraged pt. to go to an alcohol treatment program. Pt. declined stating she is an " alcoholic." SINDY informed pt. she will leave her a list of referral and resources to [facility] program, Homeless Access resources, food resources, mental health clinics and Community health clinics. Pt. informed SINDY, " I just want to sleep right now." SINDY updated pt's SUMEET Finley and Dr. Cabrera with pt's discharge plan. SINDY left the above resources along with Homeless Patient Waiver Form and informed pt's SUMEET Finley to give to pt. upon discharge and to have pt. sign the Homeless Patient Waiver Form. SINDY contacted Nursing commercial instructor supervisor Howard and requested a taxi voucher for the pt. to assist in getting to the senior care strip picker location. SINDY confirmed with SUMEET Finley that pt, is ambulatory and able to change colostomy bag independently. No other social service needs are requested at this time. SW is available, if needed.
--- NOTE | 2018-02-20 16:02 | NUR ---
Patient is resting comfortably in bed with eyes closed. Easily aroused. VSS
--- NOTE | 2018-02-20 17:02 | NUR ---
Patient discharged to [facility] in stable condition. Written and verbal after care instructions given. Patient verbalizes understanding of instruction.
[2018-02-20 17:07] VITALS: BP 134/76
== END 2018-02-20 17:07 | disposition home or self-care (01) ==
LOC: ER 12:38
DX: F10.129 Alcohol abuse with intoxication, unspecified (principal); F17.200 Nicotine dependence, unspecified, uncomplicated; Z93.3 Colostomy status; Z98.890 Other specified postprocedural states; Z86.19 Personal history of other infectious and parasitic diseases; Z88.0 Allergy status to penicillin; Z88.2 Allergy status to sulfonamides; Z91.011 Allergy to milk products; Y90.9 Presence of alcohol in blood, level not specified
CPT/HCPCS: 99283; A4606

== ENCOUNTER 2018-02-24 13:30 | Emergency (ER) | payer MEDICARE, OTHER ==
[~2018-02-24] VITALS: Ht 167.6 cm; Wt 54.4 kg
--- NOTE | 2018-02-24 13:35 | NUR ---
BIB SELF W C/O PAIN COLOSTOMY SITE X 3 DAYS -ADMITS BEING DRINKING SINCE THIS MORNING, HOMELESS AND RAN OUT OF COLOSTOMY BAG SUPPLIES. TO ER BED 11. VSS, AWAITING MD SALEH
--- NOTE | 2018-02-24 14:00 | NUR ---
JENARO DUMONTT AT BEDSIDE
--- NOTE | 2018-02-24 14:15 | NUR ---
COLOSTOMY CARE DONE.
--- NOTE | 2018-02-24 15:00 | NUR ---
PROVIDED W CLEAN CLOTHES. Patient discharged to home in stable condition. Written and verbal after care instructions given. Patient verbalizes understanding of instruction.
[2018-02-24 15:28] VITALS: BP 126/64
[2018-08-09] MEDS ORDERED: LEVO750T21 PO (12:17)
[2018-08-09] MEDS ORDERED: SUCR1TAB PO (12:17)
[2018-08-09] MEDS ORDERED: PANT40TA2 PO (12:17)
== END 2018-02-24 15:29 | disposition home or self-care (01) ==
LOC: ER 13:34
DX: Z43.3 Encounter for attention to colostomy (principal); K50.90 Crohn's disease, unspecified, without complications; F10.10 Alcohol abuse, uncomplicated; Y90.9 Presence of alcohol in blood, level not specified; Z86.19 Personal history of other infectious and parasitic diseases; Z88.0 Allergy status to penicillin; Z88.2 Allergy status to sulfonamides; Z91.011 Allergy to milk products
CPT/HCPCS: A6403

== ENCOUNTER 2018-03-10 00:37 | Emergency (ER) | payer MEDICARE, OTHER ==
[~2018-03-10] VITALS: Ht 167.6 cm; Wt 66.2 kg
--- NOTE | 2018-03-10 00:55 | NUR ---
PT [id number] FROM [address] FOR ETOH. PER RA, PT WAS FOUND IN [facility] AND WAS AGGRESSIVE WITH RA ON ARRIVAL. PT RESPONSIVE WITH PAINFUL STIMULI. VITAL SIGNS STABLE. RESPIRATIONS EVEN AND UNLABORED. NO ACUTE DISTRESS NOTED. WILL CONTINUE TO MONITOR.
--- NOTE | 2018-03-10 03:39 | NUR ---
PT RESTING COMFORTABLY IN BED. VITAL SIGNS STABLE. WILL CONTINUE TO MONITOR
--- NOTE | 2018-03-10 05:15 | NUR ---
PT RESTING COMFORTABLY IN BED. VITAL SIGNS STABLE. NO ACUTE DISTRESS NOTED. PT STILL ON MONITOR, WILL CONTINUE TO MONITOR
--- NOTE | 2018-03-10 07:53 | NUR ---
Patient discharged to home in stable condition. Written and verbal after care instructions given. Patient verbalizes understanding of instruction.
== END 2018-03-10 07:55 | disposition home or self-care (01) ==
LOC: ER 00:45
DX: F10.129 Alcohol abuse with intoxication, unspecified (principal); K50.90 Crohn's disease, unspecified, without complications; Y90.9 Presence of alcohol in blood, level not specified; Z93.3 Colostomy status; Z86.19 Personal history of other infectious and parasitic diseases; Z88.0 Allergy status to penicillin; Z88.2 Allergy status to sulfonamides; Z91.011 Allergy to milk products

== ENCOUNTER 2018-03-10 16:52 | Emergency (ER) | payer MEDICARE, OTHER ==
[~2018-03-10] VITALS: Ht 162.6 cm; Wt 68.0 kg
[2018-03-11 06:45] VITALS: BP 126/73
--- NOTE | 2018-03-11 07:05 | NUR ---
ENDORSED TO ONCOMING SHIFT SUMEET VELASCO. PT STABLE CONDITION. VSS.NAD.
--- NOTE | 2018-03-11 07:14 | NUR ---
received report from Kiran FAY for pipe. Patient is sleeping in no apparent distress noted.
--- NOTE | 2018-03-11 11:45 | NUR ---
Pt is ambulatory with steady gait and did not wait for, social work consult, referrals, or discharge paperwork. Pt quickly eloped from the ED prior to physican reevaluation and Dr. Gonzalez was notified.
== END 2018-03-11 11:45 | disposition left against medical advice (07) ==
LOC: ER 16:57
DX: F10.129 Alcohol abuse with intoxication, unspecified (principal); Z93.3 Colostomy status; Z87.19 Personal history of other diseases of the digestive system; Z88.0 Allergy status to penicillin; Z88.2 Allergy status to sulfonamides; Z91.011 Allergy to milk products; Y90.9 Presence of alcohol in blood, level not specified

== ENCOUNTER 2018-03-13 16:03 | Emergency (ER) | payer MEDICARE, OTHER ==
[~2018-03-13] VITALS: Ht 162.6 cm; Wt 68.0 kg
[2018-03-13 17:25] VITALS: BP 99/59
--- NOTE | 2018-03-13 17:27 | NUR ---
[id number] FROM A BUS STOP PASSED OUT BESIDES A BOTTLE OF VODKA. BREATHING EVENLY AND UNLABORED. CONNECTED TO THE MONITOR AND PULSE OX. KEPT COMFORTABLE. WILL CONTINUE TO MONITOR ACCORDINGLY.
--- NOTE | 2018-03-13 21:22 | NUR ---
PT WANTED TO LEAVE, PT DDNT WANT TO SIGN DISCHAGE, PT ELOPED, PT LEFT IN STABLE CONDITION, AAOX4, RESPIRATIONS EVEN AND UNLABORED, NO SOB, NAD NOTED, AMBULATORY WITH STEADY GAIT. MADE AWARE
== END 2018-03-13 21:25 | disposition home or self-care (01) ==
LOC: ER 16:04
DX: F10.129 Alcohol abuse with intoxication, unspecified (principal); K50.90 Crohn's disease, unspecified, without complications; Y90.9 Presence of alcohol in blood, level not specified; Z93.3 Colostomy status; Z86.19 Personal history of other infectious and parasitic diseases; Z88.0 Allergy status to penicillin; Z88.2 Allergy status to sulfonamides; Z91.011 Allergy to milk products
CPT/HCPCS: 82962-TC

== ENCOUNTER 2018-03-14 13:49 | Emergency (ER) | payer MEDICARE, OTHER ==
[~2018-03-14] VITALS: Ht 162.6 cm; Wt 61.2 kg
--- NOTE | 2018-03-14 13:51 | NUR ---
PT BIBRA C/O ALCOHOL INTOXICATION, PT IS AGITATED, SCREAMING, BELIGERENT, PT IS AAOX3, NOT IN RESPIRATORY DISTRESS, KEPT RESTED AND COMFORTABLE.
--- NOTE | 2018-03-14 14:25 | NUR ---
SEEN AND EXAMINED BY DR. ISLAS
--- NOTE | 2018-03-14 15:01 | NUR ---
SHIRA CALLAHAN AT BEDSIDE FOR EVAL. PT IS SLEEPING EASY AROUSED BUT AGITATED AND BELIGERENT TO SHIRA CALLAHAN.
--- NOTE | 2018-03-14 15:03 | NUR ---
Social Service Consult for Homelessness: Pt is a 57 y-o female who is familiar to the ER with most recent ER visit on 03/13/18. Patient is intoxicated. Patient is alert and oriented x2. SW attempted to speak with patient; however, pt was verbally abusive, shouting profanities at SW stating, "Leave me alone!" SW to follow-up with pt when pt is more oriented.
--- NOTE | 2018-03-14 18:13 | NUR ---
PT IS EASILY ARAOUSABLE, PT STILL AGITATED.
--- NOTE | 2018-03-14 19:22 | NUR ---
REPORT GIVEN TO SUMEET ALVARADO FOR SANTANA.
--- NOTE | 2018-03-14 20:30 | NUR ---
PT AWAKE ALERT WALKING AROUND, SEEMS UPSET AND AGITATED, WANTS TO LEAVE, PT IS WALKING OUT AND WILL ELOPE
[2018-03-14 22:19] VITALS: BP 136/73
== END 2018-03-14 22:25 | disposition home or self-care (01) ==
LOC: ER 13:51
DX: F10.129 Alcohol abuse with intoxication, unspecified (principal); K50.90 Crohn's disease, unspecified, without complications; Y90.9 Presence of alcohol in blood, level not specified; Z93.3 Colostomy status; Z86.19 Personal history of other infectious and parasitic diseases; Z88.0 Allergy status to penicillin; Z88.2 Allergy status to sulfonamides; Z91.011 Allergy to milk products; Z76.5 Malingerer [conscious simulation]

== ENCOUNTER 2018-03-15 16:27 | Emergency (ER) | payer MEDICARE, OTHER ==
[~2018-03-15] VITALS: Ht 162.6 cm; Wt 56.7 kg
[2018-03-15 16:27] VITALS: BP 151/83
[2018-03-15] MEDS ORDERED: DIAZEPAM 5 MG TABLET ONE (17:26)
[2018-03-15] MEDS ORDERED: DIAZEPAM 5 MG TABLET PO ONE (17:30)
== END 2018-03-15 17:35 ==
LOC: ER 16:30
DX: F10.129 Alcohol abuse with intoxication, unspecified (principal); K50.90 Crohn's disease, unspecified, without complications; R56.9 Unspecified convulsions; Y90.9 Presence of alcohol in blood, level not specified; Z93.3 Colostomy status; Z86.19 Personal history of other infectious and parasitic diseases; Z88.0 Allergy status to penicillin; Z88.2 Allergy status to sulfonamides; Z91.011 Allergy to milk products
CPT/HCPCS: 99283; A4606; Z7610

== ENCOUNTER 2018-08-05 21:18 | Inpatient (IN) | payer MEDICARE, OTHER ==
[~2018-08-05] VITALS: Ht 157.5 cm; Wt 63.7 kg
--- NOTE | 2018-08-05 21:29 | NUR ---
PT BIBSELF FOR GEN WEAKNESS X TODAY; PT AAOX4, PT TO BED 14, VSS, NAD NOTED, PT ON MONITOR, PENDING ER PROVIDER KARLAL
[2018-08-05] MEDS ORDERED: PANTOPRAZOLE 40 MG VIAL IV ONE (22:00)
[2018-08-05] MEDS ORDERED: IV NS 0.9% 1,000 ML BAG IV ONE (22:00)
[2018-08-05 22:17] LABS: BASOPHILS % (AUTO) 0.3 % (0.0-2.0); HEMATOCRIT 26 % (33-45); HEMOGLOBIN 9.1 g/dL (11.5-14.8); LYMPHOCYTES # (AUTO) 1.5 /CMM (0.8-4.8); LYMPHOCYTES % (AUTO) 14.3 % (20.0-44.0); MEAN CORPUSCULAR HGB CONC 35 g/dl (31.0-36.0); MEAN CORPUSCULAR VOLUME 92 fL (82-100); MONOCYTES # (AUTO) 0.9 /CMM (0.1-1.30); MONOCYTES % (AUTO) 8.7 % (2.0-12.0); NEUTROPHILS # (AUTO) 7.9 /CMM (1.8-8.9); NEUTROPHILS % (AUTO) 76.7 % (43.0-81.0); PLATELET COUNT (AUTO) 91 /CMM (150-450); RED BLOOD CELL COUNT(AUTO) 2.81 MIL/uL (4.0-5.2); WHITE BLOOD COUNT (AUTO) 10.3 K/uL (4.3-11.0)
[2018-08-05] MEDS ORDERED: PANTOPRAZOLE 40 MG VIAL ONE (22:22)
[2018-08-05 22:32] LABS: ALBUMIN 3.2 g/dL (3.4-5.0); BILIRUBIN,DIRECT 0.2 mg/dL (0.0-0.2); BILIRUBIN,TOTAL 0.7 mg/dL (0.2-1.0); CALCIUM, SERUM 8.2 mg/dL (8.5-10.1); CREATININE 0.6 mg/dL (0.6-1.3); POTASSIUM 3.9 mmol/L (3.5-5.1); TOTAL PROTEIN, SERUM 6.6 g/dL (6.4-8.2)
[2018-08-05 23:03] LABS: LYMPHOCYTES % (MANUAL) 11 % (16-48); MONOCYTES % (MANUAL) 7 % (0-11.0); NEUTROPHILS % (MANUAL) 82 (42-76)
--- NOTE | 2018-08-05 23:24 | NUR ---
TELE 320-2
[2018-08-05] MEDS ORDERED: IV NS 0.9% 1,000 ML IV PRN (23:51)
[2018-08-06] MEDS ORDERED: ACETAMINOPHEN 325 MG TABLET PO PRN
[2018-08-06] MEDS ORDERED: MAG HYDROX/AL HYDROX/SIMETH 30 ML UDC PO PRN
[2018-08-06] MEDS ORDERED: Z GUARD REMEDY 2 OZ OINT TP PRN
[2018-08-06] MEDS ORDERED: ONDANSETRON HCL/PF 4 MG/2 ML VIAL IVP PRN
[2018-08-06] MEDS ORDERED: MAGNESIUM HYDROXIDE 30 ML UDC PO PRN
--- NOTE | 2018-08-06 00:08 | NUR ---
REPORT GIVEN TO ARLEN FAY FOR SANTANA; PT WILL BE TRANSPORTED TO 3RD FLOOR VIA ACLS PROTOCOL
[2018-08-06 00:30] VITALS: BP 100/62
[2018-08-06 00:40] VITALS: BP 100/62
--- NOTE | 2018-08-06 00:40 | NUR ---
COMPLIANCE REPRESENTATIVE DEALER NOTES ADMITTED A 58 YEAR OLD FEMALE PATIENT, AWAKE, TRANSPORTED FROM ER VIA GURNEY,NO SIGNS OF ACUTE CARDIAC OR RESPIRATORY DISTRESS NOTED, DENIES NAUSEA AND VOMITING AT THIS TIME, ORIENTED TO UNIT AND THE USE OF CALL LIGHT, SAFETY MEASURES IN PLACE, INITIATE ADMISSION PROCESS, SKIN IS INTACT, EXCEPT A STOMA AND A COLOSTOMY BAG, PHOTO TAKEN, PLACED IN PT'S CHART, IV ACCESS INTACT AND PATENT, CONNECTED TO TELE MONITOR READS SR 90s, ASPIRATION PRECAUTION EMPHASIZE, ALL NEEDS ATTENDED, WILL CONTINUE TO MONITOR ACCORDINGLY.
[2018-08-06 04:00] VITALS: BP 102/57
--- NOTE | 2018-08-06 04:31 | NUR ---
RN NOTES PATIENT'S BODY TEMP AT THIS TIME IS 100.0F/AXILLA, AIRCRAFT SEAT UPHOLSTERER Forrest SHELL MADE AWARE, WILL CONTINUE TO MONITOR. PATIENT DENIES NAUSEA / VOMITING. NON PHARMACOLOGICAL NURSING INTERVENTION DONE, COOLING MEASURES IN PLACE. WILL MONITOR ACCORDINGLY.
[2018-08-06 05:20] LABS: OCCULT BLOOD STOOL POSITIVE (NEGATIVE)
--- NOTE | 2018-08-06 06:45 | NUR ---
RN NOTES RECHECKED BODY TEMP 99.4F/AXILLA.
--- NOTE | 2018-08-06 07:16 | NUR ---
RN NOTES ALL NEEDS ATTENDED AND MET, KEPT CLEAN DRY AND COMFORTABLE, COLOSTOMY BAG SECURED AND INTACT DRAINING BLACK TARRY LIQUID TO PASTY STOOL. ASLEEP AT THIS TIME BUT AROUSABLE, DENIES ANY PAIN AT THIS TIME, SAFETY MEASURES IN PLACE, WILL ENDORSE TO AM NURSE FOR CONTINUITY OF CARE.
[2018-08-06 07:44] LABS: ALBUMIN 2.8 g/dL (3.4-5.0); BILIRUBIN,TOTAL 0.5 mg/dL (0.2-1.0); CREATININE 0.6 mg/dL (0.6-1.3); MAGNESIUM 1.6 mg/dL (1.8-2.4); PHOSPHORUS 2.2 mg/dL (2.5-4.9); POTASSIUM 3.2 mmol/L (3.5-5.1)
[2018-08-06 07:59] LABS: THYROID STIMULATING HORMONE 1.117 uIU/mL (0.358-3.74)
[2018-08-06 08:00] VITALS: BP 101/57
--- NOTE | 2018-08-06 08:02 | NUR ---
BUTTON BREAKER NOTES PATIENT RECEIVED RESTING INSIDE ROOM. AWAKE, ALERT AND ORIENTED, VERBALLY RESPONSIVE AND RESPONDS TO VERBAL AND TACTILE STIMULI. NO ACUTE DISTRESS. DENIES ANY PAIN OR DISCOMFORT. CONTINUE ON NPO STATUS, PATIENT AWARE AND VERBALIZED UNDERSTANDING. WILL CONTINUE TO MONITOR. BED LOCKED AND IN LOW POSITION. BILATERAL UPPER SIDE RAILS UP AND LOCKED. CALL LIGHT WITHIN EASY REACH
[2018-08-06 08:13] LABS: HEMOGLOBIN 8.3 g/dL (11.5-14.8)
[2018-08-06] MEDS ORDERED: PANTOPRAZOLE 40 MG VIAL IV SCH (09:00)
[2018-08-06] MEDS: FUROSEMIDE 20 MG/2 ML VIAL IV SCH ×2 (10:01→16:20)
[2018-08-06] MEDS: NEXIUM 40 MG VIAL IV SCH ×2 (10:10→21:18)
--- NOTE | 2018-08-06 12:20 | NUR ---
Social service consult requested by BLAS Paulino for homelessness. Pt is a 58-year-old female with multiple ER visits and admissions to [facility]. Pts current admission is due to a GI Bleed. Pt has a history of ETOH use. Hospital social workers are familiar with pt. SW met with pt at bedside. Pt was awake, alert and oriented x3. Pt appears disheveled, speech normal, eye contact avoidant and affect full. Pt mood was anxious. Pts reports her primary contact is Bruna Rg ([phone]). Pt reports her mother past away 7 months ago and everything else has gone downhill. Pt reports she is current homeless and in transition. Pt would not disclose to geriatric social worker how long she has been homeless. Pt is ambulatory with no assistance. Pt reports she receives SSI in the amount of $900 a month. Pt reports she is causal drinker, [employer] has a long history of pts ETOH abuse. Pt reports no psychiatric diagnosis. fabric worker fitter provided pt with a list of referral and resources to homeless longterm program, Homeless Access resources, food resources, mental health clinics , community health clinics and substance abuse resources and treatment centers. Pt accepted resources and geriatric social worker left paperwork with pt. Pt signed homeless waiver, geriatric social worker filed original in pts chart Pt currently denies suicidal and homicidal ideations and visual/auditory hallucinations at this time. No other social service needs are requested at this time. SW is available, if needed.
--- NOTE | 2018-08-06 12:23 | NUR ---
Social Service consult: Pts discharge plan is to return to the streets, pt would not disclose any certain area that she mainly resides in. Pt signed homeless waiver, original in pts chart.
[2018-08-06] MEDS ORDERED: POTASSIUM PHOSPHATE MM 7.5 MMOL in IV D5W 100 ML IV SCH (13:30)
[2018-08-06] MEDS: POTASSIUM CL. PREMIX PERIPHER. 50 ML IV SCH ×4 (13:37→17:24)
[2018-08-06] MEDS: Magnesium 1GM/D5W 100ML PREMIX 100 ML IV SCH ×2 (13:37→14:53)
[2018-08-06 16:09] VITALS: BP 85/59
--- NOTE | 2018-08-06 17:17 | NUR ---
MS RN NOTES PATIENT SEEN AND EXAMINED BY TAMI STILL TEST CENTER MANAGER. GAVE OK TO START NPO EXCEPT MEDICATIONS. ORDER NOTED AND CARRIED OUT. PATIENT MADE AWARE AND VERBALIZED UNDERSTANDING. WILL CONTINUE TO MONITOR
[2018-08-06] MEDS: HYDROCODONE/APAP 5/325MG 1 EACH TABLET PO PRN ×2 (17:25→21:25)
[2018-08-06] MEDS: SUCRALFATE 1 G TABLET PO SCH ×2 (17:25→21:18)
[2018-08-06 17:37] LABS: IRON, SERUM 23 ug/dl (50-175); TOTAL IRON BINDING CAPACITY 285 ug/dl (250-450)
[2018-08-06 17:51] LABS: FERRITIN 132 ng/mL (8-388)
--- NOTE | 2018-08-06 17:54 | NUR ---
MS RN NOTES VERIFIED INFORMED CONSENT OBTAINED FROM PATIENT BY MD AND WITNESSED BY LICENSED STAFF.
--- NOTE | 2018-08-06 17:58 | NUR ---
MS RN NOTES WITH NEW ORDER FROM TAMI STILL NP FOR SOLU-MEDROL 30mg IV QD. ORDER NOTED AND CARRIED OUT. WILL CONTINUE TO MONITOR
--- NOTE | 2018-08-06 17:59 | NUR ---
MS RN NOTES WITH NEW ORDERS FROM FRANCES RETANA DNP FOR D5LR AT 75 ml/hr, UA WITH CX, LORAZEPAM 1MG PO Q2� PRN FOR WITHDRAWALS. ORDERS NOTED AND CARRIED OUT. PATIENT MADE AWARE. WILL CONTINUE TO MONITOR
[2018-08-06] MEDS ORDERED: LORAZEPAM 1 MG TABLET PO PRN (18:30)
--- NOTE | 2018-08-06 18:32 | NUR ---
MS RN NOTES PATIENT RESTING INSIDE ROOM. NO ACUTE DISTRESS. PATIENT CALM AND RELAXED. NO ACUTE DISTRESS. CONTINUE ON NPO STATUS. PATIENT AWARE AND VERBALIZED UNDERSTANDING. WILL ENDORSE TO INCOMING SHIFT FOR SANTANA. BED LOCKED AND IN LOW POSITION. BILATERAL UPPER SIDE RAILS UP AND LOCKED. CALL LIGHT WITHIN EASY REACH
[2018-08-06] MEDS: methylPREDNISolone SOD SUCC 40 MG/ML VIAL IV SCH (18:55)
--- NOTE | 2018-08-06 19:15 | NUR ---
MS RN OPENING NOTES Received patient in bed watching TV, alert, oriented x 4. Breathing even and unlabored. Not in any distress, on room air. Colostomy bag on right upper abdomen noted with black liquid stool. No complaints at this time. Safety measures in place; call light within reach, bed in lowest, locked position. Will continue to monitor accordingly
[2018-08-06] MEDS: IV D5 LR 1,000 ML IV PRN (19:49)
[2018-08-06 20:00] VITALS: BP 98/61
--- NOTE | 2018-08-06 21:26 | NUR ---
RN NOTES Patient c/o generalized pain, 10/29. Requesting for norco- given as ordered. Will continue to monitor
[2018-08-06 22:44] LABS: APPEARANCE,URINE Clear (CLEAR); BILIRUBIN,URINE Negative (NEGATIVE); BLOOD, URINE Negative Ery/uL (NEGATIVE); COLOR,URINE Yellow (YELLOW); KETONES,URINE Negative (NEGATIVE); LEUKOCYTE ESTERASE ,URINE Moderate (NEGATIVE); NITRITE, URINE Negative (NEGATIVE); PH,URINE 5.5 (5.0-8.0); PROTEIN,URINE Negative (NEGATIVE); UGLUCOSE Negative (NEGATIVE); UROBILINOGEN,URINE 0.2 EU/dL (0.2)
[2018-08-07 02:40] LABS: BACTERIA,URINE Few /HPF (None Seen); SQUAMOUS EPITHELIAL CELL,UR Few /HPF (None Seen)
[2018-08-07] MEDS: HYDROCODONE/APAP 5/325MG 1 EACH TABLET PO PRN ×4 (05:25→21:10)
--- NOTE | 2018-08-07 05:26 | NUR ---
RN NOTES Patient c/o generalized pain, 10/29. Requesting for norco- given as ordered. Will continue to monitor
--- NOTE | 2018-08-07 06:41 | NUR ---
MS RN CLOSING NOTES Patient resting in bed, watching TV. Breathing even and unlabored. Not in any distress, on room air. No complaints at this time. Peripheral IV infusing at 75mL/hr. All needs attended. No acute changes overnight. Safety measures in place; call light within reach. Bed in low, locked position. Will endorse SANTANA to oncoming RN.
[2018-08-07 07:29] LABS: BASOPHILS % (AUTO) 0.1 % (0.0-2.0); HEMATOCRIT 24 % (33-45); HEMOGLOBIN 8.1 g/dL (11.5-14.8); LYMPHOCYTES % (AUTO) 31.9 % (20.0-44.0); MEAN CORPUSCULAR HGB CONC 34 g/dl (31.0-36.0); MEAN CORPUSCULAR VOLUME 93 fL (82-100); MONOCYTES # (AUTO) 0.1 /CMM (0.1-1.30); NEUTROPHILS # (AUTO) 2.1 /CMM (1.8-8.9); PLATELET COUNT (AUTO) 97 /CMM (150-450); RED BLOOD CELL COUNT(AUTO) 2.55 MIL/uL (4.0-5.2); WHITE BLOOD COUNT (AUTO) 3.2 K/uL (4.3-11.0)
[2018-08-07] MEDS: SUCRALFATE 1 G TABLET PO SCH ×4 (07:30→21:09)
[2018-08-07 07:41] LABS: ALBUMIN 2.9 g/dL (3.4-5.0); BILIRUBIN,TOTAL 0.4 mg/dL (0.2-1.0); CALCIUM, SERUM 8.4 mg/dL (8.5-10.1); CREATININE 0.6 mg/dL (0.6-1.3); MAGNESIUM 2.1 mg/dL (1.8-2.4); POTASSIUM 4.4 mmol/L (3.5-5.1); TOTAL PROTEIN, SERUM 6.6 g/dL (6.4-8.2)
--- NOTE | 2018-08-07 08:25 | NUR ---
MS RN NOTES PATIENT RESTING INSIDE ROOM. AWAKE, ALERT AND ORIENTED, VERBALLY RESPONSIVE AND RESPONDS TO VERBAL AND TACTILE STIMULI. BREATHING EVEN AND UNLABORED. NO ACUTE DISTRESS AT THIS TIME. PATIENT CALM AND RELAXED. NO CHANGES IN LOC NOTED. WILL CONTINUE TO MONITOR. BED LOCKED AND IN LOW POSITION. BILATERAL UPPER SIDE RAILS UP AND LOCKED. CALL LIGHT WITHIN EASY REACH
[2018-08-07 09:00] VITALS: BP 82/52
[2018-08-07] MEDS: FUROSEMIDE 20 MG/2 ML VIAL IV SCH ×2 (09:00→16:02)
[2018-08-07] MEDS: methylPREDNISolone SOD SUCC 40 MG/ML VIAL IV SCH (09:10)
[2018-08-07] MEDS: NEXIUM 40 MG VIAL IV SCH ×2 (09:11→21:09)
[2018-08-07] MEDS: LEVOFLOXACIN 750 MG /D5W 150ML 750 MG in PREMIX 1 EA IV SCH (11:52)
[2018-08-07] MEDS: IV D5 LR 1,000 ML IV PRN (15:28)
[2018-08-07 16:00] VITALS: BP 93/49
--- NOTE | 2018-08-07 18:25 | NUR ---
MS RN NOTES PATIENT RESTING INSIDE ROOM. AWAKE, ALERT AND ORIENTED, VERBALLY RESPONSIVE AND RESPONDS TO VERBAL AND TACTILE STIMULI. BREATHING EVEN AND UNLABORED. NO ACUTE DISTRESS NOTED AT THIS TIME. PATIENT CALM AND RELAXED. IVF INFUSING WELL. PATIENT KEPT CLEAN, DRY AND COMFORTABLE. WILL ENDORSE TO INCOMING SHIFT FOR SANTANA. BED LOCKED AND IN LOW POSITION. BILATERAL UPPER SIDE RAILS UP AND LOCKED. CALL LIGHT WITHIN EASY REACH
--- NOTE | 2018-08-07 19:25 | NUR ---
RN NOTES Received patient awake, alert and oriented x3, denies any pain and discomfort at this time. On room air and tolerated well. IV access on left and right hand patent and intact with ongoing IV fluid on right hand. Ileostomy intact, not leaking with dark kinsey stool noted. Plan of care discussed with the patient and verbalized understanding. Kept comfortable and attended will call light within reach. Will continue to monitor pt.
[2018-08-07 20:00] VITALS: BP 107/67
--- NOTE | 2018-08-07 21:10 | NUR ---
RN Notes Patient complains of lower back pain 08/28, Ellington 5/235 mg tab given PO and tolerated well. Will continue to monitor.
[2018-08-07 22:00] VITALS: BP 107/67
[2018-08-08] MEDS: HYDROCODONE/APAP 5/325MG 1 EACH TABLET PO PRN ×3 (01:36→15:58)
--- NOTE | 2018-08-08 01:36 | NUR ---
RN Notes Patient complaining of lower back pain 08/28, Raysal 5/325 mg tab given PO. Will continue to monitor patient.
--- NOTE | 2018-08-08 06:18 | NUR ---
RN Notes Patient slept on and off overnight because of the room mate. Vital signs stable, afebrile. Denies SOB, nausea and vomiting. Complains of pain on lower back, managed with [place] with good relief. Ileostomy intact, not leaking with dark kinsey output. Voiding well. Kept NPO after midnight, patient for EGD this AM. Plan of care discussed with the patient and verbalized understanding. Will endorse for continuity of care.
[2018-08-08 07:42] LABS: BASOPHILS % (AUTO) 0.1 % (0.0-2.0); HEMATOCRIT 25 % (33-45); HEMOGLOBIN 8.5 g/dL (11.5-14.8); LYMPHOCYTES # (AUTO) 2.8 /CMM (0.8-4.8); LYMPHOCYTES % (AUTO) 36.3 % (20.0-44.0); MEAN CORPUSCULAR HGB CONC 34 g/dl (31.0-36.0); MEAN CORPUSCULAR VOLUME 93 fL (82-100); MONOCYTES # (AUTO) 0.5 /CMM (0.1-1.30); MONOCYTES % (AUTO) 6.6 % (2.0-12.0); NEUTROPHILS # (AUTO) 4.5 /CMM (1.8-8.9); PLATELET COUNT (AUTO) 138 /CMM (150-450); RED BLOOD CELL COUNT(AUTO) 2.65 MIL/uL (4.0-5.2); WHITE BLOOD COUNT (AUTO) 7.8 K/uL (4.3-11.0)
[2018-08-08 07:57] LABS: ALBUMIN 3.1 g/dL (3.4-5.0); BILIRUBIN,TOTAL 0.3 mg/dL (0.2-1.0); CALCIUM, SERUM 8.6 mg/dL (8.5-10.1); CREATININE 0.6 mg/dL (0.6-1.3); MAGNESIUM 2.1 mg/dL (1.8-2.4); PHOSPHORUS 3.4 mg/dL (2.5-4.9); POTASSIUM 4.3 mmol/L (3.5-5.1); TOTAL PROTEIN, SERUM 6.9 g/dL (6.4-8.2)
[2018-08-08 08:00] VITALS: BP 88/55
--- NOTE | 2018-08-08 08:00 | NUR ---
RN Notes Patient alert,awake and verbally responsive.Vital signs stable, afebrile. Denies SOB, nausea and vomiting. Complains of pain on lower back, managed with [place] with good relief. Ileostomy intact, not leaking with dark kinsey output. Voiding well. Kept NPO after midnight, for EGD by Dr Baez this AM. Plan of care discussed with the patient and verbalized understanding. Call light placed within reach.
[2018-08-08] MEDS: FUROSEMIDE 20 MG/2 ML VIAL IV SCH ×2 (08:13→17:00)
[2018-08-08] MEDS: NEXIUM 40 MG VIAL IV SCH ×2 (08:25→21:54)
[2018-08-08] MEDS: SUCRALFATE 1 G TABLET PO SCH ×4 (11:00→21:55)
[2018-08-08] MEDS: LEVOFLOXACIN 750 MG /D5W 150ML 750 MG in PREMIX 1 EA IV SCH (11:27)
--- NOTE | 2018-08-08 13:00 | NUR ---
Came back from O.R. S/P EGD with multiple gastric ulcers and small hiatal hernia. Pt back on cardiac diet-verbalizing she is so hungry.Carafate po given prior to eating lunch. Denies pain or distress.Ileostomy intact and emptied by pt herself. Armstrong precautions and handwashing teaching given.Will monitor.Call light placed within reach.
[2018-08-08 15:54] VITALS: BP 104/66
--- NOTE | 2018-08-08 18:07 | NUR ---
HELD LASIX IV DUE TO LOW BP 104/66 HR 93.
--- NOTE | 2018-08-08 19:30 | NUR ---
MS DIRECTOR COMMERCIAL SALES INITIAL NOTES received report from am nurse and saw pt in bed awake and alert sitting while watching tv at this time. denies any pain or any discomfort. IVF still infusing on her left ac patent and intact. heplock on her left hand patent and intact as well. kept her warm and comfortable at all times.kept her warm and comfortable at all times. place call light at reach. will continue monitoring.
[2018-08-08 20:00] VITALS: BP 115/81
--- NOTE | 2018-08-08 21:55 | NUR ---
ms lewis notes nexium 40mg ivp administered by nurse jada/RN as ordered. kept her warm and comfortable at all times. will continue monitoring.
[2018-08-08] MEDS: IV D5 LR 1,000 ML IV PRN (23:51)
--- NOTE | 2018-08-08 23:59 | NUR ---
ms glove stitcher notes pt sleeping comfortably in bed without any acute distress noted. IVF still infusing and , kept her warm and comfortable at all times. place call light at reach. will continue monitoring. place call light at reach.
--- NOTE | 2018-08-09 02:00 | NUR ---
ms panama hat smearer notes remains resting with eyes closed without any distress noted. IVF still infusing. will continue monitoring.
--- NOTE | 2018-08-09 06:52 | NUR ---
ms mortgage consultant closing notes pt back to sleep after she used the restroom. slept well and stable jono the night. all due meds given and all needs met. IVF D5LR at 75ml/hr still infusing on her left ac patent and intact. not in any distress noted. kept her warm and comfortable at all times. will endorse to am nurse for continuity of care. place call light at reach.
--- NOTE | 2018-08-09 07:00 | NUR ---
MS RN NOTES PATIENT IN BED , ALERT ORIENTED X 3. NO ACUTE DISTRESS NOTED. BREATHING UNLABORED. IV ACCESS PATENT AND INTACT, NO REDNESS OR SWELLING NOTED. SAFETY MEASURES IN PLACE. CALL LIGHT WITHIN REACH. WILL CONTINUE TO MONITOR ACCORDINGLY.
[2018-08-09] MEDS: SUCRALFATE 1 G TABLET PO SCH ×2 (07:47→12:27)
[2018-08-09 08:00] VITALS: BP 102/72
[2018-08-09] MEDS: HYDROCODONE/APAP 5/325MG 1 EACH TABLET PO PRN (08:21)
[2018-08-09] MEDS: FUROSEMIDE 20 MG/2 ML VIAL IV SCH (09:00)
[2018-08-09] MEDS: NEXIUM 40 MG VIAL IV SCH (09:38)
[2018-08-09] MEDS ORDERED: LEVOFLOXACIN (750 MG) 750 MG TABLET PO SCH (10:00)
--- NOTE | 2018-08-09 10:36 | NUR ---
SW met with pt. bedside to discuss discharge planning. Pt. is alert and oriented x 4. Pt. is pleasant and cooperative with SW. Pt. is ambulatory. Pt's mood is congruent. SW offered pt. longterm placement and SNF placement, however pt. declined both. Pt. stated she is going to meet with her friend Bruna Rg once she is discharged. SW encouraged pt. to go to [facility] located at [address] [place] [address] in [place] and link with a bilingual patient support caseworker at the facility for services. Pt. stated she will follow up. Pt. has a history of alcohol abuse and SW encouraged pt. to go to AA meetings. Pt. accepted the following resources/ referrals:[facility], [address] [facility] [facility] [address] ; [facility], [address] [facility] ; [facility] Homeless Resource Directory which includes food stamps, transitional housing, showers and hot meals etc; Mental Health clinics such as [facility] ; [facility] ; Health clinics;[facility] and Alcohol treatment centers such as [facility], ; [facility] Substance Abuse Hotline and [facility] . Homeless Patient Waiver Form was signed by the pt. and placed in pt's chart. SINDY updated bilingual patient support caseworker Gisela Grayson, pt's SUMEET Cavazos and Dr. Garcia regarding pt's discharge plan. No other social service needs are requested at this time. SW is available, if needed. Pt. will require a TAP card upon discharge and SUMEET Cavazos was notified.
[2018-08-09] MEDS ORDERED: PANT40TA2 PO (12:17)
[2018-08-09] MEDS ORDERED: LEVO750T21 PO (12:17)
[2018-08-09] MEDS ORDERED: SUCR1TAB PO (12:17)
--- NOTE | 2018-08-09 12:28 | NUR ---
MS RN NOTES SEEN AND EVALUATED BY FRANCES RETANA DNP WITH NEW ORDERS MADE, NOTED AND CARRIED OUT.
[2018-08-09] MEDS ORDERED: SOD FERRIC GLUC 125 MG in IV NS 0.9% 100 ML IV SCH (14:00)
--- NOTE | 2018-08-09 14:15 | NUR ---
MS RN NOTES PATIENT DISCHARGED HOME WITH STABLE VITAL SIGNS. NO ACUTE DISTRESS NOTED, BREATHING UNLABORED. NO SOB NOTED. DISCHARGE INSTRUCTIONS GIVEN TO PATIENT INCLUDING FOLLOW UP WITH PRIMARY DOCTOR AND NEW PRESCRIPTIONS, VERBALIZED UNDERSTANDING. PATIENT REFUSED ILEOSTOMY BAG CHANGED AND PHOTO TAKEN DESPITE OF EXPLANATION OF RISK AND BENEFITS. ALL BELONGINGS ACCOUNTED FOR. IV ACCESS REMOVED, NO BLEEDING, NO REDNESS NOTED. PATIENT ALERT ORIENTED X 3, AMBULATORY WITH STEADY GAIT. PROVIDED TAP CARD TO PATIENT. ASSISTED TO THE LOBBY, PATIENT DISCHARGED IN STABLE CONDITION.
== END 2018-08-09 14:15 | disposition home or self-care (01) | DRG 377 ==
LOC: ER 21:23 → TELE 23:25 → MED 08-06 08:55
PROVIDERS: ADMIT Registered Nurse; ATTEND Hospitalist
PROC: 0DB78ZX Excision of Stomach, Pylorus, Via Natural or Artificial Opening Endoscopic, Diagnostic (ICD-10-PCS; principal; 2018-08-08)
DX: K25.4 Chronic or unspecified gastric ulcer with hemorrhage (principal); I50.33 Acute on chronic diastolic (congestive) heart failure; D62 Acute posthemorrhagic anemia; E44.0 Moderate protein-calorie malnutrition; E87.1 Hypo-osmolality and hyponatremia; N39.0 Urinary tract infection, site not specified; K50.90 Crohn's disease, unspecified, without complications; D68.9 Coagulation defect, unspecified; I11.0 Hypertensive heart disease with heart failure; R53.1 Weakness; R79.89 Other specified abnormal findings of blood chemistry; F10.10 Alcohol abuse, uncomplicated; R74.0 Nonspecific elevation of levels of transaminase and lactic acid dehydrogenase [LDH]; Z86.19 Personal history of other infectious and parasitic diseases; Z68.25 Body mass index [BMI] 25.0-25.9, adult; E88.09 Other disorders of plasma-protein metabolism, not elsewhere classified; Z59.0 Homelessness; E87.6 Hypokalemia; E83.42 Hypomagnesemia; E83.39 Other disorders of phosphorus metabolism; F17.210 Nicotine dependence, cigarettes, uncomplicated; Z93.3 Colostomy status; K44.9 Diaphragmatic hernia without obstruction or gangrene; Z88.0 Allergy status to penicillin; Z88.2 Allergy status to sulfonamides
CPT/HCPCS: 36415; 71045-TC; 80048-TC; 80053-TC; 80061-TC; 80076-TC; 81000-TC; 82272-TC; 82728-TC; 83540-TC; 83690-TC; 83735-TC; 84100-TC; 84443-TC; 85025-TC; 85027-TC; 85730-TC; 86850-TC; 87081-TC; 87086-TC; 88305-TC; 88313-TC; 88342; 93307-TC; A4216; C9113; G0378; J1940; J1956; J2001; J2704; J2916; J2920; J3475; J3480; J3490; J7030; J7060

== ENCOUNTER 2018-08-15 14:02 | Emergency (ER) | payer MEDICARE ==
[~2018-08-15] VITALS: Ht 165.1 cm; Wt 65.3 kg
[~2018-08-15 14:02] MED LIST changes: -ALPR2TAB7 PO; -HYDR-3972 PO; +LEVO750T21 PO; +PANT40TA2 PO; -PARO30TA74 PO; -RISP4TAB17 PO; +SUCR1TAB PO
[2018-08-15 14:07] VITALS: BP 115/82
--- NOTE | 2018-08-16 06:29 | NUR ---
pt ok to be discharged per dr vazquez. Patient discharged to home in stable condition. Written and verbal after care instructions given. Patient verbalizes understanding of instruction.Patient is awake and alert to self, day, and place. pt ambulatory with a steady gait. Pt provided with TAP card. Pt refusing homeless resources and waiver.
== END 2018-08-16 06:32 | disposition home or self-care (01) ==
LOC: ER 14:04
DX: Z43.3 Encounter for attention to colostomy (principal); F10.229 Alcohol dependence with intoxication, unspecified; Y90.9 Presence of alcohol in blood, level not specified; K50.90 Crohn's disease, unspecified, without complications; Z86.19 Personal history of other infectious and parasitic diseases; Z88.0 Allergy status to penicillin; Z88.2 Allergy status to sulfonamides; Z91.011 Allergy to milk products

== ENCOUNTER 2018-08-20 19:07 | Emergency (ER) | payer MEDICARE ==
[~2018-08-20] VITALS: Ht 167.6 cm; Wt 65.8 kg
--- NOTE | 2018-08-20 20:20 | NUR ---
PT BIB RA WITH A C/O ETOH. PT IS INTERMITTENTLY WAKING UP AND YELLING. PT'S CLOTHES ARE DIRTY. WILL CLEAN UP PT A LITTLE LATER WHEN PT IS A BIT MORE ALERT. PT WANTS TO BE LEFT ALONE. PT WAS PLACED ON THE MONITOR AND CONTINUOUS PULSE OX.
[2018-08-20] MEDS ORDERED: CEFTRIAXONE 1 G VIAL IM ONE (22:30)
[2018-08-20] MEDS ORDERED: CEFTRIAXONE 1 G VIAL ONE (22:31)
[2018-08-20] MEDS ORDERED: LIDOCAINE /MPF 1% VIAL 5 ML VIAL ONE (22:31)
--- NOTE | 2018-08-20 22:47 | NUR ---
BLOOD DRAW AT THE BEDSIDE
[2018-08-20 22:50] LABS: BASOPHILS % (AUTO) 0.9 % (0.0-2.0); EOSINOPHILS % (AUTO) 0.8 % (0.0-6.0); HEMATOCRIT 29 % (33-45); HEMOGLOBIN 9.7 g/dL (11.5-14.8); LYMPHOCYTES # (AUTO) 2.5 /CMM (0.8-4.8); LYMPHOCYTES % (AUTO) 65.7 % (20.0-44.0); MEAN CORPUSCULAR HGB CONC 33 g/dl (31.0-36.0); MEAN CORPUSCULAR VOLUME 90 fL (82-100); MONOCYTES # (AUTO) 0.4 /CMM (0.1-1.30); MONOCYTES % (AUTO) 10.3 % (2.0-12.0); NEUTROPHILS # (AUTO) 0.8 /CMM (1.8-8.9); NEUTROPHILS % (AUTO) 22.3 % (43.0-81.0); PLATELET COUNT (AUTO) 180 /CMM (150-450); RED BLOOD CELL COUNT(AUTO) 3.23 MIL/uL (4.0-5.2); WHITE BLOOD COUNT (AUTO) 3.8 K/uL (4.3-11.0)
[2018-08-20 22:55] LABS: CREATININE 0.6 mg/dL (0.6-1.3); POTASSIUM 3.1 mmol/L (3.5-5.1)
[2018-08-20 23:00] LABS: ALBUMIN 3.3 g/dL (3.4-5.0); BILIRUBIN,DIRECT 0.1 mg/dL (0.0-0.2); BILIRUBIN,TOTAL 0.3 mg/dL (0.2-1.0); TOTAL PROTEIN, SERUM 6.6 g/dL (6.4-8.2)
--- NOTE | 2018-08-20 23:00 | NUR ---
PT HAD SOILED CLOTHING AND NO COLOSTOMY BAG ON. PT'S CLOTHES WERE REMOVED. PT WAS CLEANED AND NEW COLOSTOMY BAG WAS PUT OVER THE PT'S STOMA. PT'S SOCKS WERE REMOVED AND BILATERAL FEET WERE WASHED. PT HAD A BURST BLISTER ON THE RT HEEL. TRIPLE ANTIBIOTIC AND A BANDAID WAS APPLIED. PT REC'D NEW PANTS AND 2 NEW TOPS. NEW SOCKS WERE PUT ON PT'S FEET. PT REC'D A PILLOW AND A WARM BLANKET. PT IS ON THE MONITOR AND CONTINUOUS PULSE OX. VSS. WILL CONTINUE TO MONITOR THE PT.
[2018-08-20 23:05] LABS: CALCIUM, SERUM 8.4 mg/dL (8.5-10.1)
--- NOTE | 2018-08-21 00:02 | NUR ---
PT APPEARS TO BE SLEEPING SOUNDLY WITH NO S/S OF PAIN OR DISTRESS.
[2018-08-21] MEDS ORDERED: POTASSIUM CHLORIDE 20 MEQ TAB.PRT.SR PO ONE ×2 (03:30→06:05)
--- NOTE | 2018-08-21 06:25 | NUR ---
PT REC'D A NEW COLOSTOMY BAG AND TWO TO TAKE WITH HER. PT AMBULATED OUT WITH A STEADY GAIT. Patient discharged in stable condition. Written and verbal after care instructions given. Patient verbalizes understanding of instruction. PT IS HOMELESS AND REC'D THE HOMELESS PACKET, BUT REFUSED PLACEMENT. HOMELESS WAIVER IN THE PACKET. PT DID NOT WANT A MEAL. VSS.
[2018-08-21 06:30] VITALS: BP 97/62
== END 2018-08-21 06:40 | disposition home or self-care (01) ==
LOC: ER 19:10
DX: F10.229 Alcohol dependence with intoxication, unspecified (principal); D64.9 Anemia, unspecified; K50.90 Crohn's disease, unspecified, without complications; Y90.7 Blood alcohol level of 200-239 mg/100 ml; Z93.3 Colostomy status; Z86.19 Personal history of other infectious and parasitic diseases; Z88.0 Allergy status to penicillin; Z88.2 Allergy status to sulfonamides; Z91.011 Allergy to milk products
CPT/HCPCS: 36415; 80048; 80076; 80307; 83690; 85025; 99283; J3490; G0480; J0696

== ENCOUNTER 2018-08-23 01:55 | Emergency (ER) | payer MEDICARE, OTHER ==
[~2018-08-23] VITALS: Ht 167.6 cm; Wt 68.0 kg
[2018-08-23 02:09] VITALS: BP 147/88
[2018-08-23] MEDS ORDERED: ACETAMINOPHEN ES 500 MG TABLET ONE (02:14)
--- NOTE | 2018-08-23 02:29 | NUR ---
Patient given written and verbal discharge instructions. Patient verbalizes understanding of instructions. Patient is ambulatory with steady gait. Refuses offer of fdc placement. Patient given list of available shelters in surrounding area.
[2018-08-23] MEDS ORDERED: ACETAMINOPHEN ES 500 MG TABLET PO ONE (02:30)
== END 2018-08-23 02:30 | disposition home or self-care (01) ==
LOC: ER 01:57
DX: M79.18 Myalgia, other site (principal); K50.90 Crohn's disease, unspecified, without complications; F10.10 Alcohol abuse, uncomplicated; Y90.9 Presence of alcohol in blood, level not specified; Z93.3 Colostomy status; Z86.19 Personal history of other infectious and parasitic diseases; Z88.0 Allergy status to penicillin; Z88.2 Allergy status to sulfonamides; Z91.011 Allergy to milk products
CPT/HCPCS: 99282; A4362

== ENCOUNTER 2018-08-31 12:11 | Emergency (ER) | payer MEDICARE, OTHER ==
[~2018-08-31] VITALS: Ht 162.6 cm; Wt 60.8 kg
--- NOTE | 2018-08-31 12:20 | NUR ---
[id number], STREETS, SLEEPING IN A SIDEWALK C/O WEAKNESS. PATIENT A/OX3, BREATHING EVEN AND UNLABORED, NO SOB NOTED, VSS. ATTACHED TO THE MONITOR.
--- NOTE | 2018-08-31 12:40 | NUR ---
BG 121. ECHO ODONNELL AWARE
--- NOTE | 2018-08-31 14:58 | NUR ---
PATIENT ALERT AND ORIENTED X3, BREATHING EVEN AND UNLABORED, HOMELESS WAIVER FORM SIGNED, RESOURCES PROVIDED, PATIENT AMBULATORY WITH STEADY GAIT. GAVE SNACKS, BUT REFUSED TAP CARD. PATIENT LEFT IN NO DISTRESS, discharged in stable condition. Written and verbal after care instructions given. Patient verbalizes understanding of instruction.
[2018-08-31 15:00] VITALS: BP 116/70
== END 2018-08-31 15:00 | disposition home or self-care (01) ==
LOC: ER 12:15
DX: F10.10 Alcohol abuse, uncomplicated (principal); R10.84 Generalized abdominal pain; R51 Headache; Z59.0 Homelessness; Z93.3 Colostomy status; Z86.19 Personal history of other infectious and parasitic diseases; Z88.0 Allergy status to penicillin; Z88.2 Allergy status to sulfonamides; Z91.011 Allergy to milk products; Z79.899 Other long term (current) drug therapy; Y90.9 Presence of alcohol in blood, level not specified

== ENCOUNTER → 2018-09-04 | Emergency (ER) | payer MEDICARE ==
[~2018-09-04] VITALS: Ht 160 cm; Wt 61.2 kg
[~2018-09-04] MED LIST changes: +CLOTRIMAZOLE 1% 15 GM TUBE TP SCH
--- NOTE | 2018-09-04 19:29 | NUR ---
[id number] FROM STREETS FOR ETOH; PT TO BED 6, -SOB, NAD NOTED, VSS, PENDING MD SALEH
[2018-09-04 22:10] VITALS: BP 159/90
--- NOTE | 2018-09-04 22:28 | NUR ---
Patient given written and verbal discharge instructions. Patient verbalizes understanding of instructions. Patient is ambulatory with steady gait. Refuses offer of snf placement. Patient given list of available shelters in surrounding area.
== END | disposition home or self-care (01) ==
LOC: ER 19:28
DX: F10.229 Alcohol dependence with intoxication, unspecified (principal); B37.2 Candidiasis of skin and nail; K50.90 Crohn's disease, unspecified, without complications; Y90.9 Presence of alcohol in blood, level not specified; Z86.19 Personal history of other infectious and parasitic diseases; Z88.0 Allergy status to penicillin; Z88.2 Allergy status to sulfonamides; Z91.011 Allergy to milk products; Z93.3 Colostomy status; Z59.0 Homelessness
CPT/HCPCS: 82962-TC

== ENCOUNTER 2018-09-14 17:12 | Emergency (ER) | payer MEDICARE ==
[~2018-09-14] VITALS: Ht 160 cm; Wt 61.2 kg
[~2018-09-14 17:12] MED LIST changes: -CLOTRIMAZOLE 1% 15 GM TUBE TP SCH
--- NOTE | 2018-09-14 17:16 | NUR ---
PT BELONGINGS BY NURSING STATION
--- NOTE | 2018-09-14 17:38 | NUR ---
ALEKSANDRA, FOUND HER IN THE STREET DRUNK, SMELLS ALCOHOL PER EMS. BS 112. PT EYES CLOSED. RR EVEN & UNLABORED. NO RESP DISTRESS NOTED @DC, WILL CONT TO MONITOR.
--- NOTE | 2018-09-14 20:00 | NUR ---
Patient is resting comfortably in bed with eyes closed. Easily aroused. VSS
--- NOTE | 2018-09-15 06:13 | NUR ---
pt ok to discharge per dr rangel. Patient discharged to home in stable condition. Written and verbal after care instructions given. Patient verbalizes understanding of instruction.Patient is awake and alert to self, day, and place. pt ambulatory with a steady gait
[2018-09-15 06:14] VITALS: BP 115/71
== END 2018-09-15 06:14 | disposition home or self-care (01) ==
LOC: ER 17:16
DX: F10.129 Alcohol abuse with intoxication, unspecified (principal); Y90.9 Presence of alcohol in blood, level not specified; Z93.3 Colostomy status; Z86.19 Personal history of other infectious and parasitic diseases; Z88.0 Allergy status to penicillin; Z88.2 Allergy status to sulfonamides; Z91.011 Allergy to milk products
CPT/HCPCS: A4362

== ENCOUNTER 2018-09-17 18:36 | Emergency (ER) | payer MEDICARE ==
[~2018-09-17] VITALS: Ht 162.6 cm; Wt 60.8 kg
--- NOTE | 2018-09-17 19:18 | NUR ---
BIBRA86, FOUND PASSED OUT ,IN FRONT OF A [employer] SHOP. +ETOH DENIES ANY MEDICAL COMPLAINT SENIOR HRIS ANALYST. APPEARS DISHEVELED. TO ER BED 12. PLACED ON MONITOR AND READY FOR EVAL.
--- NOTE | 2018-09-17 21:34 | NUR ---
PT ASLEEP IN BED, AROUSES EASILY. NO COMPLAINTS AT THIS TIME. VSS. WILL CONT TO MONITOR.
--- NOTE | 2018-09-17 23:32 | NUR ---
Patient is resting comfortably in bed. Easily aroused. VSS
[2018-09-18 00:05] VITALS: BP 113/77
== END 2018-09-18 03:46 | disposition home or self-care (01) ==
LOC: ER 18:37
DX: F10.129 Alcohol abuse with intoxication, unspecified (principal); Z59.0 Homelessness; Z93.3 Colostomy status; Z88.0 Allergy status to penicillin; Z88.2 Allergy status to sulfonamides; Z91.011 Allergy to milk products; Z79.899 Other long term (current) drug therapy; Y90.9 Presence of alcohol in blood, level not specified

== ENCOUNTER 2018-09-28 00:38 | Emergency (ER) | payer MEDICARE ==
[~2018-09-28] VITALS: Ht 167.6 cm; Wt 56.7 kg
--- NOTE | 2018-09-28 00:40 | NUR ---
"[id number] FROM [address] FOR ETOH." PT TO BED 7, ALL BELONGINGS AT NURSING STATION, -SOB, VSS, NAD NOTED, PENDING MD SALEH
[2018-09-28 01:00] VITALS: BP 132/90
--- NOTE | 2018-09-28 09:48 | NUR ---
Brent sanders in [facility] - 09/28/18 at 0948 by KATHYA Patient discharged to home in stable condition. Written and verbal after care instructions given. Patient verbalizes understanding of instruction.
--- NOTE | 2018-09-28 09:49 | NUR ---
Patient given written and verbal discharge instructions. Patient verbalizes understanding of instructions. Patient is ambulatory with steady gait. Refuses offer of [facility] placement. Patient given list of available shelters in surrounding area.
== END 2018-09-28 09:51 | disposition home or self-care (01) ==
LOC: ER 00:41
DX: F10.129 Alcohol abuse with intoxication, unspecified (principal); F17.200 Nicotine dependence, unspecified, uncomplicated; Z93.3 Colostomy status; Z86.19 Personal history of other infectious and parasitic diseases; Z88.0 Allergy status to penicillin; Z88.2 Allergy status to sulfonamides; Z91.011 Allergy to milk products; Z79.899 Other long term (current) drug therapy; Y90.9 Presence of alcohol in blood, level not specified

== ENCOUNTER 2018-10-14 20:07 | Emergency (ER) | payer MEDICARE ==
[~2018-10-14] VITALS: Ht 162.6 cm; Wt 61.2 kg
--- NOTE | 2018-10-14 20:10 | NUR ---
PT BIB FROM STREET C/O L LOWER EXTREMITY PAIN. PT ALSO C/O ETOH. PT AAOX3. RESPIRATIONS EVEN AND UNLABORED. NO ACUTE DISTRESS NOTED AT THIS TIME. PT AMBULATORY TO ER BED 13. WILL CONTINUE TO MONITOR.
[2018-10-15 00:31] VITALS: BP 122/87
--- NOTE | 2018-10-15 01:05 | NUR ---
Patient eloped from facility. ER MD and security notified. Pt ambulatory with a steady gait.
== END 2018-10-15 01:10 | disposition left against medical advice (07) ==
LOC: ER 20:09
DX: F10.129 Alcohol abuse with intoxication, unspecified (principal); M79.672 Pain in left foot; M79.671 Pain in right foot; Z93.3 Colostomy status; Z88.2 Allergy status to sulfonamides; Z88.0 Allergy status to penicillin; Z91.011 Allergy to milk products; Z79.899 Other long term (current) drug therapy; Y90.9 Presence of alcohol in blood, level not specified
CPT/HCPCS: 73630-TC; 82962-TC

== ENCOUNTER 2018-10-15 19:38 | Emergency (ER) | payer MEDICARE | END 2018-10-16 05:13 | disposition home or self-care (01) | DX: F10.229 Alcohol dependence with intoxication, unspecified (principal); K50.90 Crohn's disease, unspecified, without complications; Y90.9 Presence of alcohol in blood, level not specified; Z93.3 Colostomy status; Z86.19 Personal history of other infectious and parasitic diseases; Z88.2 Allergy status to sulfonamides; Z88.0 Allergy status to penicillin; Z91.011 Allergy to milk products ==

== ENCOUNTER 2018-10-22 13:06 | Emergency (ER) | payer MEDICARE ==
[~2018-10-22] VITALS: Ht 162.6 cm; Wt 68.0 kg
[2018-10-22 13:14] VITALS: BP 110/65
--- NOTE | 2018-10-22 22:30 | NUR ---
Patient discharged to home in stable condition. Written and verbal after care instructions given. Patient verbalizesd understanding of instruction. pt refused the list of resources and shleters available in the area. pt was provided w/ proper clothing and food. pt walked out w/ an steady gait and cognitively intact.
== END 2018-10-22 22:30 | disposition home or self-care (01) ==
LOC: ER 13:10
DX: F10.129 Alcohol abuse with intoxication, unspecified (principal); Y90.9 Presence of alcohol in blood, level not specified; Z59.0 Homelessness; Z93.3 Colostomy status; Z86.19 Personal history of other infectious and parasitic diseases; Z88.0 Allergy status to penicillin; Z88.2 Allergy status to sulfonamides; Z91.011 Allergy to milk products

== ENCOUNTER 2018-11-04 16:53 | Emergency (ER) | payer MEDICARE ==
[~2018-11-04] VITALS: Ht 162.6 cm; Wt 61.2 kg
[2018-11-04 16:57] VITALS: BP 128/80
--- NOTE | 2018-11-04 16:57 | NUR ---
AAOX3. PATIENT BIB RA FOR ALCOHOL INTOXICATION. PATIENT FOUND ON STREET WITH BOTTLE OF VODKHA. PATIENT IN ER BEING BELIGERENT TOWARDS STAFF. GAVE VERBAL ORDER FOR 4-POINT RESTRAINTS. WILL CONTINUE TO MONITOR PATIENT FOR SAFETY.
--- NOTE | 2018-11-04 17:05 | NUR ---
VERBAL ORDER FROM DR. RINALDI FOR 4 POINT RESTRAINT.
--- NOTE | 2018-11-04 20:00 | NUR ---
PER DR RINALDI PT IS CLEARED TO GO. PT REFUSED TO SIGN ANY PPW.
== END 2018-11-04 20:01 | disposition home or self-care (01) ==
LOC: ER 16:59
DX: F10.129 Alcohol abuse with intoxication, unspecified (principal); K50.90 Crohn's disease, unspecified, without complications; Y90.9 Presence of alcohol in blood, level not specified; Z93.3 Colostomy status; Z86.19 Personal history of other infectious and parasitic diseases; Z88.0 Allergy status to penicillin; Z88.2 Allergy status to sulfonamides; Z91.011 Allergy to milk products

== ENCOUNTER 2018-11-04 22:10 | Emergency (ER) | payer MEDICARE ==
[~2018-11-04] VITALS: Ht 162.6 cm; Wt 61.2 kg
[2018-11-04] MEDS ORDERED: LORAZEPAM INJ 2 MG/ML VIAL IM ONE (22:30)
[2018-11-04] MEDS ORDERED: LORAZEPAM INJ 2 MG/ML VIAL ONE (22:33)
--- NOTE | 2018-11-04 23:13 | NUR ---
"BIBRA[address] +ETOH, PT RECENTLY DC FROM [facility] ER" PT TO BED 7, VSS, NAD NOTED, PENDING MD SALEH
--- NOTE | 2018-11-05 00:07 | NUR ---
VITAL SIGNS UPDATED.
[2018-11-05 10:19] VITALS: BP 128/71
--- NOTE | 2018-11-05 10:20 | NUR ---
Patient given written and verbal discharge instructions. Patient verbalizes understanding of instructions. Patient is ambulatory with steady gait. Refuses offer of chcf placement. Patient given list of available shelters in surrounding area. tap card and food provided. left with appropriate clothing. in no apparent distress. denies any pain or discomfort, nor chest pain.
== END 2018-11-05 10:20 | disposition home or self-care (01) ==
LOC: ER 22:13
DX: F10.129 Alcohol abuse with intoxication, unspecified (principal); Z93.3 Colostomy status; Z86.19 Personal history of other infectious and parasitic diseases; Z88.0 Allergy status to penicillin; Z88.2 Allergy status to sulfonamides; Z91.011 Allergy to milk products; Z79.899 Other long term (current) drug therapy; Y90.9 Presence of alcohol in blood, level not specified
CPT/HCPCS: 96372; 99283; J2060

== ENCOUNTER 2018-11-07 19:09 | Emergency (ER) | payer MEDICARE ==
[~2018-11-07] VITALS: Ht 162.6 cm; Wt 54.4 kg
--- NOTE | 2018-11-07 19:16 | NUR ---
"BIBRA86 FROM STREETS FOR ETOH, BEHAVIORAL" PT AROUSABLE, APPEARS INTOXICATED, PT ON MONITOR, PT VSS, NAD NOTED, PENDING ER PROVIDER DELFINO
--- NOTE | 2018-11-07 21:06 | NUR ---
PT REFUSED ACCUCHECK; LANDEN EASON AWARE.
--- NOTE | 2018-11-07 23:59 | NUR ---
Patient is resting comfortably in bed with eyes closed. Easily aroused. VSS
--- NOTE | 2018-11-08 08:22 | NUR ---
Patient discharged to home in stable condition. Written and verbal after care instructions given. Patient verbalizes understanding of instruction.
[2018-11-08 08:23] VITALS: BP 119/71
== END 2018-11-08 08:24 | disposition home or self-care (01) ==
LOC: ER 19:10
DX: F10.229 Alcohol dependence with intoxication, unspecified (principal); Z93.3 Colostomy status; Z86.19 Personal history of other infectious and parasitic diseases; Z88.0 Allergy status to penicillin; Z88.2 Allergy status to sulfonamides; Z91.011 Allergy to milk products; Z79.899 Other long term (current) drug therapy; Y90.9 Presence of alcohol in blood, level not specified
CPT/HCPCS: 36415; G0480

== ENCOUNTER 2018-11-12 05:58 | Emergency (ER) | payer MEDICARE ==
[~2018-11-12] VITALS: Ht 162.6 cm; Wt 61.2 kg
--- NOTE | 2018-11-12 06:06 | NUR ---
PT BIBRA60 FROM [facility] FOR ETOH AND WALKING AROUND NAKED. PT DENIES PAIN AT THIS TIME. -SI, -HI. PT AOX2. NAD NOTED. RESP EVEN AND UNLABORED. PT ON MONITOR IN BED 15. WILL CONTINUE TO MONITOR.
--- NOTE | 2018-11-12 09:00 | NUR ---
PATIENT IN BED ASLEEP, EASILY ASROUSED BY VOICE. HOOKED TO MONITOR, KEPT SAFE AND COMFORTABLE.
--- NOTE | 2018-11-12 09:45 | NUR ---
FOOD TRAY PROVIDED, TOLERATING PO WELL.
--- NOTE | 2018-11-12 10:13 | NUR ---
Patient given written and verbal discharge instructions. Patient verbalizes understanding of instructions. Patient is ambulatory with steady gait. Refuses offer of detention placement. Patient given list of available shelters in surrounding area. Patient provided w proper clothing (shirt, pants and shoes), tap card provided. name band removed.
[2018-11-12 10:15] VITALS: BP 126/74
== END 2018-11-12 10:16 | disposition home or self-care (01) ==
LOC: ER 06:00
DX: F10.129 Alcohol abuse with intoxication, unspecified (principal); Z93.3 Colostomy status; Z86.19 Personal history of other infectious and parasitic diseases; Z88.0 Allergy status to penicillin; Z88.2 Allergy status to sulfonamides; Z91.011 Allergy to milk products; Z79.899 Other long term (current) drug therapy; Y90.9 Presence of alcohol in blood, level not specified

== ENCOUNTER 2018-11-14 12:54 | Emergency (ER) | payer MEDICARE ==
[~2018-11-14] VITALS: Ht 165.1 cm; Wt 63.5 kg
[2018-11-14 12:58] VITALS: BP 113/68
== END 2018-11-14 13:20 | disposition home or self-care (01) ==
LOC: ER 12:58
DX: Z43.3 Encounter for attention to colostomy (principal); F10.10 Alcohol abuse, uncomplicated; K50.90 Crohn's disease, unspecified, without complications; Y90.9 Presence of alcohol in blood, level not specified; Z86.19 Personal history of other infectious and parasitic diseases; Z88.0 Allergy status to penicillin; Z88.2 Allergy status to sulfonamides; Z91.011 Allergy to milk products

== ENCOUNTER 2018-11-16 16:38 | Emergency (ER) | payer MEDICARE ==
[~2018-11-16] VITALS: Ht 165.1 cm; Wt 57.6 kg
--- NOTE | 2018-11-16 16:50 | NUR ---
PT BIBA RA 86 From [facility] Parking lot "ETOH/Suicidal wants to kill self" PT IS AAOX2, NOT IN RESPIRATORY DISTRESS, HOOKED TO MONITOR, KEPT RESTED AND COMFORTABLE, WILL CONTINUE TO MONITOR,
--- NOTE | 2018-11-16 17:11 | NUR ---
SEEN AND EXAMINED BY MIKI ODONNELL.
--- NOTE | 2018-11-16 19:49 | NUR ---
ASSUMED CARE FOR PT AT THIS TIME. PT AMBULATORY WITH STEADY GAIT. VITAL SIGNS STABLE. SITTER AT BEDSIDE. WILL CONTINUE TO MONITOR
--- NOTE | 2018-11-16 21:48 | NUR ---
SPOKE WITH OFFICER GABRIELA ([id number]) AND INFORMED PT IS IN [facility] ER.
--- NOTE | 2018-11-16 22:10 | NUR ---
PT AMBULATORY WITH STEADY GAIT. AAOX4. DENIES SI/HI AT THIS TIME. ER PA AWARE
--- NOTE | 2018-11-16 22:23 | NUR ---
URINE COLLECTED AND SENT TO LAB
[2018-11-16 22:33] LABS: APPEARANCE,URINE Clear (CLEAR); BILIRUBIN,URINE Negative (NEGATIVE); BLOOD, URINE Trace-intact Ery/uL (NEGATIVE); COLOR,URINE Yellow (YELLOW); KETONES,URINE Negative (NEGATIVE); LEUKOCYTE ESTERASE ,URINE Small (NEGATIVE); NITRITE, URINE Negative (NEGATIVE); PROTEIN,URINE Negative (NEGATIVE); UGLUCOSE Negative (NEGATIVE); UROBILINOGEN,URINE 0.2 EU/dL (0.2)
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
[2018-11-16 22:37] VITALS: BP 127/79
[2018-11-16 22:49] LABS: BACTERIA,URINE Few /HPF (None Seen); SQUAMOUS EPITHELIAL CELL,UR Few /HPF (None Seen)
== END 2018-11-16 22:39 | disposition home or self-care (01) ==
LOC: ER 16:48
DX: R45.851 Suicidal ideations (principal); F10.129 Alcohol abuse with intoxication, unspecified; K50.90 Crohn's disease, unspecified, without complications; Y90.9 Presence of alcohol in blood, level not specified; Z86.19 Personal history of other infectious and parasitic diseases; Z93.3 Colostomy status; Z88.0 Allergy status to penicillin; Z88.2 Allergy status to sulfonamides; Z91.011 Allergy to milk products
CPT/HCPCS: 80305; 81000-TC; 87086-TC

== ENCOUNTER 2018-11-30 16:04 | Emergency (ER) | payer MEDICARE ==
[~2018-11-30] VITALS: Ht 165.1 cm; Wt 61.2 kg
[2018-11-30 16:18] VITALS: BP 100/60
--- NOTE | 2018-11-30 16:23 | NUR ---
CALLED OFFICER BRANDY [phone] AND LEFT A MESSAGE
--- NOTE | 2018-11-30 16:23 | NUR ---
PT BROUGHT IN FOR ETOH INTOXICATION BY [facility]
--- NOTE | 2018-11-30 16:27 | NUR ---
CALLED OFFICER ZAC AT [phone]
--- NOTE | 2018-11-30 16:30 | NUR ---
CALLED [phone] [facility] OFFICE NUMBER. SPOKE TO OFFICER
--- NOTE | 2018-11-30 16:45 | NUR ---
FINISHED SPEAKING TO EMBROIDERY FINISHER CORI AND OFFICER AND FILED ANOTHER REPORT. THE PEOPLE WHO ARE ON HER CASE ARE NOT IN THE OFFICE.
--- NOTE | 2018-11-30 18:35 | NUR ---
AMBULATORY WITH STEADY GAIT. SHE WAS PROVIDED FOOD, CLEANED, AND COLOSTOMY BAG CHANGED.
--- NOTE | 2018-11-30 18:38 | NUR ---
PT AMBULATORY WITH STEADY GAIT. ELOPED FROM EMERGENCY DEPARTMENT
== END 2018-11-30 19:59 | disposition left against medical advice (07) ==
LOC: ER 16:08
DX: R41.82 Altered mental status, unspecified (principal); F10.10 Alcohol abuse, uncomplicated; K50.90 Crohn's disease, unspecified, without complications; Y90.9 Presence of alcohol in blood, level not specified; Z86.19 Personal history of other infectious and parasitic diseases; Z59.0 Homelessness; Z93.3 Colostomy status; Z88.0 Allergy status to penicillin; Z88.2 Allergy status to sulfonamides; Z91.011 Allergy to milk products

== ENCOUNTER 2018-11-30 23:38 | Emergency (ER) | payer MEDICARE ==
[~2018-11-30] VITALS: Ht 165.1 cm; Wt 61.2 kg
--- NOTE | 2018-11-30 23:46 | NUR ---
SPOKE WITH OFFICER JEVON Choe AND INFORMED PT RETURNED TO ER FOR SECOND TIME TODAY
--- NOTE | 2018-12-01 00:32 | NUR ---
BIBRA C/O: ETOH , MISAEL COLOSTOMY BAG TO ER BED 14 FOR OBS
[2018-12-01 05:28] VITALS: BP 127/74
--- NOTE | 2018-12-01 06:09 | NUR ---
Patient discharged to home in stable condition. Written and verbal after care instructions given. Patient verbalizes understanding of instruction.PT AMBULATORY W/O ASSISTANCE
--- NOTE | 2018-12-01 06:09 | NUR ---
Patient discharged to home in stable condition. Written and verbal after care instructions given. Patient verbalizes understanding of instruction.
== END 2018-12-01 06:10 | disposition home or self-care (01) ==
LOC: ER 23:39
DX: F10.129 Alcohol abuse with intoxication, unspecified (principal); K50.90 Crohn's disease, unspecified, without complications; Y90.9 Presence of alcohol in blood, level not specified; Z93.3 Colostomy status; Z86.19 Personal history of other infectious and parasitic diseases; Z88.0 Allergy status to penicillin; Z88.2 Allergy status to sulfonamides; Z91.011 Allergy to milk products

== ENCOUNTER 2018-12-01 22:37 | Emergency (ER) | payer MEDICARE ==
[~2018-12-01] VITALS: Ht 165.1 cm; Wt 61.2 kg
--- NOTE | 2018-12-01 22:44 | NUR ---
PT BIBRA FROM STREET +ETOH. PT AWAKE, APPEARS INTOXICATED. VITALS SIGNS STABLE. NO ACUTE DISTRESS NOTED AT THIS TIME. PLACED IN ER BED 15, WILL CONTINUE TO MONITOR.
--- NOTE | 2018-12-01 22:46 | NUR ---
CALLED JAG POWDER BLENDER LAURIE FRANK. NO RESPONSE. MESSAGE LEFT
--- NOTE | 2018-12-02 05:13 | NUR ---
ON PHONE WITH [employer] OFFICE. WAS INFORMED "WILL BE FILING INCIDENT REPORT AND REFERRING IT TO OFFICER LAURIE FRANK".
--- NOTE | 2018-12-02 05:20 | NUR ---
JAG REPORT NUMBER #[id number] OFFICER GLEASON
[2018-12-02 06:18] VITALS: BP 122/78
--- NOTE | 2018-12-02 06:18 | NUR ---
Patient discharged to home in stable condition. Written and verbal after care instructions given. Patient verbalizes understanding of instruction. ambulatory. aox4. vss.
== END 2018-12-02 06:19 | disposition home or self-care (01) ==
LOC: ER 22:40
DX: F10.129 Alcohol abuse with intoxication, unspecified (principal); K50.90 Crohn's disease, unspecified, without complications; Y90.9 Presence of alcohol in blood, level not specified; Z93.3 Colostomy status; Z86.19 Personal history of other infectious and parasitic diseases; Z88.0 Allergy status to penicillin; Z88.2 Allergy status to sulfonamides; Z91.011 Allergy to milk products
CPT/HCPCS: 82962-TC

== ENCOUNTER 2020-07-21 08:55 | Emergency (ER) | payer MEDICARE ==
[~2020-07-21] VITALS: Ht 165.1 cm; Wt 62.6 kg
--- NOTE | 2020-07-21 09:00 | NUR ---
BIB RA 78 FROM A LOCAL [facility]ALPHS,"DRANK A WHOLE BOTTLE OF VODKA AND PASSED OUT". THE PATIENT IS ALERT AND ORIENTED TO SELF. DENIES PAIN. IN ROOM AIR AND DENIES SOB. RESPIRATION REGULAR AND UNLABORED. WILL CONTINUE TO MONITOR THE PATIENT.
[2020-07-21] MEDS ORDERED: HALOPERIDOL LACTATE INJ 5 MG/ML VIAL IM ONE (09:30)
[2020-07-21] MEDS ORDERED: HALOPERIDOL LACTATE INJ 5 MG/ML VIAL ONE (09:33)
[2020-07-21 09:40] LABS: BASOPHILS % (AUTO) 0.5 % (0.0-2.0); EOSINOPHILS % (AUTO) 0.8 % (0.0-6.0); HEMATOCRIT 44 % (33-45); HEMOGLOBIN 14.9 g/dL (11.5-14.8); LYMPHOCYTES # (AUTO) 4.5 /CMM (0.8-4.8); LYMPHOCYTES % (AUTO) 56.4 % (20.0-44.0); MEAN CORPUSCULAR HGB CONC 34 g/dl (31.0-36.0); MEAN CORPUSCULAR VOLUME 94 fL (82-100); MONOCYTES # (AUTO) 0.8 /CMM (0.1-1.30); MONOCYTES % (AUTO) 10.6 % (2.0-12.0); NEUTROPHILS # (AUTO) 2.5 /CMM (1.8-8.9); NEUTROPHILS % (AUTO) 31.7 % (43.0-81.0); PLATELET COUNT (AUTO) 177 /CMM (150-450); RED BLOOD CELL COUNT(AUTO) 4.69 MIL/uL (4.0-5.2)
--- NOTE | 2020-07-21 09:45 | NUR ---
URINE COLLECTED AND SENT TO THE LAB
[2020-07-21 09:49] LABS: CALCIUM, SERUM 8.6 mg/dL (8.5-10.1); CREATININE 0.6 mg/dL (0.6-1.3); POTASSIUM 3.8 mmol/L (3.5-5.1)
[2020-07-21 09:51] LABS: BILIRUBIN,URINE Negative (NEGATIVE); COLOR,URINE YELLOW (YELLOW); LEUKOCYTE ESTERASE ,URINE Negative (NEGATIVE); NITRITE, URINE Negative (NEGATIVE); PROTEIN,URINE Negative (NEGATIVE); UGLUCOSE Negative (NEGATIVE); UROBILINOGEN,URINE 0.2 EU/dL (0.2)
[2020-07-21 09:52] LABS: BACTERIA,URINE Few /HPF (None Seen); SQUAMOUS EPITHELIAL CELL,UR Few /HPF (None Seen); WBC,URINE 0-2 /HPF (0-3)
[2020-07-21 09:56] LABS: ALBUMIN 4.3 g/dL (3.4-5.0); BILIRUBIN,DIRECT 0.2 mg/dL (0.0-0.2); BILIRUBIN,TOTAL 0.4 mg/dL (0.2-1.0); TOTAL PROTEIN, SERUM 7.9 g/dL (6.4-8.2)
--- NOTE | 2020-07-21 15:07 | NUR ---
Hypoid Gear Generator note: regulatory services consultant consult requested for homelessness and ETOH use. Patient is a 60-year-old, female. Per chart, patient was brought in by ambulance on 07/21/20 for ETOH use. SW was unable to assess patient as patient was unarousable. SW filed homeless and substance use resources and homeless waiver in the patients chart and notified RN Chandler. PLAN: ED industrial staff nurse to provide homeless and substance resources and have patient sign homeless waiver when patient is interviewable. No further SS intervention, however, SW will remain available as needed.
--- NOTE | 2020-07-21 17:06 | NUR ---
THE PATIENT AWAKE. DENIES ANY DISTRESS AT THIS TIME.
--- NOTE | 2020-07-21 17:35 | NUR ---
Patient discharged to home in stable condition. Written and verbal after care instructions given. Patient verbalizes understanding of instruction.
--- NOTE | 2020-07-21 18:00 | NUR ---
PATIENT A/OX4, AMBULATORY WITH STEADY GAIT. PATIENT IS REQUESTING TO BE DISCHARGED.
[2020-07-21 19:07] VITALS: BP 126/78
== END 2020-07-21 19:09 | disposition home or self-care (01) ==
LOC: ER 08:59
DX: F10.129 Alcohol abuse with intoxication, unspecified (principal); Y90.8 Blood alcohol level of 240 mg/100 ml or more; Z86.19 Personal history of other infectious and parasitic diseases; Z59.0 Homelessness; Z93.3 Colostomy status; Z88.0 Allergy status to penicillin; Z88.2 Allergy status to sulfonamides; Z91.011 Allergy to milk products; Z60.2 Problems related to living alone; Z79.899 Other long term (current) drug therapy
CPT/HCPCS: 36415; 73564; 80048; 80076; 80143; 80307; 80320; 81001; 85025; 96372; 99284; J1630; G0480

== ENCOUNTER 2020-07-23 19:52 | Emergency (ER) | payer MEDICARE, OTHER ==
[~2020-07-23] VITALS: Ht 165.1 cm; Wt 62.6 kg
--- NOTE | 2020-07-23 20:01 | NUR ---
PT AMMBULATORY WITH STEADY GAIT. [id number] FROM STRE[address] FOR ETOH; PT AWAKE/ALERT UPON ARRIVAL. PT PLACED IN BED 14 ON MONITOR AND PULSE OX.
--- NOTE | 2020-07-23 20:11 | NUR ---
PT REFUSING BLOOD WORK. REQUESTING TO LEAVE ED. ER AWARE.
[2020-07-23 20:46] VITALS: BP 112/76
[2020-07-23] MEDS: IV NS 0.9% 1,000 ML BAG IV ONE (20:46)
== END 2020-07-23 20:47 | disposition home or self-care (01) ==
LOC: ER 19:54
DX: F10.129 Alcohol abuse with intoxication, unspecified (principal); Z93.3 Colostomy status; Z88.0 Allergy status to penicillin; Z88.2 Allergy status to sulfonamides; Z91.011 Allergy to milk products; Z60.2 Problems related to living alone; Z79.899 Other long term (current) drug therapy; Y90.9 Presence of alcohol in blood, level not specified

== ENCOUNTER 2020-07-31 11:00 | Emergency (ER) | payer MEDICARE, OTHER ==
[~2020-07-31] VITALS: Ht 165.1 cm; Wt 62.6 kg
--- NOTE | 2020-07-31 11:00 | NUR ---
PT BIBRA [address] C/O ETOH. PT IS AAOX3, NOT IN RESPIRATORY DISTRESS, HOOKED TO DIRECTOR BUSINESS TRAVEL, KEPT RESTED AND COMFORTABLE. WILL CONTINUE TO MONITOR.
--- NOTE | 2020-07-31 12:00 | NUR ---
PT SLEEPING AT THIS TIME. EASY TO AROUSED. NO S/O ANY ACUTE DISTRESS. WILL CONTINUE TO MONITOR
--- NOTE | 2020-07-31 12:30 | NUR ---
PT REFUSED LAUNCH
--- NOTE | 2020-07-31 14:00 | NUR ---
PT AMBULATES TO RESTROOM WITH STEADY GAIT. DENIES PAIN. WILL CONTINUE TO MONITOR
--- NOTE | 2020-07-31 14:45 | NUR ---
Patient eloped from facility. ER MD notified.
[2020-07-31 15:13] VITALS: BP 121/72
== END 2020-07-31 15:13 | disposition left against medical advice (07) ==
LOC: ER 11:02
DX: F10.129 Alcohol abuse with intoxication, unspecified (principal); Z93.3 Colostomy status; Z88.0 Allergy status to penicillin; Z88.2 Allergy status to sulfonamides; Z91.011 Allergy to milk products; Z60.2 Problems related to living alone; Z79.899 Other long term (current) drug therapy; Y90.9 Presence of alcohol in blood, level not specified

== ENCOUNTER 2020-08-01 10:44 | Emergency (ER) | payer MEDICARE, OTHER ==
[~2020-08-01] VITALS: Ht 165.1 cm; Wt 62.6 kg
--- NOTE | 2020-08-01 10:44 | NUR ---
PT BIBRA [address] C/O ETOH. PT IS AAOX3, NOT IN RESPIRATORY DISTRESS, V/S STABLE, KEPT RESTED AND COMFORTABLE. WILL COTNINUE TO MONITOR.
--- NOTE | 2020-08-01 11:02 | NUR ---
PT WHEELED TO CT SCAN VIA Youneeq.
--- NOTE | 2020-08-01 12:27 | NUR ---
Patient given written and verbal discharge instructions. Patient verbalizes understanding of instructions. Patient is ambulatory with steady gait. Refuses offer of correction placement. Patient given list of available shelters in surrounding area.
[2020-08-01 12:29] VITALS: BP 131/73
== END 2020-08-01 12:29 | disposition home or self-care (01) ==
LOC: ER 10:46
DX: F10.129 Alcohol abuse with intoxication, unspecified (principal); R41.82 Altered mental status, unspecified; Z93.3 Colostomy status; Z88.0 Allergy status to penicillin; Z88.2 Allergy status to sulfonamides; Z91.011 Allergy to milk products; Z60.2 Problems related to living alone; Z79.899 Other long term (current) drug therapy; Y90.9 Presence of alcohol in blood, level not specified
CPT/HCPCS: 70450-TC

== ENCOUNTER 2020-08-01 15:35 | Emergency (ER) | payer MEDICARE, OTHER ==
[~2020-08-01] VITALS: Ht 167.6 cm; Wt 62.6 kg
[2020-08-01 15:40] VITALS: BP 102/70
--- NOTE | 2020-08-01 16:08 | NUR ---
PT PROVIDED W/ NEW COLOSTOMY BAG.
--- NOTE | 2020-08-01 16:27 | NUR ---
DISCHARGE. STABLE CONDITION.
== END 2020-08-01 16:28 | disposition home or self-care (01) ==
LOC: ER 15:41
DX: F10.129 Alcohol abuse with intoxication, unspecified (principal); F17.200 Nicotine dependence, unspecified, uncomplicated; Z93.3 Colostomy status; Z59.0 Homelessness; Z88.0 Allergy status to penicillin; Z88.2 Allergy status to sulfonamides; Z91.011 Allergy to milk products; Z60.2 Problems related to living alone; Z79.899 Other long term (current) drug therapy; Y90.9 Presence of alcohol in blood, level not specified
CPT/HCPCS: 82962-TC

== ENCOUNTER 2020-08-01 21:36 | Emergency (ER) | payer MEDICARE, OTHER ==
[~2020-08-01] VITALS: Ht 167.6 cm; Wt 61.2 kg
[2020-08-01 21:44] VITALS: BP 132/67
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
== END 2020-08-01 22:13 | disposition left against medical advice (07) ==
LOC: ER 21:38
DX: F10.129 Alcohol abuse with intoxication, unspecified (principal); Z93.3 Colostomy status; Z88.0 Allergy status to penicillin; Z88.2 Allergy status to sulfonamides; Z91.011 Allergy to milk products; Z60.2 Problems related to living alone; Z79.899 Other long term (current) drug therapy; Y90.9 Presence of alcohol in blood, level not specified

== ENCOUNTER 2020-08-02 12:46 | Emergency (ER) | payer MEDICARE, OTHER ==
[~2020-08-02] VITALS: Ht 167.6 cm; Wt 54.9 kg
--- NOTE | 2020-08-02 13:15 | NUR ---
HAKAN FROM [employer] CAUSING A DISTURBANCE, POSSIBLE ETOH. YELLING AND AGITATED HEAD MEN'S TENNIS COACH. SEEN MULTIPLE TIME IN ED FOR SAME REASON. NOTED W/ COLOSTOMY BAG. ROOMED TO ED BWED 13. STABLE VITALS.
--- NOTE | 2020-08-02 13:20 | NUR ---
DR HARRISON AT BEDSIDE FOR EVAL.
[2020-08-02] MEDS ORDERED: HALOPERIDOL LACTATE INJ 5 MG/ML VIAL ONE (13:51)
[2020-08-02] MEDS ORDERED: diphenhydrAMINE HCL 50 MG/ML VIAL ONE (13:55)
--- NOTE | 2020-08-02 13:56 | NUR ---
PT IS AGITATED AND YELLING, RESTLESS. LAW AWARE. MEDICATED ORDERED.
[2020-08-02] MEDS ORDERED: HALOPERIDOL LACTATE INJ 5 MG/ML VIAL IM ONE (14:00)
[2020-08-02] MEDS ORDERED: diphenhydrAMINE HCL 50 MG/ML VIAL IM ONE (14:00)
--- NOTE | 2020-08-02 14:57 | NUR ---
"Natural Resources Faculty Member note: support services manager consult for homelessness and ETOH use. Patient is a 60-year-old, female. SW was unable to interview or arouse the patient as patient was given Benadryl by ED physician, Dr. Calhoun. Prior to interview, SW witnessed patient yelling angrily at ED staff and asking for staff to remove her restraints. SINDY filed the homeless waiver and homeless and substance use resources in the patient's discharge packet. SINDY notified ED RN Fredi. Addendum: 08/02/20 at 1507 by MIKE CALLAHAN SW will remain available as needed. RESOURCES: Year-round shelters: [facility] [address] [place] [address] ; [place] [facility] [place] [address] [place] [address]; [place] [facility] [id number] [facility] [address] SPA 4 | [facility] [place] Provider: First to Serve Address: [address], [address] # of Beds: 48 Population Served: [facility] Provider: First to Serve Address: [address] [facility], [address] # of Beds: 73 Population Served: [facility] SPA 6 | [facility] Provider: Home at Last Address: [address] [place] [address], [address] # of Beds: 63 Population Served: [facility] SPA 3 | [facility] Provider: Volunteers ewa [place] Address: [address] [facility] [place], [address] # of Beds: 75 Population Served: [facility] 8 | [facility] Provider: Volunteers ewa [place] Address: [address] [facility], [address] # of Beds: 80 Population Served: [facility] SPA 1 | [facility] Provider: Volunteers ewa [place] Address: [address] [place] [address], [address] # of Beds: 85 Population Served: [facility] 2 | [facility] Provider: Nicolette mcneil [facility] Address: Confidential (please call for location) # of Beds: 52 Population Served: [facility] 4 | [facility] Provider: [facility] Address: [address] [place] [address] # of Beds: 49 Population Served: [facility] Provider: First To Serve Address: [address] [place] [address], [facility] # of Beds: 27 Population Served: Abhishek Hygiene: [facility]: [address] [place] [facility] ; [place] [facility] [address] [facility] ; [facility] [address] Amilcar michael Tsaile Gian . Food Resources: [place] [facility] at [facility]- [address] [facility]. [place]; Meet Each Need with Dignity ([facility]) [address] [facility]; [facility] Food Pantry 0641 D LoMercyOne [facility]; [facility] [address] [facility] [place]. Mental Health resources provided: [facility] [address] [place] [address] ; [facility] [place] Inc[facility] [address] [facility] [address], [place], [place] [phone] ; [place] Don [facility] [address] [place] [address] ; [facility] [address] [place] [address] Healthcare Clinics: [facility] [address] [facility], [address] [place]. [place] ; [facility] [address] [facility] [address] [place] [address]; [facility] [address] [facility] [phone] Counseling--Outpatient [facility] [address] [facility], [address] [place], [place] [address] (Specializes in in-depth psychotherapy for emotional distress: anxiety, depression, interpersonal conflicts, life transitions, childhood abuse) PSYCHIATRIC OUTPATIENT SERVICES [facility] Partial Hospitalization and Intensive Outpatient Program (Managed Care and [place] Only) [address] [facility]. [facility] [address] [facility] Partial Hospitalization and Outpatient Program [address]3933 [facility]. [address] [place] [address] [facility] Partial Hospitalization and Outpatient Program [address] [facility]. [place], [place] [phone] [facility] [place] [facility] [address] [facility]. [address] [place], [place] [address] [facility] Partial Hospitalization and Outpatient Program [address] [place], [place] [phone] Substance use resources provided included: [facility] Substance Abuse Self-Helpline (SASH) ; CRI -HELP [address] [facility] [address] ; [facility] [address] [facility] [address] ; [facility] [address] [facility] [address] ; [facility] 4940 [facility] [address] ; [facility]ically [facility] [address] [facility] [phone] ; [facility] [place]; [facility]Help [place]; [facility]; Alcoholics Anonymous -SFV"
--- NOTE | 2020-08-02 16:50 | NUR ---
PROVIDED W/ NEW COLOSTOMY BAG.
--- NOTE | 2020-08-02 18:39 | NUR ---
PT PROVIDED W/ NEW CLOTHING, MEDICALLY CLEARED BY DR RINALDI. DISCHARGE IN STABLE CONDITION.
[2020-08-02 18:46] VITALS: BP 115/84
== END 2020-08-02 18:47 | disposition home or self-care (01) ==
LOC: ER 12:50
DX: F10.129 Alcohol abuse with intoxication, unspecified (principal); Z93.3 Colostomy status; Z88.0 Allergy status to penicillin; Z88.2 Allergy status to sulfonamides; Z91.011 Allergy to milk products; Z60.2 Problems related to living alone; Z79.899 Other long term (current) drug therapy; Y90.9 Presence of alcohol in blood, level not specified
CPT/HCPCS: 96372 ×2; 99284; J1200; J1630

== ENCOUNTER → 2020-08-04 | Emergency (ER) | payer MEDICARE, OTHER ==
[~2020-08-04] VITALS: Ht 165.1 cm; Wt 55.8 kg
--- NOTE | 2020-08-04 13:15 | NUR ---
THE PATIENT IS [id number], FROM STREET, ADMITS DRINKING ETOH. ALERT AND ORIENTED X3 WITH FORGETFULLNESS. IN ROOM AIR AND DENIES SOB. RESPIRATION REGULAR AND UNLABORED. DENIES PAIN. THE PATIENT HAS COLOSTOMY BAG. WILL CONTINUE TO MONITOR THE PATIENT.
--- NOTE | 2020-08-04 13:25 | NUR ---
"Hairspring Vibrator consult: information services vice president consult requested for homelessness and ETOH use. Patient is a 60-year-old, female. SW met with patient at her bedside in the emergency department. Patient was alert and oriented x4. Patient presented irritable and disheveled. SW observed that the patient is ambulatory. Per chart, patient was brought in by ambulance from the street on 08/04/20 for ETOH use. Patient stated that she is currently homeless and receives SSI as a source of income. SW asked patient if she has a history of substance use and patient stated, I am an alcoholic. Patient reported that she drinks a pint of alcohol per day. Patient denied drug use. SW assessed patients history of mental illness and patient denied history of mental illness. Patient denied suicidal or homicidal ideation. SW offered the patient homeless and substance use resources. Patient accepted the resources and thanked SW. Patient signed homeless waiver and SW filed waiver in the patients chart. SW discussed discharge plans with the patient and patient stated that she will return to her prior living arrangement on the street. Patient stated that she plans to use public transportation. PLAN: Patient will discharge to her prior living arrangement on the street. No further SS intervention, however, SW will remain available as needed. RESOURCES: Year-round shelters: [facility] [place] [address] [address] ; [place] [facility] [place] [address] [place] [address]; [place] [facility] [id number] [facility] [address] SPA 4 | [facility] Recreation Gray Provider: First to Serve Address: [address], [address] # of Beds: 48 Population Served: [facility] Provider: First to Serve Address: 7600 [facility], [address] # of Beds: 73 Population Served: [facility] 6 | [facility] Provider: Home at Last Address: [address] [facility], [address] # of Beds: 63 Population Served: [facility] 3 | [facility] Provider: Ally of [facility] Address: [address] [place] [address], [address] # of Beds: 75 Population Served: [facility] SPA 8 | [facility] Provider: Ally of [place] Address: [address] [facility], [address] # of Beds: 80 Population Served: [facility] SPA 1 | [facility] Provider: Ally of [place] Address: [address] [place] [address], [address] # of Beds: 85 Population Served: [facility] 2 | [facility] Provider: [facility] Address: Confidential (please call for location) # of Beds: 52 Population Served: [facility] 4 | [facility] Provider: Flor Alexandra Address: [address] [place] [address], [facility] # of Beds: 49 Population Served: [facility] Provider: First To Serve Address: [address] [place] [address] # of Beds: 27 Population Served: [facility] Hygiene: [facility]: [address] [facility] ; [place] [facility] [address] [facility] ; [facility] 2991 [facility] . Food Resources: [place] Food Pantry at [facility]- 5700 [facility]; Meet Each Need with Dignity ([facility]) [address] [facility]; [facility] Food Pantry 2405 [facility]; [facility] 8974 [facility]. Mental Health resources provided: [facility] [address] [place] [address] ; [facility], Inc[facility] [address] [facility] [address], [place] [address] ; [facility] [address], [place] [address] ; [facility] [place], [place] [phone] Healthcare Clinics: [facility] [address] [facility], [address] [place]. [place] ; [facility] [address] [facility] [address] [place] [address]; [facility] [address] [facility]. [place] [address] [phone] Counseling--Outpatient [facility] [address] [facility] [place] [address] (Specializes in in-depth psychotherapy for emotional distress: anxiety, depression, interpersonal conflicts, life transitions, childhood abuse) PSYCHIATRIC OUTPATIENT SERVICES [facility] Partial Hospitalization and Intensive Outpatient Program (Managed Care and [place] Only) [address] [place] [facility] Health [facility] 855408 [facility] Partial Hospitalization and Outpatient Program [address] [place] [facility]. [address] [place], [place] [id number] [facility] Partial Hospitalization and Outpatient Program [address] [facility]. [place], [place] [phone] [facility] [address] [facility] [address] [place], [place] [id number] [facility] Partial Hospitalization and Outpatient Program [address] [place], [place] [phone] Substance use resources provided included: [facility] Substance Abuse Self-Helpline ([facility]) ; CRI -HELP [address] [facility] [address] ; [facility] [address] [facility] [address] ; [facility] 400 [facility] [address] ; [facility] [address] [facility] [address] ; [facility] [address] [facility] [phone] ; [facility] [place]; Cri-Help [place]; [facility] [place]; Alcoholics Anonymous -SFV"
[2020-08-04 14:42] VITALS: BP 140/65
--- NOTE | 2020-08-04 14:43 | NUR ---
PATIENT A/OX4, AMBULATORY WITH STEADY GAIT. COLOSTOMY BAG CHANGED, PATIENT KEPT INSISTING ON LEAVING. DR. STALLWORTH AT BEDSIDE RE-ASSESSED THE PATIENT AND CLEARED HER. PATIENT SEEN BY BULL GANG SUPERVISOR. SIGNED THE HOMELESS WAIVER.
--- NOTE | 2020-08-04 14:45 | NUR ---
UNABLE TO DEPART DUE TO MEDITECH ERROR.
== END | disposition home or self-care (01) ==
LOC: ER 19:21
DX: F10.129 Alcohol abuse with intoxication, unspecified (principal); Y90.9 Presence of alcohol in blood, level not specified; Z93.3 Colostomy status; Z86.19 Personal history of other infectious and parasitic diseases; Z88.0 Allergy status to penicillin; Z88.2 Allergy status to sulfonamides; Z91.011 Allergy to milk products; Z60.2 Problems related to living alone; Z79.899 Other long term (current) drug therapy

== ENCOUNTER 2020-08-06 03:38 | Emergency (ER) | payer MEDICARE, OTHER ==
[~2020-08-06] VITALS: Ht 165.1 cm; Wt 55.8 kg
[2020-08-06 03:38] VITALS: BP 120/74
== END 2020-08-06 04:01 | disposition home or self-care (01) ==
LOC: ER 03:43
DX: Z43.3 Encounter for attention to colostomy (principal); Z88.0 Allergy status to penicillin; Z88.2 Allergy status to sulfonamides; Z91.011 Allergy to milk products; Z60.2 Problems related to living alone

== ENCOUNTER 2020-08-09 11:58 | Emergency (ER) | payer MEDICARE, OTHER ==
[~2020-08-09] VITALS: Ht 165.1 cm; Wt 56.7 kg
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
--- NOTE | 2020-08-09 12:14 | NUR ---
PT'S COLOSTOMY BAG REPLACED.
--- NOTE | 2020-08-09 12:45 | NUR ---
PT PROVIDED W/ LUNCH TRAY.
[2020-08-09 14:02] VITALS: BP 141/91
--- NOTE | 2020-08-09 15:40 | NUR ---
"Travel Sales Consultant consult: financial services agent consult requested for homelessness and alcohol use. Patient is a 60-year-old, female. SINDY met with patient at his bedside in the med-surg unit. Patient was alert and oriented x3, person, place and time. Patient presented calm and was resting. Per chart, patient was brought in to the hospital by ambulance on 08/09/20 for ETOH use. Patient is currently homeless. Patient stated that her current source of income is [employer]. SW assessed patient's history of substance use and patient reported recent alcohol use. Patient reported that her alcohol use is daily and she drinks about a pint per day. Patient denied drug use. Patient denied history of mental illness. Patient denied current suicidal and homicidal ideation. SW offered patient homeless and substance use resources. Patient accepted the resources and thanked SW. Patient signed the homeless waiver and SW filed waiver in the patient's chart. SW discussed discharge plan with the patient and patient stated that she will return to her prior living arrangement on the street. Patient stated that she can use public transportation. PLAN: Patient will return to her prior living arrangement on the street. No further SS intervention at this time, however, SW will remain available as needed. Travel Sales Consultant consult: financial services agent consult requested for suicidal ideation with a plan and homelessness. Patient is 32-year-old, male. Per chart, patient was brought in by ambulance for suicidal ideation with a plan to jump off a bridge. Patient is currently on a 5150 hold for danger to self. Crisis team has been previously notified and assessment is pending. SW met with patient at his bedside in the emergency department. Patient was alert and oriented x4. Patient was resting and on restraints. Patient stated that he is currently living at a sober living facility, [address] ([address] [facility] [address], [place] [address]; [phone]). Patient provided SW with his contact number, . Patient reported that he has been homeless for the last six years and was recently accepted to the sober living facility a week ago. Patient plans to return to this facility. SW assessed patients suicidal ideation and patient stated that he is currently feeling suicidal with a plan to jump off bridge. SW asked patient if he would consider going to an inpatient psychiatric hospital for further treatment. Patient agreed with this plan. SINDY will fax clinicals to [facility] to initiate placement. SW asked patient if he has access to social support and patient stated that he is in contact with his significant other. SW asked patient about his current source of income and patient stated that he is currently receiving SSI and food stamps. SW assessed patients history of substance use. Per patients toxicology report, patient is positive for amphetamine and cannabinoids. Patient reported that his last amphetamine use was three days ago and denied any other substance use history. Patient stated that his amphetamine use was daily. SW assessed patients history of mental illness and patient stated that he has a history of Bipolar disorder, Schizoaffective disorder and Depression. Patient stated that he obtains his psychiatric medications from [facility]. Patient is currently taking Abilify and Seroquel. Patient stated that he has a history of auditory hallucinations which he described as, I hear stupid things like I am the devils son. Patient denies current hallucinations or delusions. SW offered patient resources for homelessness and substance use. Patient accepted the resources and thanked SW. Patient signed homeless waiver and SW filed waiver in the patients chart. SW will fax clinicals to [facility] for review. PLAN: SW will fax clinicals to [facility] for review. Patient is currently on a 5150 hold and is pending assessment by crisis team. SW will remain available as needed. RESOURCES: Year-round shelters: [facility] [address] [place] [place] [address] ; [facility] [address] [place] [address]; [facility] [id number] [facility] [address] SPA 4 | [facility] Recreation Bells Provider: First to Serve Address: [address], [address] # of Beds: 48 Population Served: [facility] Provider: First to Serve Address: [address] [facility], [address] # of Beds: 73 Population Served: [facility] 6 | [facility] Provider: Home at Last Address: [address] [facility], [address] # of Beds: 63 Population Served: [facility]ed SPA 3 | [facility] Provider: [facility] e[place] Address: [address] [facility], [place], [address] # of Beds: 75 Population Served: [facility] 8 | [facility] Provider: [facility] [place] Address: [address] [facility], [address] # of Beds: 80 Population Served: [facility] 1 | [facility] Provider: [facility] Address: [address] [place] [address], [address] # of Beds: 85 Population Served: [facility] 2 | [facility] Provider: Nicolette mcneil [facility] Address: Confidential (please call for location) # of Beds: 52 Population Served: [facility] 4 | [facility] Provider: [facility] Address: [address] [place] [address], [facility] # of Beds: 49 Population Served: [facility] Provider: First To Serve Address: [address] [place] [address], [facility] # of Beds: 27 Population Served: Abhishek Hygiene: [facility] [facility]: [address] [facility] ; [facility] [address] [facility] ; [facility] [address] [place] . Food Resources: [place] [facility] at [facility]- [address] [facility]. [place]; Meet Each Need with Dignity ([facility]) [address] [facility]; [facility] Food [facility]ry 98[address] [facility] [place]; [facility] 6307 [facility]. Mental Health resources provided: [facility] [address] [place] [address] ; [facility] Health [facility]ells[facility] [employer] [address] [facility] [address], [place], [place] [id number] ; [facility] [address] [place] [address] ; [facility] [address] [place], [place] [address] Healthcare Clinics: [facility] 6551 [facility], [address] [place]. [place] ; [facility] [address] [facility] [address] [place] [address]; [facility] [address] [facility] [phone] Counseling--Outpatient [facility] [address] [facility], [address] [place], [place] [address] (Specializes in in-depth psychotherapy for emotional distress: anxiety, depression, interpersonal conflicts, life transitions, childhood abuse) PSYCHIATRIC OUTPATIENT SERVICES [facility] Partial Hospitalization and Intensive Outpatient Program (Managed Care and [place] Only) [address] [facility]. [facility] [address]35 [facility] Partial Hospitalization and Outpatient Program 7[address]39 [facility]. [address] [place], [place] [phone] [facility] Partial Hospitalization and Outpatient Program [address] [facility]. [place], [place] [phone] [facility] Health [facility]ells Inc [address] [facility]. [address] [place], [place] [address] [facility] Partial Hospitalization and Outpatient Program [address] [place], [place] [phone] Substance use resources provided included: [facility] Substance Abuse Self-Helpline (SASH) ; CRI -HELP [address]12 [facility] [address] ; [facility] [address] [place] [address] ; [facility] [address] [facility] [address] ; [facility] 4940 [facility] [address] ; [facility] [address] [facility] [phone] ; [facility]; [facility]Help [place]; [facility] [place]; Alcoholics Anonymous -SFV"
== END 2020-08-09 14:02 | disposition home or self-care (01) ==
LOC: ER 12:49
DX: F10.129 Alcohol abuse with intoxication, unspecified (principal); Z93.3 Colostomy status; Z88.0 Allergy status to penicillin; Z88.2 Allergy status to sulfonamides; Z91.011 Allergy to milk products; Z60.2 Problems related to living alone; Z79.899 Other long term (current) drug therapy; Y90.9 Presence of alcohol in blood, level not specified

== ENCOUNTER 2020-08-29 03:26 | Emergency (ER) | payer MEDICARE, OTHER ==
[~2020-08-29] VITALS: Ht 165.1 cm; Wt 56.7 kg
[2020-08-29 03:26] VITALS: BP 126/73
--- NOTE | 2020-08-29 04:04 | NUR ---
SANDRA- BROTHER [phone]
--- NOTE | 2020-08-29 07:28 | NUR ---
CALLED SANDRA TO ASSEMBLY MECHANIC THE PATIENT, PER SANDRA, HE DOESN'T DRIVE AND TO CALL FABIOLA. CALLED FABIOLA BUT WENT STRAIGHT TO VOIC[place].
--- NOTE | 2020-08-29 07:48 | NUR ---
PATIENT AWAKE ALERT AND ORIENTED, AMBULATORY WITH STEADY GAIT. COLOSTOMY BAG CHANGED, WANTS TO STEP OUTSIDE. INFORMED PATIENT TO WAIT FOR FAMILY IN THE WAITING ROOM.
--- NOTE | 2020-08-29 07:56 | NUR ---
Patient refused to wait for family, resources provided. Patient given written and verbal discharge instructions. Patient verbalizes understanding of instructions. Patient is ambulatory with steady gait. Refuses offer of penitentiary placement. Patient given list of available shelters in surrounding area.
== END 2020-08-29 07:59 | disposition home or self-care (01) ==
LOC: ER 03:30
DX: F10.10 Alcohol abuse, uncomplicated (principal); Z93.3 Colostomy status; Z88.0 Allergy status to penicillin; Z88.2 Allergy status to sulfonamides; Z91.011 Allergy to milk products; Z60.2 Problems related to living alone; Z79.899 Other long term (current) drug therapy; Y90.9 Presence of alcohol in blood, level not specified

== ENCOUNTER 2020-08-30 15:51 | Emergency (ER) | payer MEDICARE, OTHER ==
[~2020-08-30] VITALS: Ht 165.1 cm; Wt 58.1 kg
--- NOTE | 2020-08-30 16:03 | NUR ---
THE PATIENT IS BIB RA [address] FOR ETOH ABUSE,UNABLE TO GET UP. THE PATIENT ADMITS OF DRINKING ALCOHOL, ALERT AND ORIENTED X1. RESPIRATION REGULAR AND UNLABORED. WILL CONTINUE TO MONITOR THE PATIENT.
--- NOTE | 2020-08-30 21:38 | NUR ---
PT AWAKE, ALER AND AMBULATORY W/ STEADY GAITS. MEDICALLY STABLE FOR DC. Patient discharged to home in stable condition. Written and verbal after care instructions given. Patient verbalizes understanding of instruction. Pt was provided w. proper clothing on discharge
[2020-08-30 22:50] VITALS: BP 131/77
== END 2020-08-30 22:00 | disposition home or self-care (01) ==
LOC: ER 15:53
DX: F10.129 Alcohol abuse with intoxication, unspecified (principal); Z93.3 Colostomy status; Z88.0 Allergy status to penicillin; Z88.2 Allergy status to sulfonamides; Z91.011 Allergy to milk products; Z60.2 Problems related to living alone; Z79.899 Other long term (current) drug therapy; Y90.9 Presence of alcohol in blood, level not specified

== ENCOUNTER 2020-09-10 03:25 | Emergency (ER) | payer MEDICARE, OTHER ==
[~2020-09-10] VITALS: Ht 165.1 cm; Wt 58.1 kg
[2020-09-10 03:25] VITALS: BP 132/64
--- NOTE | 2020-09-10 04:11 | NUR ---
PT REFUSE DISCHARGE INSTRUCTION AND REFUSE TO SIGN HOMELESS DISCHARGE.
== END 2020-09-10 04:14 | disposition home or self-care (01) ==
LOC: ER 03:27
DX: Z43.3 Encounter for attention to colostomy (principal); Z88.0 Allergy status to penicillin; Z88.2 Allergy status to sulfonamides; Z91.011 Allergy to milk products; Z60.2 Problems related to living alone; Z79.899 Other long term (current) drug therapy

== ENCOUNTER 2020-09-11 21:38 | Emergency (ER) | payer MEDICARE, OTHER ==
[~2020-09-11] VITALS: Ht 165.1 cm; Wt 58.1 kg
[2020-09-11 21:38] VITALS: BP 119/78
== END 2020-09-12 02:23 | disposition home or self-care (01) ==
LOC: ER 21:40
DX: F10.129 Alcohol abuse with intoxication, unspecified (principal); Z59.0 Homelessness; Z93.3 Colostomy status; Z88.0 Allergy status to penicillin; Z88.2 Allergy status to sulfonamides; Z91.011 Allergy to milk products; Y90.9 Presence of alcohol in blood, level not specified

== ENCOUNTER 2020-09-13 00:21 | Emergency (ER) | payer MEDICARE, OTHER ==
[~2020-09-13] VITALS: Ht 165.1 cm; Wt 56.7 kg
[2020-09-13 00:28] VITALS: BP 126/71
== END 2020-09-13 05:33 | disposition home or self-care (01) ==
LOC: ER 00:23
DX: Z43.3 Encounter for attention to colostomy (principal); Z88.0 Allergy status to penicillin; Z88.2 Allergy status to sulfonamides; Z91.011 Allergy to milk products; Z60.2 Problems related to living alone; Z79.899 Other long term (current) drug therapy

== ENCOUNTER 2020-09-16 17:04 | Emergency (ER) | payer MEDICARE, OTHER ==
[~2020-09-16] VITALS: Ht 165.1 cm; Wt 56.7 kg
--- NOTE | 2020-09-16 17:12 | NUR ---
LUANNE EASON AT BEDSIDE FOR EVAL.
--- NOTE | 2020-09-16 17:15 | NUR ---
PT BIBRA FROM [facility] C/O RFA PAIN, NOTED SWELLING, ETOH WAITER/WAITRESS THIRD CLASS. SEEN MULTIPLE TIMES FOR SAME COMPLAIN. NO OBVIOUS HEAD TRAUMA NOTED. VERBALLY RESPONSIVE, REQUESTING FOR NEW COLOSTOMY BAG AND FOOD. STABLE VITALS. NAD NOTED. AWAITING MD SALEH.
--- NOTE | 2020-09-16 17:34 | NUR ---
RADIOLOGY AT BEDSIDE FOR RFA XRAY.
[2020-09-16] MEDS ORDERED: TDAP [DIPH/PERTUSSIS/TET] 0.5 ML VIAL IM ONE (17:43)
[2020-09-16] MEDS ORDERED: CLINDAMYCIN HCL 150 MG CAPSULE PO ONE (17:45)
[2020-09-16] MEDS ORDERED: CIPROFLOXACIN HCL 500 MG TABLET ONE (17:45)
[2020-09-16] MEDS: CIPROFLOXACIN HCL 250 MG TABLET PO ONE (17:49)
[2020-09-16] MEDS: TDAP [DIPH/PERTUSSIS/TET] 0.5 ML VIAL IM ONE (17:49)
[2020-09-16] MEDS: CLINDAMYCIN HCL 150 MG CAPSULE PO ONE (17:55)
[2020-09-16] MEDS ORDERED: CLIN300C12 PO (17:58)
[2020-09-16] MEDS ORDERED: CIPR500T5 PO (17:58)
--- NOTE | 2020-09-16 19:26 | NUR ---
PT ASLEEP, NO ACUTE DISTRESS NOTED, RESP EVEN AND UNLABORED. 1:1 SITTER AT BEDSIDE FOR SAFETY
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
[2020-09-16 21:30] VITALS: BP 119/78
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
== END 2020-09-16 22:40 | disposition home or self-care (01) ==
LOC: ER 17:07
DX: S51.831A Puncture wound without foreign body of right forearm, initial encounter (principal); F10.10 Alcohol abuse, uncomplicated; Z93.3 Colostomy status; F41.9 Anxiety disorder, unspecified; Z88.0 Allergy status to penicillin; Z88.2 Allergy status to sulfonamides; Z91.011 Allergy to milk products; Z60.2 Problems related to living alone; Z79.899 Other long term (current) drug therapy; Y04.1XXA Assault by human bite, initial encounter; Y93.89 Activity, other specified; Y92.89 Other specified places as the place of occurrence of the external cause; Y99.8 Other external cause status; Y90.9 Presence of alcohol in blood, level not specified
CPT/HCPCS: 73090-TC; 90715

== ENCOUNTER 2020-09-20 18:52 | Emergency (ER) | payer MEDICARE, OTHER ==
[~2020-09-20] VITALS: Ht 165.1 cm; Wt 56.7 kg
[~2020-09-20 18:52] MED LIST changes: +CIPR500T5 PO; +CLIN300C12 PO
[2020-09-20 19:16] VITALS: BP 132/64
[2020-09-21] MEDS ORDERED: DOXY100C2 PO (18:14)
== END 2020-09-21 00:02 | disposition home or self-care (01) ==
LOC: ER 19:19
DX: F10.229 Alcohol dependence with intoxication, unspecified (principal); Z93.3 Colostomy status; Z88.0 Allergy status to penicillin; Z88.2 Allergy status to sulfonamides; Z91.011 Allergy to milk products; Z60.2 Problems related to living alone; Z79.899 Other long term (current) drug therapy; Y90.9 Presence of alcohol in blood, level not specified

== ENCOUNTER 2020-09-21 17:30 | Emergency (ER) | payer MEDICARE, OTHER ==
[~2020-09-21] VITALS: Ht 167.6 cm; Wt 55.8 kg
--- NOTE | 2020-09-21 18:03 | NUR ---
60 years old female presents to er by ambulance c/o right arm pain no injury, no swelling csm good.placed in gurney no acute distress noted.
[2020-09-21] MEDS ORDERED: DOXY100C2 PO (18:14)
[2020-09-21] MEDS ORDERED: DOXYCYCLINE HYCLATE (100 MG) 100 MG TABLET ONE (18:19)
[2020-09-21] MEDS ORDERED: DOXYCYCLINE HYCLATE (100 MG) 100 MG TABLET PO ONE (18:30)
[2020-09-21 18:58] VITALS: BP 130/70
== END 2020-09-21 19:03 | disposition home or self-care (01) ==
LOC: ER 17:40
DX: L03.113 Cellulitis of right upper limb (principal); F10.129 Alcohol abuse with intoxication, unspecified; F41.9 Anxiety disorder, unspecified; Z93.3 Colostomy status; Z59.0 Homelessness; Z88.0 Allergy status to penicillin; Z88.2 Allergy status to sulfonamides; Z91.011 Allergy to milk products; Z79.899 Other long term (current) drug therapy; Y90.9 Presence of alcohol in blood, level not specified

== ENCOUNTER 2020-09-22 20:53 | Emergency (ER) | payer MEDICARE, OTHER ==
[~2020-09-22] VITALS: Ht 167.6 cm; Wt 55.8 kg
[2020-09-22 20:53] VITALS: BP 129/69
[~2020-09-22 20:53] MED LIST changes: +DOXY100C2 PO
== END 2020-09-23 03:01 | disposition home or self-care (01) ==
LOC: ER 09-23 02:51
DX: F10.129 Alcohol abuse with intoxication, unspecified (principal); F41.9 Anxiety disorder, unspecified; Y90.9 Presence of alcohol in blood, level not specified; Z93.3 Colostomy status; Z59.0 Homelessness; Z86.19 Personal history of other infectious and parasitic diseases; Z88.0 Allergy status to penicillin; Z88.2 Allergy status to sulfonamides; Z91.011 Allergy to milk products; Z79.899 Other long term (current) drug therapy

== ENCOUNTER 2020-09-24 17:01 | Emergency (ER) | payer MEDICARE, OTHER ==
[~2020-09-24] VITALS: Ht 162.6 cm; Wt 61.2 kg
--- NOTE | 2020-09-24 17:40 | NUR ---
HE RAINEY, WAS FOUND IN [facility] [facility] PLAYING WITH COLOSTOMY BAG ETOH NOTED ON BREATH. THE PATIENT IS ALERT AND ORIENTED X2. DENIES PAIN. IN ROOM AIR AND DENIES SOB. RESPIRATION REGULAR AND UNLABORED. WILL CONTINUE TO MONITOR THE PATIENT.
--- NOTE | 2020-09-25 01:30 | NUR ---
Patient discharged to home in stable condition. Written and verbal after care instructions given. Patient verbalizes understanding of instruction.Patient is awake and alert to self, day, and place. PT ambulatory with a steady gait
[2020-09-25 05:38] VITALS: BP 115/79
== END 2020-09-25 05:38 | disposition home or self-care (01) ==
LOC: ER 17:04
DX: F10.129 Alcohol abuse with intoxication, unspecified (principal); F41.9 Anxiety disorder, unspecified; Y90.9 Presence of alcohol in blood, level not specified; Z93.3 Colostomy status; Z86.19 Personal history of other infectious and parasitic diseases; Z88.0 Allergy status to penicillin; Z88.2 Allergy status to sulfonamides; Z91.011 Allergy to milk products; Z59.0 Homelessness; Z79.899 Other long term (current) drug therapy

== ENCOUNTER 2020-09-26 15:30 | Emergency (ER) | payer MEDICARE, OTHER ==
[~2020-09-26] VITALS: Ht 167.6 cm; Wt 56.7 kg
--- NOTE | 2020-09-26 15:55 | NUR ---
BIB RA 78,ETOH,LAYING ON A SIDEWALK,ASKING FOR A SANDWICH UPON ARRIVAL. PATIENT ALERT TO SELF, ASLEEP BUT EASILY AROUSABLE.
--- NOTE | 2020-09-26 17:22 | NUR ---
PATIENT RESTING, NO DISTRESS NOTED. NEEDS ATTENDED.
--- NOTE | 2020-09-26 23:10 | NUR ---
Patient discharged to home in stable condition. Written and verbal after care instructions given. Patient verbalizes understanding of instruction. Pt ambualted out of ED. VSS.
[2020-09-27 00:26] VITALS: BP 125/71
== END 2020-09-27 00:27 | disposition home or self-care (01) ==
LOC: ER 15:36
DX: F10.129 Alcohol abuse with intoxication, unspecified (principal); Z76.5 Malingerer [conscious simulation]; Z59.0 Homelessness; F41.9 Anxiety disorder, unspecified; Z93.3 Colostomy status; Z88.0 Allergy status to penicillin; Z88.2 Allergy status to sulfonamides; Z91.011 Allergy to milk products; Z60.2 Problems related to living alone; Z79.899 Other long term (current) drug therapy; Y90.9 Presence of alcohol in blood, level not specified

== ENCOUNTER 2020-09-28 10:49 | Emergency (ER) | payer MEDICARE, OTHER ==
[~2020-09-28] VITALS: Ht 167.6 cm; Wt 59.9 kg
--- NOTE | 2020-09-28 10:59 | NUR ---
TO ER BED 15 FOR MD SALEH,SIDE RAILS UP,1:1 SITTER AT BEDSIDE
[2020-09-28 11:25] LABS: BASOPHILS # (AUTO) 0.1 K/uL (0.0-0.2); BASOPHILS % (AUTO) 0.6 % (0.0-2.0); EOSINOPHILS % (AUTO) 0.2 % (0.0-6.0); HEMATOCRIT 37 % (33-45); HEMOGLOBIN 12.6 g/dL (11.5-14.8); LYMPHOCYTES # (AUTO) 2.7 K/uL (0.8-4.8); LYMPHOCYTES % (AUTO) 32.8 % (20.0-44.0); MEAN CORPUSCULAR HGB CONC 34 g/dl (31.0-36.0); MEAN CORPUSCULAR VOLUME 97 fL (82-100); MONOCYTES # (AUTO) 0.5 K/uL (0.1-1.30); MONOCYTES % (AUTO) 6.6 % (2.0-12.0); NEUTROPHILS # (AUTO) 4.9 K/uL (1.8-8.9); NEUTROPHILS % (AUTO) 59.8 % (43.0-81.0); PLATELET COUNT (AUTO) 141 K/uL (150-450); RED BLOOD CELL COUNT(AUTO) 3.82 MIL/uL (4.0-5.2); WHITE BLOOD COUNT (AUTO) 8.2 K/uL (4.3-11.0)
[2020-09-28 11:45] LABS: ALBUMIN 3.3 g/dL (3.4-5.0); BILIRUBIN,DIRECT 0.4 mg/dL (0.0-0.2); BILIRUBIN,TOTAL 0.6 mg/dL (0.2-1.0); CALCIUM, SERUM 7.9 mg/dL (8.5-10.1); CREATININE 0.5 mg/dL (0.6-1.3); POTASSIUM 3.5 mmol/L (3.5-5.1); TOTAL PROTEIN, SERUM 7.4 g/dL (6.4-8.2)
--- NOTE | 2020-09-28 13:16 | NUR ---
SS consult requested for ETOH abuse. Pt. is still intoxicated. SW will follow up when pt. has sobered up and is interviewable.
--- NOTE | 2020-09-28 15:41 | NUR ---
THE PATIENT AWAKE AND ALERT. DENIES SOB. IN ROOM AIR. RESPIRATION REGULAR AND UNLABORED. DENIES PAIN. JOLIE CONTINUE TO MONITOR THE PATIENT.
--- NOTE | 2020-09-28 16:12 | NUR ---
SS Consult requested for ETOH abuse & Homelessness. The pt. is a 60-year old female. The pt. appears disheveled is A&O X4 and makes poor eye contact. Pt. has pressure speech and circumstantial thought process. Pt.s mood is depressed and began crying during interview. SINDY explored pt.s living situation. Pt. states he has been homeless for a 18 years. SW explored pt.s mental health Hx. Pt. denies any mental health illness or psychotropic medications. SW explored pt.s drug & ETOH use. Patient stated she is an alcoholic and stated, I was born an alcoholic and denies drug use. SW offered referral to rehab and pt. accepted. Pt. states she is ambulatory. SW explored pt.s support system. Pt. states she has family is in [facility] brother, Flip [phone]. D/C PLAN: SW offered pt. fdc placement and pt. accepted. Pt. will go to [facility] [place] [[address] [facility] [address]; [phone]] Intake is at 12:00 pm daily. Pt. will go via bus and pT. expressed understanding and is agreeable. SW will refer pt. to rehab and pt. will check in daily with [facility] for bed availability. Pt. signed homeless waiver and it was placed in the chart. SINDY provided pt. with homeless resources and he accepted them : RESOURCES: Year-round shelters: [facility] [address] [place], [place] [phone] ; [facility] [address] [place] [address]; [facility] [facility] J[address]ekoc2539 [facility]. [facility] [address] Hygiene: [place] [facility]: [address] [place] ; [place] [facility] [address] [facility] ; [facility] [address] . Food Resources: [place] [facility] at [facility]- [address]. [place]; Meet Each Need with Dignity ([facility]) [address] [address] Valenciag[address] [facility]; [facility] Food Pantry 4390 [facility]; [facility] 8520 Rosemary [facility] [place]. Mental Health resources provided: [facility] [address] [place], [place] [address] ; [facility] Mental Health Center, Inc[facility] [address] [facility] [address], [place] [address] ; [facility] [address] [place], [place] [phone] ; [facility] [address] [place], [place] [address] Healthcare Clinics: [facility] 6551 [facility], [address] [place]. [place] ; [facility] [address] [facility] [address] [place] [address]; [facility] [address] [facility] [place] [address] [phone] Counseling--Outpatient [facility] [address] [facility], [place] [address] (Specializes in in-depth psychotherapy for emotional distress: anxiety, depression, interpersonal conflicts, life transitions, childhood abuse) [facility] [address] [place] [address] (Assist with solving problem marital difficulties, separation & divorce, aging parents, & grief, chronic & terminal illness) [facility] [address] [place] [address] (Deal with loss & grief, anxiety, marital difficulties) Homebound/Mental Health Services [address] [facility], [address] [place], [place] [phone] (Provide in-home mental services to people who are incapable of leaving their homes) Organization for Needs of the Elderly Senior Service/Resource Center [address] [place] [address] [facility] [address] [place] [address] PSYCHIATRIC OUTPATIENT SERVICES [facility] Partial Hospitalization and Intensive Outpatient Program (Managed Care and [place] Only)[address] [facility] [phone] [facility] Partial Hospitalization and Outpatient [address] [place], [place] [phone] [facility] Mental Health Finley Ved15446 [facility]. [address] [place], [place] [phone] [facility] Partial Hospitalization and Outpatient Znlsymx97449 Emelita [facility], [phone] Substance Abuse resources provided included: [facility] Substance Abuse Self-Helpline ([facility]) ; [facility] -HELP [address] [facility]. [place] [address] ; [facility] [address] [facility] [address] ; [facility] [address] [address] vdSt. Peter's Health Partners [address] ; [facility] [address] [facility] [address] ; [facility] 4940 [facility] [address] ; Radha [facility] 909 [facility] [phone] ; [facility] Substance Abuse Helpline([facility])-[facility] ; [facility] ; [facility]; [facility] [place]; [facility] [place]; [facility] Maldonado Nelamacario; [facility]; [facility]; [facility] Yue; [facility]. Nadeen Chambers; Alcoholics Anonymous -SFV; Blu ; Marijuana Anonymous -SFV; Narcotics Anonymous [email or web address];
--- NOTE | 2020-09-28 16:39 | NUR ---
[facility] Referral: SINDY faxed clinicals and Hospital Pre Screen Form to [facility] . Pt. will be calling [facility] daily for bed availability.
--- NOTE | 2020-09-28 17:06 | NUR ---
The patient alert and oriented x4. Denies pain. In room air and denies SOB. Respiration regular and unlabored. Stable gait. Patient discharged to home in stable condition. Written and verbal after care instructions given. Patient verbalizes understanding of instruction.
[2020-09-28 17:07] VITALS: BP 127/85
== END 2020-09-28 17:07 | disposition home or self-care (01) ==
LOC: ER 10:58
DX: F10.129 Alcohol abuse with intoxication, unspecified (principal); F41.9 Anxiety disorder, unspecified; Z93.3 Colostomy status; Z88.0 Allergy status to penicillin; Z88.2 Allergy status to sulfonamides; Z91.011 Allergy to milk products; Z60.2 Problems related to living alone; Z79.899 Other long term (current) drug therapy; Y90.8 Blood alcohol level of 240 mg/100 ml or more
CPT/HCPCS: 36415; 80048-TC; 80076-TC; 85025-TC; G0480

== ENCOUNTER 2020-09-29 06:49 | Emergency (ER) | payer MEDICARE, OTHER ==
[~2020-09-29] VITALS: Ht 167.6 cm; Wt 59.9 kg
[2020-09-29 07:17] LABS: BASOPHILS % (AUTO) 0.6 % (0.0-2.0); EOSINOPHILS % (AUTO) 0.4 % (0.0-6.0); HEMATOCRIT 39 % (33-45); HEMOGLOBIN 13.2 g/dL (11.5-14.8); LYMPHOCYTES # (AUTO) 2.5 K/uL (0.8-4.8); LYMPHOCYTES % (AUTO) 38.5 % (20.0-44.0); MEAN CORPUSCULAR HGB CONC 33 g/dl (31.0-36.0); MEAN CORPUSCULAR VOLUME 97 fL (82-100); MONOCYTES # (AUTO) 0.6 K/uL (0.1-1.30); MONOCYTES % (AUTO) 8.6 % (2.0-12.0); NEUTROPHILS # (AUTO) 3.4 K/uL (1.8-8.9); NEUTROPHILS % (AUTO) 51.9 % (43.0-81.0); PLATELET COUNT (AUTO) 137 K/uL (150-450); RED BLOOD CELL COUNT(AUTO) 4.05 MIL/uL (4.0-5.2); WHITE BLOOD COUNT (AUTO) 6.5 K/uL (4.3-11.0)
--- NOTE | 2020-09-29 07:51 | NUR ---
BIBRA78 FOR ETOH, AMBULATORY AND COHERENT UPON ARRIVAL, REQUESTING FOR COLOSTOMY BAG. ALERT AND ORIENTED X3. DENIES PAIN. IN ROOM AIR AND DENIES SOB. RESPIRATION REGULAR AND UNLABORED. NOTED TO HAVE STABLE GAIT. WILL CONTINUE TO MONITOR THE PATIENT.
[2020-09-29 08:47] LABS: ALBUMIN 3.4 g/dL (3.4-5.0); BILIRUBIN,DIRECT 0.4 mg/dL (0.0-0.2); BILIRUBIN,TOTAL 0.7 mg/dL (0.2-1.0); CALCIUM, SERUM 7.9 mg/dL (8.5-10.1); CREATININE 0.6 mg/dL (0.6-1.3); POTASSIUM 3.9 mmol/L (3.5-5.1); TOTAL PROTEIN, SERUM 7.9 g/dL (6.4-8.2)
--- NOTE | 2020-09-29 09:16 | NUR ---
COLOSTOMY BAG CHANGED. PATIENT A/OX4, BREATHING EVEN AND UNLABORED, NO SOB NOTED. NEEDS ATTENDED.
--- NOTE | 2020-09-29 09:21 | NUR ---
The patient alert and oriented x4. Denies pain. In room air and denies SOB. Respiration regular and unlabored. The patient has stable gait. Colostomy bag is changed. Food provided. All needs attended. Patient discharged in stable condition. Written and verbal after care instructions given. Patient verbalized understanding of instruction.
[2020-09-29 09:22] VITALS: BP 127/76
== END 2020-09-29 09:23 | disposition home or self-care (01) ==
LOC: ER 06:52
DX: F10.129 Alcohol abuse with intoxication, unspecified (principal); K94.00 Colostomy complication, unspecified; F41.9 Anxiety disorder, unspecified; Z88.0 Allergy status to penicillin; Z88.2 Allergy status to sulfonamides; Z91.011 Allergy to milk products; Z60.2 Problems related to living alone; Z79.899 Other long term (current) drug therapy; Y90.8 Blood alcohol level of 240 mg/100 ml or more
CPT/HCPCS: 36415; 80048-TC; 80076-TC; 85025-TC; A4362; G0480

== ENCOUNTER 2021-05-20 14:40 | Emergency (ER) | payer MEDICARE, OTHER ==
[~2021-05-20] VITALS: Ht 167.6 cm; Wt 59.0 kg
[2021-05-20 14:40] VITALS: BP 133/65
--- NOTE | 2021-05-20 15:10 | NUR ---
COLOSTOMY BAG REPLACED.
--- NOTE | 2021-05-20 15:34 | NUR ---
CALLED MARIAH CALLAHAN LEFT VM
--- NOTE | 2021-05-20 16:19 | NUR ---
"Note: Pt. Is a 61-year-old female who demonstrates adequate insight to the reason for hospitalization. Per pt., she is dehydrated, which seems to be her main concern. Pt. has multiple ER visits due to alcohol intoxication. Pt. was oriented x2-3, alert, and hardly cooperative. During interview, pt. was capable of following directions and appeared unkempt. Pt.'s speech was at a normal rate and pt.'s mood was elevated. Pt. reported no hx of mental health, substance abuse, suicidal ideation, or homicidal ideation. Pt. denies auditory hallucinations, visual hallucinations, paranoia, or delusions. SW explored pt.'s living situation. Per pt., she has been homeless on and off for years. SW provided pt. with prison resources and directions. Plan: SW provided available resources and pt. accepted. SW provided pt. with clothing, upon pt. request. SW provided pt. with directions to prison. Resources Provided: [place] [facility]: SPA 2 | [facility] Address: Confidential (call for location ) Population Served: Co[place] # of Beds: 57 SPA 4 | [facility] Provider: Home at Last Address: [address] [place] [address] # of Beds: 49 Population Served: [facility] 6 | [facility] Provider: Home at Last Address: [address] [address] # of Beds: 49 Population Served: [facility] Provider: Hernan Heredia VTHema Address: [address] [facility] [address] # of Beds: 20 Population Served: Women [facility] Facility Provider: Home at Last Address: [address] [facility] [address] # of Beds: 30 Population Served: Women SPA 8 | [facility] Provider: Rosalino Address: [address] [facility] [address] # of Beds: 65 Population Served: [facility] Year-round shelters: [place] [address] [place] [address] ; [place] [facility] [place] [address] [facility] [place] [address]; [facility] [facility] [address] [facility] [address] Winter Shelters: Sofi Carver [place] Provider: [facility] [place] Address: [address] [place], [address] # of Beds: 47 Population Served: [facility] 6 | [facility] Adrianna Blanco [place] Provider: Home at Last Address: [address], [address] # of Beds: 66 Population Served: [facility] Mia[place]ai [place] Provider: First to Serve Address: [address] [facility], [address] # of Beds: 56 Population Served: [facility] Shon TinoEbenezer [place] Provider: /[facility] Address: [address] [facility], [address] # of Beds: 49 Population Served: [facility] 8 | [facility] Provider: First to Serve Address: [address] [facility], [address] # of Beds: 37 Population Served: [facility] Hygiene: [facility]: [address] [place] [facility] ; [facility] [address] [facility] ; [facility] [address] [facility] . Food Resources: [facility] [employer] [facility] at [facility]- [address] [place]; Meet Each Need with Dignity ([facility]) [address] [place]; [facility] Food [facility] [address] [facility]; [facility] [address] [place] Avmichael Riley. Mental Health resources provided: [facility] [address] [facility], [place] [address] ; [facility] [address], [facility] [place] [address] ; [facility] [address] [place] [address] ; [facility] [address] [place], [place] [address]11 Healthcare Clinics: [facility] [address]ou [facility], [address] [place]. [place] ; [facility] [address] [facility] [address] [place] [address]; [facility] [address] [place] [address] [phone] Counseling--Outpatient [facility] [address] [facility], [place] [address] (Specializes in in-depth psychotherapy for emotional distress: anxiety, depression, interpersonal conflicts, life transitions, childhood abuse) [facility] [address] [place] [address] (Assist with solving problem marital difficulties, separation & divorce, aging parents, & grief, chronic & terminal illness) [facility] [address] [place] [address] (Deal with loss & grief, anxiety, marital difficulties) Homebound/Mental Health Services [address], [address] [facility] [place] [address] (Provide in-home mental services to people who are incapable of leaving their homes) [facility] Elderly Senior Service/Resource Center [address] [place] [address] [facility] [address]. [facility] [place] [address] PSYCHIATRIC OUTPATIENT SERVICES [facility] Partial Hospitalization and Intensive Outpatient Program (Managed Care and [place] Only)[address] [address]. [facility] [phone] [facility] Partial Hospitalization and Outpatient [address] [place], [place] [phone] MALDONADO CHOU [facility] Ndj[address]40 Mag[address] [facility]. [address] [place], [place] [phone] [facility] Partial Hospitalization and Outpatient Mnxjxll26476 Emelialanna [facility] Maldonado Chou, [phone] Substance Abuse resources provided included: [facility] Substance Abuse Self-Helpline ([facility]) ; CRI -HELP [address] [facility]. [place] [address] ; [facility] [address] [facility] [address] ; [facility] Rehabilitation Program [address] [facility] [address] ; [place] [address] [facility] [phone] ; [facility] [address] [facility] [address] ; [facility] [address] [facility] [phone] ; [facility] Substance Abuse Helpline([facility] ; [facility] ; [facility] [place]far[facility] [place]; [facility] [place]; [facility] Maldonado Chou; [facility] [place]; [place]; [facility] [place]; Alcoholics Anonymous -[facility]V; Qp-Amih-Lknvkxt ; Marijuana Anonymous -[facility]V; Narcotics Anonymous www.[email or web address];"
--- NOTE | 2021-05-20 17:03 | NUR ---
Patient discharged to home in stable condition. Written and verbal after care instructions given. Patient verbalizes understanding of instruction.
--- NOTE | 2021-05-20 17:03 | NUR ---
Patient given written and verbal discharge instructions. Patient verbalizes understanding of instructions. Patient is ambulatory with steady gait. Refuses offer of [facility] placement. Patient given list of available shelters in surrounding area.
== END 2021-05-20 17:15 | disposition home or self-care (01) ==
LOC: ER 14:45
DX: K94.03 Colostomy malfunction (principal); F41.9 Anxiety disorder, unspecified; Z86.19 Personal history of other infectious and parasitic diseases; Z88.0 Allergy status to penicillin; Z88.2 Allergy status to sulfonamides; Z91.011 Allergy to milk products; Z60.2 Problems related to living alone; Z79.899 Other long term (current) drug therapy